=== PATIENT | female | born 1940 | race Caucasian/White ===

== ENCOUNTER → 2017-01-12 | Outpatient (CLI) | payer OTHER, MEDICARE ==
[~2017-01-12] MED LIST: ACET-1256 PO; ASPI81TA28 PO; ATOR-24 PO; CALC500C70 PO; CARV12.5 PO; CYAN100020 PO; DABI150C PO; GABA-113 PO; GARL1TAB13 PO; HYDR25TA5 PO; OMG3 PO
--- NOTE | 2017-01-12 14:20 | DIAGNOSTIC IMAGING REPORT ---
ULTRASOUND-GUIDED FINE-NEEDLE ASPIRATION BIOPSY OF A LEFT LOBE THYROID NODULE CLINICAL HISTORY: Left lobe thyroid nodule COMPARISON STUDY: Outside ultrasound dated 12/14/2016 FINDINGS: The risks of the procedure were explained the patient and informed consent was obtained. Patient prepped in sterile fashion. The skin over the left neck was anesthetized 1% lidocaine. Under ultrasound guidance, 4 passes into the lower pole left lobe nodule were performed utilizing a 25-gauge needle. Initial pathologic review indicates satisfactory material for diagnosis. There were no immediate complications. IMPRESSION: Successful ultrasound-guided fine-needle aspiration biopsy of a lower pole left lobe thyroid nodule. Electronically signed by: Rajendra Solorio M.D. 01/12/2017 2:19 PM Dictated Date/Time: 01/12/2017 2:18 PM
== END | disposition home or self-care (01) ==
LOC: C.ULTR 12:12
DX: E04.1 Nontoxic single thyroid nodule (principal)

== ENCOUNTER 2018-11-08 11:39 | Inpatient (IN) ==
[2018-11-08] MEDS ORDERED: ACETAMINOPHEN 325 MG TAB PO PRN (14:30)
--- NOTE | 2018-11-08 14:56 | XRay Report ---
XR chest 1V portable CLINICAL HISTORY: SOB COMPARISON STUDY: 12/18/2014 FINDINGS: The heart is enlarged. There is diffuse elevation of the interstitium, likely secondary to pulmonary vascular congestion/fluid overload. There is no lobar consolidation. There are no significa nt pleural effusions.[ IMPRESSION: Cardiomegaly and elevation of the interstitium, likely secondary to congestive failure/fl uid overload. No evidence of lobar consolidation Electronically signed by: Rajendra Solorio M.D. 11/08/2018 2:55 PM
--- NOTE | 2018-11-08 15:21 | History & Physical Report ---
Date of Service November 08, 2018 Assessment & Plan (1) Atrial fibrillation: Pt presents as transfer from [facility] for onset of a-fib RVR this morning. She was admitted there one day ago for SOB, wheezing and diagnosed with RSV on PCR test. Pt with hx PAF. This morning reported heart rate as high as 160. There was given metoprolol 5 mg IV without control of heart rate and was then given Cardizem 20 mg IVP and then placed on Cardizem drip currently at 10 mg/h with HR still elevated in 120-150's. Unsure if pt was receiving her home doses of metoprolol and pradaxa while in hospital Upon arrival to [facility] pt with HR 120's-150's, BP: 98/72, R: 23, 96% on 5L oxygen NC and afebrile -cardiology consult - Dr Prince, appreciate recommendations * heparin IV * IV amiodarone * echo recommended when heart rate decreases per cardiology (2) CHF (congestive heart failure): (3) SOB (shortness of breath): (4) Asthma: (5) HTN (hypertension): (6) Obesity: History of Present Illness Chief Complaint: A-fib RVR Primary Care Provider: Brad Ramirez DO Pt is 77 y/o F with PMH HTN, dyslipidemia, atrial fibrillation on Pradaxa, asthma, diastolic dysfunction, LVH, dynamic LVOT obstruction, obesity, osteoarthritis, GERD presented to [facility] from [facility] for atrial fibrillation with RVR. Patient states was seen at urgent care center 2 days ago for congestion and nonproductive cough that she has been having for several days. She reports was prescribed prednisone and Augmentin. Patient states that increased shortness of breath so went to ER at [facility] yesterday and was admitted to hospital. It is reported that patient was noted to be tachypneic, wheezing in ER with respiratory rate of 32 patient was placed on 2 L oxygen nasal cannula and had unremarkable ABG. It is reported no leukocytosis. Patient was found to have positive RSV and negative influenza on respiratory PCR. She was treated with DuoNeb and later Pulmicort nebs, methylprednisolone IV, and oxygen was increased to 5 L NC. CXR: "Bilateral opacities representing multifocal pneumonia or pulmonary edema". Patient was given dose of cefepime. This morning patient was found to be in atrial fibrillation RVR with heart rate as high as 160. Reported BP 170/62, R: 24. Patient was given metoprolol 5 mg IV without control of heart rate and was then given Cardizem 20 mg IVP and then placed on Cardizem drip currently at 10 mg/h with reported heart rate still in the 1 teens. Upon arrival to [facility] patient heart rate 120s-160s in atrial fibrillation. Patient denies chest pain, palpitations. States she feels tired. Does report still feels short of breath however feels it is improved from when she initially presented to [facility] yesterday. Patient reports she is unsure if she was receiving her metoprolol or pradaxa while in the hospital [place]. She reports chronic BLE edema and doesn't feel has increased LE edema. Follows with Dr Archer for cardiology. Pt reports chronic orthopnea. Denies fever/chills, diaphoresis, N/V/D/C, [place], dizziness, syncope, vision changes, neck pain, sore throat, choking, otalgia, abdominal pain, paresthesias, rashes, urinary symptoms. Allergies Allergy/AdvReac Type Severity Reaction Status Date / Time rivaroxaban Allergy Unknown RASH Unverified 05/27/16 07:10 adhesive AdvReac Mild TAPE - Verified 05/27/16 07:10 TEARS SKIN Home Medications Home Medications Medication Instructions Recorded Confirmed Type albuterol sulfate 2 puff INHALATION QID PRN 11/08/18 11/08/18 History aspirin 81 mg PO DAILY 11/08/18 11/08/18 History cyanocobalamin (vitamin B-12) 1,000 mcg PO DAILY 11/08/18 11/08/18 History [Vitamin B-12] dabigatran etexilate [Pradaxa] 150 mg PO BID 11/08/18 11/08/18 History fluticasone [Flovent HFA] 2 inh INHALATION BID 11/08/18 11/08/18 History furosemide 40 mg PO DAILY 11/08/18 11/08/18 History garlic 1,000 mg PO DAILY 11/08/18 11/08/18 History lorazepam 0.5 mg PO TID PRN 11/08/18 11/08/18 History melatonin 10 mg PO HS PRN 11/08/18 11/08/18 History metoprolol tartrate 100 mg PO TID 11/08/18 11/08/18 History nystatin 100,000 11/08/18 History omega 7-kvy-erw-fish oil [Fish Oil] 1 cap PO DAILY 11/08/18 11/08/18 History potassium chloride [Klor-Con 10] 10 meq PO DAILY 11/08/18 11/08/18 History triamcinolone acetonide 0.1 % TOPICAL BID 11/08/18 11/08/18 History Past Med/Surg History Medical History CHF (congestive heart failure) (Chronic) LVH (left ventricular hypertrophy) (Chronic) Diastolic dysfunction (Chronic) GERD (gastroesophageal reflux disease) (Chronic) Osteoarthritis (Chronic) Obesity (Chronic) Asthma (Chronic) Atrial fibrillation (Chronic) Dyslipidemia (Chronic) HTN (hypertension) (Chronic) Spinal stenosis at L4-L5 level (Chronic) Surgical History History of spinal fusion (Chronic) L4-L5 Hx of tonsillectomy (Chronic) History of appendectomy (Chronic) History of arthroplasty of knee (Chronic) History of carpal tunnel surgery (Chronic) Social History Preferred Language: Yakut Communication Ability: Effective Beliefs That Will Affect Care: None Current Living Situation: Spouse Other Information That Helps Us Care for You: No Feels Safe at Home: Yes Safety Concerns: Feels Safe At This Time Smoking Status: Never smoker Hx Alcohol Use: No Hx Substance Use: No Review of Systems All systems reviewed & are unremarkable except as noted in HPI & below Physical Exam Vital Signs (Past 24 Hours): Last Vital Signs Temp 37.4 C 11/08/18 14:00 Pulse 127 H 11/08/18 14:00 Resp 23 11/08/18 14:00 BP 98/72 L 11/08/18 14:00 Pulse Ox 96 11/08/18 14:00 Physical Exam: General: mild respiratory distress, obese Head: normocephalic, atraumatic Eyes: PERRL, EOM's intact, conjunctiva non-injected, anicteric ENT: normal inspection external ears, nose, mucous membranes moist Neck: supple, trachea midline Lungs:mild respiratory distress, R:24, on 5L NC oxygen with sats 96%, diminished, +wheezing and rhonchi CV: irregularly irregular, rate 140, 1 2+ pretibial edema Abd: normal BS, soft, distended secondary to adipose tissue, non-tender Ext: no calf tenderness, skin discoloration and dry skin lower extremities Neuro: A&O x 3, no focal deficits noted, normal affect Skin: warm, dry Results & Data Laboratory Results Short CBC 11/08/18 Range/Units 15:10 WBC 7.55 (4.8-10.8) K/uL Hgb 13.0 (12.0-16.0) g/dL Hct 40.5 (37-47) % Plt Count 164 (130-400) K/uL BMP 11/08/18 15:10 Sodium 139 Potassium 4.0 Chloride 104 Carbon Dioxide 28 BUN 24 H Creatinine 1.01 Glucose 149 H Calcium 9.0 Cardiac Enzymes 11/08/18 11/08/18 Range/Units 15:10 15:10 Troponin I < 0.015 Cancelled (0-0.045) ng/ml Liver Function 11/08/18 Range/Units 15:10 Total Bilirubin 0.9 (0.2-1) mg/dl AST 12 L (15-37) U/L ALT 18 (12-78) U/L Alkaline Phosphatase 81 (45-117) U/L Albumin 3.1 L (3.4-5.0) gm/dl Diagnostic Findings CXR: IMPRESSION: Cardiomegaly and elevation of the interstitium, likely secondary to congestive failure/fluid overload. No evidence of lobar consolidation ECG Rate (beats per minute): 139 Rhythm: atrial fibrillation Additional Comments: inferior lateral ST abnormality Supervising Physician Co-Signing Physician Notes Attending addendum: The patient was seen and examined Was transferred from [facility] with AF with RVR Denies any sympstoms On Examination No apparent distress Hemodynamically stable with Tachycardia with Atrial Fibrillation Chest-decreased breath sound bilaterally with occasional wheezing and bibasilar crackles Heart-Irregularly irregulater Abdomen-benign Legs-Trace bilateral edema Labs ,imaging studies ant EKG reviewed Appreciate Cardiology input and recommendation Agree with the assessment and plan as outlined by Cesilia Kennedy
--- NOTE | 2018-11-08 15:34 | Cardiology Consultation ---
Date of Consultation November 08, 2018 Assessment & Plan (1) Atrial fibrillation: She is in atrial fibrillation with a rapid heart rate, the heart rate here is 140 bpm and has been since she arrived. She has not responded well to intravenous diltiazem but I believe her beta-blockers were held. She has evidence of congestive heart failure which is most likely diastolic in part due to the rapid heart rate although she also has signs of volume overload. The atrial fibrillation is certainly not helping, I do not know how long she has been in it but it may have something to do with her presentation since she was unaware of being in it. I think we need to get the heart rate under control, and it would probably help to get her back in sinus rhythm. Her last dose of Pradaxa that she took was the evening of November 06, 2018 and I do not believe she has been on an anticoagulant. We need to anticoagulate her, I would use heparin at the moment since we are not sure she will not need some procedure although I doubt it. I am going to start intravenous amiodarone, that will hopefully help with rate control and possibly conversion of her arrhythmia. (2) CHF (congestive heart failure): He has evidence of congestive heart failure on chest x-ray and that may contribute to her bronchospasm and wheezing. She does need to be diuresed despite her low blood pressure. She also has evidence of fluid overload with peripheral edema. It is possible that she has been in atrial fibrillation for longer than she realizes since she is not aware of it. (3) LVH (left ventricular hypertrophy): She has a history of left ventricular hypertrophy and a mid cavitary outflow tract gradient, this was stable as of her most recent echocardiogram which was in May 2018. Although we should probably repeat the ec hocardiogram this admission I would not do it now with a rapid heart rate, the results would most likely be quite misleading. (4) Anticoagulant long-term use: She is on Pradaxa as an outpatient, her last dose was the evening of November 06, 2018. We could continue that here, however I would prefer to use a short acting anticoagulant since she has been off of it now for about 36 hours. I am therefore going to start heparin, that way if we need to we can stop it. Probably when she goes home we can restart the Pradaxa however as she seemed to be tolerating it well. History of Present Illness Reason for Consultation: Atrial fibrillation of the rapid heart rate Attending Physician: Shana Aponte DO History of Present Illness This is a very pleasant 77-year-old woman who follows in our office with Dr. Archer for hypercholesterolemia, hypertension, left ventricular hypertrophy with a dynamic left ventricular outflow tract obstruction, diastolic dysfunction as well as paroxysmal atrial fibrillation. She presented to [facility] with severe shortness of breath, tachypnea and rapid atrial fibrillation. She was not aware of the atrial fibrillation when she presented to [facility], she is aware of it at times but evidently not always. She is normally maintained on Pradaxa but that is on hold I believe. Her rapid atrial fibrillation was treated with intravenous diltiazem. She is on beta-blockade at home, I believe that was held as well. At the time of my evaluation just after she arrived in transfer she was feeling short of breath and audibly wheezing, she was not in severe distress however and denies chest discomfort, palpitations, or recent exertional shortness of breath until this recent episode. She does note swelling over the last several months of both legs, the left greater than the right, but that has not worsened recently. Allergies Allergy/AdvReac Type Severity Reaction Status Date / Time rivaroxaban Allergy Unknown RASH Unverified 05/27/16 07:10 adhesive AdvReac Mild TAPE - Verified 05/27/16 07:10 TEARS SKIN Home Medications Home Medications Medication Instructions Recorded Confirmed Type albuterol sulfate 2 puff INHALATION QID PRN 11/08/18 11/08/18 History aspirin 81 mg PO DAILY 11/08/18 11/08/18 History cyanocobalamin (vitamin B-12) 1,000 mcg PO DAILY 11/08/18 11/08/18 History [Vitamin B-12] dabigatran etexilate [Pradaxa] 150 mg PO BID 11/08/18 11/08/18 History fluticasone [Flovent HFA] 2 inh INHALATION BID 11/08/18 11/08/18 History furosemide 40 mg PO DAILY 11/08/18 11/08/18 History garlic 1,000 mg PO DAILY 11/08/18 11/08/18 History lorazepam 0.5 mg PO TID PRN 11/08/18 11/08/18 History melatonin 10 mg PO HS PRN 11/08/18 11/08/18 History metoprolol tartrate 100 mg PO TID 11/08/18 11/08/18 History metoprolol tartrate 100 mg PO TID 11/08/18 11/08/18 History nystatin 100,000 11/08/18 History omega 3-gjm-kve-fish oil [Fish Oil] 1 cap PO DAILY 11/08/18 11/08/18 History potassium chloride [Klor-Con 10] 10 meq PO DAILY 11/08/18 11/08/18 History triamcinolone acetonide 0.1 % TOPICAL BID 11/08/18 11/08/18 History Patient History Medical History LVH (left ventricular hypertrophy) (Chronic) Diastolic dysfunction (Chronic) GERD (gastroesophageal reflux disease) (Chronic) Osteoarthritis (Chronic) Obesity (Chronic) Asthma (Chronic) Atrial fibrillation (Chronic) Dyslipidemia (Chronic) HTN (hypertension) (Chronic) Spinal stenosis at L4-L5 level (Chronic) Social History Preferred Language: Czech Communication Ability: Effective Beliefs That Will Affect Care: None Current Living Situation: Spouse Other Information That Helps Us Care for You: No Feels Safe at Home: Yes Safety Concerns: Feels Safe At This Time Smoking Status: Never smoker Hx Alcohol Use: No Hx Substance Use: No Review of Systems Negative for lightheadedness, dizziness, palpitations, presyncope or syncope. Recent worsening of dyspnea on exertion, no exertional chest pain. No orthopnea or PND, recent peripheral edema. No GI complaints, no bleeding. No neurologic complaints such as TIA or stroke symptoms. Other systems negative. Physical Exam Vital Signs (Past 24 Hours): Last Vital Signs Temp 37.4 C 11/08/18 14:00 Pulse 127 H 11/08/18 14:00 Resp 23 11/08/18 14:00 BP 98/72 L 11/08/18 14:00 Pulse Ox 96 11/08/18 14:00 Physical Exam: Constitutional: Alert, cooperative and in no distress. HEENT: Unremarkable Neck: No jugular venous distention, carotid pulses are irregular but otherwise normal and equal bilaterally without bruits. Pulmonary: Bilateral rhonchi as well as expiratory wheezing throughout the chest. Cardiac: Irregular rapid rhythm with no murmur, gallop or rub. Abdomen: Soft, nontender with normal bowel sounds. Extremities: +1 bilateral pretibial edema. Distal pulses intact. Neurologic: No focal findings. Gait is steady. Skin: No rash, ecchymoses or petechiae. Results & Data Diagnostic Findings Electrocardiogram: Echocardiogram shows atrial fibrillation with a heart rate of 140 bpm, inferolateral ST-T abnormalities Chest x-ray: Consistent with CHF and pulmonary edema, cardiomegaly although that may be projection on a portable film Telemetry: Sustained high rate during atrial fibrillation since arrival
[2018-11-08] MEDS: dilTIAZem HCl 125 MG in DEXTROSE 5% 100 ML IV SCH ×2 (15:39→22:46)
[2018-11-08] MEDS ORDERED: AMIODARONE IV BOLUS / DRIP IV STA (15:48)
[2018-11-08 15:58] LABS: Basophils # (auto) 0.01 K/uL (0-0.2); Basophils % (auto) 0.1 %; Hematocrit (blood only) 40.5 % (37-47); Immature Granulocytes # (auto) 0.01 K/uL (0.00-0.02); Immature Granulocytes % (auto) 0.1 %; Lymphocytes # (auto) 0.81 K/uL (1.2-3.4); Lymphocytes % (auto) 10.7 %; Mean Corpuscular Volume 88.4 fL (80-100); Monocytes # (auto) 0.28 K/uL (0.11-0.59); Monocytes % (auto) 3.7 %; Neutrophils # (auto) 6.44 K/uL (1.4-6.5); Neutrophils % (auto) 85.4 %; Platelet Count 164 K/uL (130-400); RDW Coefficient of Variation 16.3 % (11.5-14.5); RDW Standard Deviation 52.9 fL (36.4-46.3); Red Blood Count 4.58 M/uL (4.2-5.4); White Blood Count 7.55 K/uL (4.8-10.8)
[2018-11-08 16:12] LABS: INR 1.1 (0.9-1.1); Partial Thromboplastin Time 27.2 Seconds (21.0-31.0)
[2018-11-08 16:16] LABS: Alanine Aminotransferase 18 U/L (12-78); Albumin Level 3.1 gm/dl (3.4-5.0); Aspartate Aminotransferase 12 U/L (15-37); BUN Creatinine Ratio 24.2 (10-20); Blood Urea Nitrogen 24 mg/dl (7-18); Carbon Dioxide 28 mmol/L (21-32); Chloride 104 mmol/L (98-107); Creatinine Clr Calc Pharmacy 56.8 ml/min; Est GFR (African American) 61.7; Est GFR (Non-African American) 53.3; Glucose 149 mg/dl (70-99); Magnesium 2.2 mg/dl (1.8-2.4); Sodium 139 mmol/L (136-145)
[2018-11-08 16:20] LABS: Mean Corpuscular Hgb Conc 32.1 g/dL (32-36)
[2018-11-08] MEDS ORDERED: AMIODARONE / D5W 150 MG/100 ML BAG IV STA (16:20)
[2018-11-08 16:25] LABS: Albumin Globulin Ratio 0.7 (0.9-2); Alkaline Phosphatase 81 U/L (45-117); Bilirubin,Total 0.9 mg/dl (0.2-1); Globulin 4.5 gm/dl (2.5-4.0); NT Pro B Type Natriuretic Pept 8003 pg/ml (0-1800); Total Protein 7.6 gm/dl (6.4-8.2); Troponin I < 0.015 ng/ml (0-0.045)
[2018-11-08] MEDS ORDERED: METOPROLOL TARTRATE 1 MG/ML VIAL IV STA (16:25)
[2018-11-08] MEDS ORDERED: HEPARIN IV BOLUS 6,000 UNITS in SYRINGE 0 ML IV ONE (16:30)
[2018-11-08] MEDS ORDERED: AMIODARONE / D5W 360 MG/200 ML BAG IV SCH (16:30)
[2018-11-08] MEDS: HEPARIN STANDARD DEXTROSE 25,000 UNITS/500 ML IV SCH (16:57)
[2018-11-08] MEDS: FUROSEMIDE 20 MG in SYRINGE 0 ML IV SCH ×2 (17:03→21:23)
[2018-11-08] MEDS ORDERED: LEVALBUTEROL HCL 0.63 MG/3 ML NEB NEB SCH (20:00)
[2018-11-08] MEDS ORDERED: IPRATROPIUM BROMIDE NEB SOLN 0.02% 2.5 ML VIAL INH SCH (20:00)
[2018-11-08] MEDS ORDERED: XOPENEX/ATROVENT 0.63mg/0.5MG NEB COMBO NEB SCH (20:00)
[2018-11-08] MEDS ORDERED: IPRATROPIUM BROMIDE NEB SOLN 0.02% 2.5 ML VIAL INH PRN (20:08)
[2018-11-08] MEDS ORDERED: LEVALBUTEROL HCL 0.63 MG/3 ML NEB NEB PRN (20:08)
[2018-11-08] MEDS: FLUTICASONE PROP HFA INH 44 MCG INHALER INH SCH (21:23)
[2018-11-08] MEDS: DOXYCYCLINE HYCLATE 100 MG in DEXTROSE 5% 100 ML IV SCH (21:23)
[2018-11-08] MEDS: LORazepam 0.5 MG TAB PO PRN (21:24)
[2018-11-08] MEDS: AMIODARONE / D5W 360 MG/200 ML BAG IV SCH (22:39)
[2018-11-08 23:53] LABS: Partial Thromboplastin Ratio 2.4
[2018-11-09 00:07] LABS: Partial Thromboplastin Time 65.4 Seconds (21.0-31.0)
[2018-11-09 04:06] LABS: Basophils # (auto) 0.01 K/uL (0-0.2); Basophils % (auto) 0.1 %; Hematocrit (blood only) 39.6 % (37-47); Hemoglobin 12.6 g/dL (12.0-16.0); Immature Granulocytes # (auto) 0.02 K/uL (0.00-0.02); Immature Granulocytes % (auto) 0.2 %; Lymphocytes # (auto) 1.76 K/uL (1.2-3.4); Mean Corpuscular Hgb Conc 31.8 g/dL (32-36); Mean Corpuscular Volume 88.4 fL (80-100); Mean Platelet Volume 9.4 fL (7.4-10.4); Monocytes # (auto) 1.19 K/uL (0.11-0.59); Monocytes % (auto) 12.9 %; Neutrophils # (auto) 6.26 K/uL (1.4-6.5); Neutrophils % (auto) 67.8 %; Platelet Count 146 K/uL (130-400); RDW Coefficient of Variation 16.4 % (11.5-14.5); RDW Standard Deviation 53.2 fL (36.4-46.3); Red Blood Count 4.48 M/uL (4.2-5.4); White Blood Count 9.24 K/uL (4.8-10.8)
[2018-11-09 04:22] LABS: BUN Creatinine Ratio 26.2 (10-20); Blood Urea Nitrogen 26 mg/dl (7-18); Calcium 8.2 mg/dl (8.5-10.1); Carbon Dioxide 30 mmol/L (21-32); Chloride 102 mmol/L (98-107); Est GFR (African American) 63.3; Est GFR (Non-African American) 54.6; Glucose 143 mg/dl (70-99); Potassium 3.8 mmol/L (3.5-5.1); Sodium 137 mmol/L (136-145)
[2018-11-09 04:27] LABS: Partial Thromboplastin Ratio 2.2; Troponin I < 0.015 ng/ml (0-0.045)
[2018-11-09 04:28] LABS: Partial Thromboplastin Time 58.4 Seconds (21.0-31.0)
[2018-11-09] MEDS: dilTIAZem HCl 125 MG in DEXTROSE 5% 100 ML IV SCH ×2 (06:24→13:28)
[2018-11-09] MEDS: LORazepam 0.5 MG TAB PO PRN (08:15)
[2018-11-09] MEDS: FLUTICASONE PROP HFA INH 44 MCG INHALER INH SCH ×2 (08:16→19:56)
[2018-11-09] MEDS: FUROSEMIDE 20 MG in SYRINGE 0 ML IV SCH ×2 (08:17→19:48)
[2018-11-09] MEDS: DOXYCYCLINE HYCLATE 100 MG in DEXTROSE 5% 100 ML IV SCH ×2 (08:37→19:48)
[2018-11-09] MEDS ORDERED: ALBUTEROL 0.083% NEBU SOLN 3 ML VIAL NEB STA (09:35)
[2018-11-09] MEDS ORDERED: DIGOXIN 500 MCG/2 ML AMP IV ONE ×3 (09:37→11:39)
[2018-11-09] MEDS ORDERED: DIGOXIN 250 MCG in SYRINGE 9 ML IV STA (09:44)
--- NOTE | 2018-11-09 09:58 | Cardiology Progress Note ---
Date of Service November 09, 2018 Assessment & Plan (1) Atrial fibrillation: She remains in atrial fibrillation on amiodarone and high-dose diltiazem. Very little change in heart rate. I suspect it is catecholamine driven, however beta-blockers are relatively contraindicated due to her bronchospasm. There is a difficult situation, I will add digoxin although I do not think it will help much. We may need to cardiovert. She ate breakfast so this will have to be done later today. I will consult anesthesia, I discussed it with her. This will probably be later in the day however due to her eating breakfast. (2) CHF (congestive heart failure): He has evidence of congestive heart failure on chest x-ray and that may contribute to her bronchospasm and wheezing. She does need to be diuresed despite her low blood pressure. She also has evidence of fluid overload with peripheral edema. It is possible that she has been in atrial fibrillation for longer than she realizes since she is not aware of it. She did not diuresis much overnight, I am going to increase her diuretic. (3) LVH (left ventricular hypertrophy): She has a history of left ventricular hypertrophy and a mid cavitary outflow tract gradient, this was stable as of her most recent echocardiogram which was in May 2018. Although we should probably repeat the echocardiogram this admission I would not do it now with a rapid heart rate, the results would most likely be quite misleading. (4) Anticoagulant long-term use: She is on Pradaxa as an outpatient, her last dose was the evening of November 06, 2018. We could continue that here, however I would prefer to use a short acting anticoagulant since she has been off of it now for about 36 hours. She is on heparin, that way if we need to we can stop it. Probably when she goes home we can restart the Pradaxa however as she seemed to be tolerating it well. Subjective She continues with a rapid heart rate, she continues to be quite short of breath. She appears uncomfortable. She denies chest discomfort. Physical Exam Vital Signs (Past 24 Hours): Last Vital Signs Temp 37.6 C H 11/09/18 07:35 Pulse 119 H 11/09/18 08:46 Resp 33 H 11/09/18 07:35 BP 99/79 L 11/09/18 07:35 Pulse Ox 93 11/09/18 07:35 Physical Exam: Constitutional: Alert, cooperative and in no distress. Pulmonary: Bilateral expiratory wheezing and rhonchi. Cardiac: Irregular rapid rhythm with no murmur, gallop or rub. Abdomen: Soft, nontender with normal bowel sounds. Extremities: +2 bilateral edema. Skin: No rash, ecchymoses or petechiae. Results & Data Diagnostic Findings Telemetry: Very little change in heart rate, it remains very elevated.
[2018-11-09] MEDS: methylPREDNISolone 40 MG in SYRINGE 0 ML IV SCH ×2 (10:11→17:36)
[2018-11-09] MEDS: HEPARIN STANDARD DEXTROSE 25,000 UNITS/500 ML IV SCH (11:08)
[2018-11-09] MEDS: AMIODARONE / D5W 360 MG/200 ML BAG IV SCH ×2 (11:09→22:11)
[2018-11-09] MEDS ORDERED: DIGOXIN 250 MCG in SYRINGE 9 ML IV ONE (11:45)
[2018-11-09 12:01] LABS: Allen Test POS (Pos); HCO3 ABG 28 mmol/L (19-24); Oxygen Saturation ABG 92.3 % (90-95); PCO2 ABG 40 mmHg (35-46); PO2 ABG 61 mm/Hg (80-95); pH ABG 7.47 (7.35-7.45)
--- NOTE | 2018-11-09 12:27 | Critical Care Consultation ---
Date of Consultation November 09, 2018 Assessment & Plan (1) Atrial fibrillation with RVR: Reason Critically Ill: 77-year-old female admitted with A. fib RVR and respiratory failure, unable to control rate with amnio drip, diltiazem drip, and digoxin. Will likely need cardioversion this afternoon. Neuro [facility] ICU: Negative Cardiac A. fib RVR/CHFA. fib rate of 170s on monitor, history of paradoxical A. fib, likely has been in A. fib for a while considering pulmonary edema and left ventricular dysfunction -Chest x-ray consistent with pulmonary edema suggestive of CHF -Started on Lasix twice daily by cardiology, given 40 mg IV Lasix on arrival to ICU -We will likely need cardioversion this afternoon -Will give IV metoprolol despite risk for asthma exacerbation -We will obtain TTE once heart rate controlled -Continuing diltiazem and amiodarone drips, digoxin given per cardiology, appreciate recommendations -Continuing heparin drip, patient on Pradaxa as home med but has not taken for past 36 hours Respiratory Hypoxic respiratory failure/asthma exacerbation/pulmonary edemachest x-ray consistent with pulmonary edema, wheezes auscultated over bronchials, likely mixed -Holding albuterol given heart rate -Continue Xopenex -Continue aggressive diuresis -Started on CPAP -ABG: PH 7.47/40/61/28 -Strict I's and O GI GERDcontinue PPI RENAL/LYTES Maximize electrolytes, monitor with routine BMPs and replete as appropriate Voiding no issues ENDO ICU hyperglycemic protocol HEME H&H stable, routine CBCs ID No indication for infectious process at this time LINES/IV ACCESS Peripheral IVs DVT PROPHYLAXIS SCDs, heparin drip (2) CHF (congestive heart failure): (3) Asthma: (4) SOB (shortness of breath): Supervising Physician Co-Signing Physician Notes I have personally evaluated and examined this patient. I agree with assessment and plan of Dot QUARLES. Patient in atrial fibrillation with RVR and hypoxic upon presentation discontinue diltiazem and transition to beta-blockade given 5 mg IV x3 and had significant rate control. She was also started on CPAP with a pressure of 8 cm of water which significantly improved her acute hypoxic respiratory failure. Patient was later cardioverted by cardiology and anesthesia, she had to wait an 8-hour period after having a full meal. This time we will continue with beta-blockade and amiodarone and optimize the patient's electrolytes. Anticipate that the patient has obstructive sleep apnea at baseline, she is morbidly obese with a BMI of 48.5. History of Present Illness Attending Physician: Shana Aponte DO History of Present Illness Ms. Frank is a 77-year-old female past medical history of PAF who was a transfer from [facility] for A. fib RVR, shortness of breath, wheezing. She was found to be positive RSV per PCR at [place]. On arrival to [facility] heart rate was in 150s. She was given 2.5 mg metoprolol IV, amiodarone bolus and drip, diltiazem bolus and drip, and started on digoxin this morning. Chest x-ray yesterday showed signs of pulmonary edema and she was started on Lasix. Heart rate continues to persist in 160s-170s in A. fib RVR. Patient has become increasingly short of breath this morning. Cardiology consulted and recommended increasing Lasix and possible cardioversion this afternoon. On arrival to the ICU the patient is short of breath, breathing shallow and rapidly with respiratory rate in the 30s. She claims she is tired and uncomfortable, ABGs showed mild hypoxia on 3 L nasal cannula and patient switched to CPAP. Also giving IV Lasix. Patient denies chest pain, dizziness, lightheadedness, drowsiness. We will plan to cardiovert this afternoon once outside of 8 hours from patient's last meal which was approximately 0800 this morning. Patient will remain in ICU for now for management of A. fib RVR and respiratory failure. Allergies Allergy/AdvReac Type Severity Reaction Status Date / Time rivaroxaban Allergy Unknown RASH Unverified 05/27/16 07:10 adhesive AdvReac Mild TAPE - Verified 05/27/16 07:10 TEARS SKIN Home Medications Home Medications Medication Instructions Recorded Confirmed Type albuterol sulfate 2 puff INHALATION QID PRN 11/08/18 11/08/18 History aspirin 81 mg PO DAILY 11/08/18 11/08/18 History cyanocobalamin (vitamin B-12) 1,000 mcg PO DAILY 11/08/18 11/08/18 History [Vitamin B-12] dabigatran etexilate [Pradaxa] 150 mg PO BID 11/08/18 11/08/18 History fluticasone [Flovent HFA] 2 inh INHALATION BID 11/08/18 11/08/18 History furosemide 40 mg PO DAILY 11/08/18 11/08/18 History garlic 1,000 mg PO DAILY 11/08/18 11/08/18 History lorazepam 0.5 mg PO TID PRN 11/08/18 11/08/18 History melatonin 10 mg PO HS PRN 11/08/18 11/08/18 History metoprolol tartrate 100 mg PO TID 11/08/18 11/08/18 History nystatin 100,000 11/08/18 History omega 6-cug-gcy-fish oil [Fish Oil] 1 cap PO DAILY 11/08/18 11/08/18 History potassium chloride [Klor-Con 10] 10 meq PO DAILY 11/08/18 11/08/18 History triamcinolone acetonide 0.1 % TOPICAL BID 11/08/18 11/08/18 History Patient History Medical History CHF (congestive heart failure) (Chronic) LVH (left ventricular hypertrophy) (Chronic) Diastolic dysfunction (Chronic) GERD (gastroesophageal reflux disease) (Chronic) Osteoarthritis (Chronic) Obesity (Chronic) Asthma (Chronic) Atrial fibrillation (Chronic) Dyslipidemia (Chronic) HTN (hypertension) (Chronic) Spinal stenosis at L4-L5 level (Chronic) Surgical History History of spinal fusion (Chronic) L4-L5 Hx of tonsillectomy (Chronic) History of appendectomy (Chronic) History of arthroplasty of knee (Chronic) History of carpal tunnel surgery (Chronic) Family History Other AAA (abdominal aortic aneurysm) Coronary heart disease Hypertension Thyroid disease Social History Communication Ability: Effective Beliefs That Will Affect Care: None Current Living Situation: Spouse Other Information That Helps Us Care for You: No Feels Safe at Home: Yes Safety Concerns: Feels Safe At This Time Smoking Status: Never smoker Hx Alcohol Use: No Hx Substance Use: No Review of Systems 12 system ROS negative except for as noted in HPI. See above Constitutional: as per Subjective / HPI Physical Exam Vital Signs (Past 24 Hours): Last Vital Signs Temp 37 C 11/09/18 11:43 Pulse 143 H 11/09/18 11:43 Resp 33 H 11/09/18 11:43 BP 104/85 11/09/18 11:43 Pulse Ox 92 11/09/18 11:43 Constitutional: Obese, acute distress Eyes: PERRL, conjunctivae normal, anicteric sclerae ENMT: external ear and nose normal, oropharynx normal Neck: trachea midline, no thyromegaly Respiratory: Bronchial wheezes auscultated, coarse crackles auscultated bilaterally in all lobes, labored shallow breathing, tachypnea, symmetrical chest wall movement Cardiovascular: No JVD, no edema, good peripheral perfusion, irregular tachycardia consistent with atrial fibrillation on monitor Gastrointestinal (Abdomen): normal bowel sounds, soft, nontender, no hepatosplenomegaly Neurologic: Alert and oriented x3, PERRLA Results & Data Laboratory Results Laboratory Results - last 24 hr 11/08/18 11/08/18 11/08/18 15:10 15:10 15:10 WBC 7.55 RBC 4.58 Hgb 13.0 Hct 40.5 MCV 88.4 MCH 28.4 MCHC 32.1 RDW Std Deviation 52.9 H RDW Coeff of [place] 16.3 H Plt Count 164 MPV 10.0 Immature Gran % (Auto) 0.1 Neut % (Auto) 85.4 Lymph % (Auto) 10.7 [place] % (Auto) 3.7 Eos % (Auto) 0.0 Baso % (Auto) 0.1 Immature Gran # (Auto) 0.01 Neut # (Auto) 6.44 Lymph # (Auto) 0.81 L [place] # (Auto) 0.28 Eos # (Auto) 0.00 Baso # (Auto) 0.01 PT INR APTT PTT Ratio ABG pH ABG pCO2 ABG pO2 ABG HCO3 ABG O2 Saturation ABG Base Excess Abbe Test Barometric Pressure Oxygen Given Sodium 139 Potassium 4.0 Chloride 104 Carbon Dioxide 28 Anion Gap 7.0 BUN 24 H Creatinine 1.01 Est Cr Clr Drug Dosing 56.8 Est GFR ( Amer) 61.7 Est GFR (Non-Af Amer) 53.3 BUN/Creatinine Ratio 24.2 H Glucose 149 H Lactate Calcium 9.0 Magnesium 2.2 Total Bilirubin 0.9 AST 12 L ALT 18 Alkaline Phosphatase 81 Troponin I < 0.015 NT-Pro-B Natriuret Pep 8003 H Total Protein 7.6 Albumin 3.1 L Globulin 4.5 H Albumin/Globulin Ratio 0.7 L Procalcitonin < 0.05 TSH 1.060 11/08/18 11/08/18 11/08/18 15:10 15:10 15:23 WBC RBC Hgb Hct MCV MCH MCHC RDW Std Deviation RDW Coeff of [place] Plt Count MPV Immature Gran % (Auto) Neut % (Auto) Lymph % (Auto) [place] % (Auto) Eos % (Auto) Baso % (Auto) Immature Gran # (Auto) Neut # (Auto) Lymph # (Auto) [place] # (Auto) Eos # (Auto) Baso # (Auto) PT 11.0 INR 1.1 APTT 27.2 PTT Ratio 1.0 ABG pH ABG pCO2 ABG pO2 ABG HCO3 ABG O2 Saturation ABG Base Excess Abbe Test Barometric Pressure Oxygen Given Sodium Potassium Chloride Carbon Dioxide Anion Gap BUN Creatinine Est Cr Clr Drug Dosing Est GFR ( Amer) Est GFR (Non-Af Amer) BUN/Creatinine Ratio Glucose Lactate Calcium Magnesium Total Bilirubin AST ALT Alkaline Phosphatase Troponin I Cancelled NT-Pro-B Natriuret Pep Cancelled Total Protein Albumin Globulin Albumin/Globulin Ratio Procalcitonin TSH 11/08/18 11/08/18 11/08/18 15:23 21:24 22:58 WBC RBC Hgb Hct MCV MCH MCHC RDW Std Deviation RDW Coeff of [place] Plt Count MPV Immature Gran % (Auto) Neut % (Auto) Lymph % (Auto) [place] % (Auto) Eos % (Auto) Baso % (Auto) Immature Gran # (Auto) Neut # (Auto) Lymph # (Auto) [place] # (Auto) Eos # (Auto) Baso # (Auto) PT INR APTT 65.4 H* PTT Ratio 2.4 ABG pH ABG pCO2 ABG pO2 ABG HCO3 ABG O2 Saturation ABG Base Excess Abbe Test Barometric Pressure Oxygen Given Sodium Potassium Chloride Carbon Dioxide Anion Gap BUN Creatinine Est Cr Clr Drug Dosing Est GFR ( Amer) Est GFR (Non-Af Amer) BUN/Creatinine Ratio Glucose Lactate 1.2 Calcium Magnesium Total Bilirubin AST ALT Alkaline Phosphatase Troponin I < 0.015 NT-Pro-B Natriuret Pep Total Protein Albumin Globulin Albumin/Globulin Ratio Procalcitonin [facility] 11/09/18 11/09/18 11/09/18 03:41 03:41 03:41 WBC 9.24 RBC 4.48 Hgb 12.6 Hct 39.6 MCV 88.4 MCH 28.1 MCHC 31.8 L RDW Std Deviation 53.2 H RDW Coeff of [place] 16.4 H Plt Count 146 MPV 9.4 Immature Gran % (Auto) 0.2 Neut % (Auto) 67.8 Lymph % (Auto) 19.0 [place] % (Auto) 12.9 Eos % (Auto) 0.0 Baso % (Auto) 0.1 Immature Gran # (Auto) 0.02 Neut # (Auto) 6.26 Lymph # (Auto) 1.76 [place] # (Auto) 1.19 H Eos # (Auto) 0.00 Baso # (Auto) 0.01 PT INR APTT 58.4 H* PTT Ratio 2.2 ABG pH ABG pCO2 ABG pO2 ABG HCO3 ABG O2 Saturation ABG Base Excess Abbe Test Barometric Pressure Oxygen Given Sodium 137 Potassium 3.8 Chloride 102 Carbon Dioxide 30 Anion Gap 5.0 BUN 26 H Creatinine 0.99 Est Cr Clr Drug Dosing 58.0 Est GFR ( Amer) 63.3 Est GFR (Non-Af Amer) 54.6 BUN/Creatinine Ratio 26.2 H Glucose 143 H Lactate Calcium 8.2 L Magnesium Total Bilirubin AST ALT Alkaline Phosphatase Troponin I < 0.015 NT-Pro-B Natriuret Pep Total Protein Albumin Globulin Albumin/Globulin Ratio Procalcitonin [facility] 11/09/18 11:33 WBC RBC Hgb Hct MCV MCH MCHC RDW Std Deviation RDW Coeff of [place] Plt Count MPV Immature Gran % (Auto) Neut % (Auto) Lymph % (Auto) [place] % (Auto) Eos % (Auto) Baso % (Auto) Immature Gran # (Auto) Neut # (Auto) Lymph # (Auto) [place] # (Auto) Eos # (Auto) Baso # (Auto) PT INR APTT PTT Ratio ABG pH 7.47 H ABG pCO2 40 ABG pO2 61 L ABG HCO3 28 H ABG O2 Saturation 92.3 ABG Base Excess 4.2 H Abbe Test POS Barometric Pressure 732.6 Oxygen Given 3L Sodium Potassium Chloride Carbon Dioxide Anion Gap BUN Creatinine Est Cr Clr Drug Dosing Est GFR ( Amer) Est GFR (Non-Af Amer) BUN/Creatinine Ratio Glucose Lactate Calcium Magnesium Total Bilirubin AST ALT Alkaline Phosphatase Troponin I NT-Pro-B Natriuret Pep Total Protein Albumin Globulin Albumin/Globulin Ratio Procalcitonin TSH Medications Administered Home Medications albuterol sulfate 2 puff INHALATION QID PRN 11/08/18 [History Confirmed 11/08/18] aspirin 81 mg PO DAILY 11/08/18 [History Confirmed 11/08/18] cyanocobalamin (vitamin B-12) [Vitamin B-12] 1,000 mcg PO DAILY 11/08/18 [History Confirmed 11/08/18] dabigatran etexilate [Pradaxa] 150 mg PO BID 11/08/18 [History Confirmed 11/08/18] fluticasone [Flovent HFA] 2 inh INHALATION BID 11/08/18 [History Confirmed 11/08/18] furosemide 40 mg PO DAILY 11/08/18 [History Confirmed 11/08/18] garlic 1,000 mg PO DAILY 11/08/18 [History Confirmed 11/08/18] lorazepam 0.5 mg PO TID PRN 11/08/18 [History Confirmed 11/08/18] melatonin 10 mg PO HS PRN 11/08/18 [History Confirmed 11/08/18] metoprolol tartrate 100 mg PO TID 11/08/18 [History Confirmed 11/08/18] nystatin 100,000 11/08/18 [History] omega 7-zsb-rgd-fish oil [Fish Oil] 1 cap PO DAILY 11/08/18 [History Confirmed 11/08/18] potassium chloride [Klor-Con 10] 10 meq PO DAILY 11/08/18 [History Confirmed 11/08/18] triamcinolone acetonide 0.1 % TOPICAL BID 11/08/18 [History Confirmed 11/08/18] Active Medications Acetaminophen (Tylenol) 650 mg PO Q4H PRN PRN Reason: Pain or Fever Stop: 12/08/18 14:29 Fluticasone Propionate (Flovent Hfa 44mcg) 2 puffs INH BID EWA Stop: 12/08/18 20:59 Last Admin: 11/09/18 08:16 Dose: 2 puffs Documented by: Diltiazem HCl 125 mg/ Dextrose 125 mls @ 15 mls/hr IV .Q8H20M [facility]; Protocol Stop: 12/08/18 14:44 Last Titration: 11/09/18 13:50 Dose: 0 mg/hr, 0 mls/hr Documented by: Amiodarone HCl/Dextrose (Nexterone / D5w) 360 mg in 200 mls @ 16.667 mls/hr IV .Q12H [facility] Stop: 12/08/18 22:29 Last Admin: 11/09/18 11:09 Dose: 0.5 mg/min, 16.7 mls/hr Documented by: Furosemide 20 mg/ Syringe 2 mls @ 4 mls/min IV BID [facility] Stop: 12/08/18 16:29 Last Admin: 11/09/18 08:17 Dose: 4 mls/min Documented by: Doxycycline Hyclate 100 mg/ (Dextrose) 110 mls @ 50 mls/hr IV BID [facility] Stop: 11/15/18 20:59 Last Infusion: 11/09/18 10:50 Dose: Infused Documented by: Heparin Sodium/Dextrose (Heparin Sodium/Dextrose) 25,000 units in 500 mls @ 28 mls/hr IV .[id number] [facility]; Protocol Stop: 12/08/18 16:14 Last Admin: 11/09/18 11:08 Dose: 1,400 units/hr, 28 mls/hr Documented by: Methylprednisolone 40 mg/ (Syringe) 0.64 mls @ 1.5 mls/min IV Q8H [facility] Stop: 12/09/18 09:59 Last Admin: 11/09/18 10:11 Dose: 1.5 mls/min Documented by: Ipratropium [place] (Atrovent 0.02% 0.5mg/2.5ml) 0.5 mg INH Q6R PRN PRN Reason: Shortness Of Breath Or Wheezing Stop: 12/09/18 13:14 Levalbuterol HCl (Xopenex 0.63 Mg/3 Ml Neb) 0.63 mg NEB Q6R PRN PRN Reason: Shortness Of Breath Or Wheezin Stop: 12/09/18 13:14 Lorazepam (Ativan) 0.5 mg PO TID PRN PRN Reason: Anxiety Stop: 12/08/18 15:58 Last Admin: 11/09/18 08:15 Dose: 0.5 mg Documented by:
--- NOTE | 2018-11-09 12:56 | Hospitalist Progress Note ---
Date of Service November 09, 2018 Assessment & Plan (1) Hypoxia: Multifactorial 2/2 asthma exacerbation 2/2 RSV infection in addition to fluid overload on CHF poss 2/2 diastolic heart failure exacerbation. Also her heart rate is very uncontrolled despite max therapy, which may be contributing, however, she is not reporting symptoms with her atrial fib outside of a short period of time this morning. Cont current treatment for asthma exacerbation including scheduled neb treatments, solumedrol 40mg IV q8h. Doxycycline was started yesterday, however, unsure if this is needed. Will cont for now. One hr neb trt did not improve respiratory status so she was started on BIPAP and transferred to the ICU for further monitoring. Cont Lasix for fluid overload-2L out overnight in response to 40mg IV. Planned elective cardioversion after enough time NPO per Dr. Prince from Cardiology who is giving addiitonal dig IV in the meantime. (2) Acute asthma exacerbation: Plan as above. (3) Atrial fibrillation with RVR: Plan as above. (4) RSV (acute bronchiolitis due to respiratory syncytial virus): Cont supportive care. (5) DVT prophylaxis: Heparin drip Full Dispo-to ICU Shana Aponte DO [facility] Hospitalist Subjective 77-year-old female presented as a transfer from [facility] for acute onset of atrial fibrillation with RVR. She has a history of paroxysmal A. fib. She was also diagnosed with RSV via a PCR test as outpatient 2 days ago. She w as admitted to the hospitalist service and cardiology was consulted. She was placed on IV heparin drip and IV amiodarone. Cardizem drip was initiated for rate control. Chest x-ray revealed fluid overload state. Lasix was initiated at 20 mg IV twice daily. Overnight she room received 40 mg with subsequent 2 L output. She has a history of asthma but denies any exacerbations in the past. She does use inhalers as outpatient. This morning her heart rate is uncontrolled at 150-180. She is wheezing profusely and is tachypneic with a respiratory rate of 30-33. I discussed the case with Dr. Betsey Arce who agrees with digoxin in addition to continuing diltiazem and amiodarone. We discussed that beta-blockers would be contraindicated with her active wheezing. He is planning to perform elective cardioversion if digoxin is unsuccessful later this afternoon. She did eat this morning. On reevaluation after an hour-long nebulizer heart rate was still in the 150s and tachypnea was not improved. Therefore, she was transferred to the ICU for further monitoring and placed on BiPAP for therapy. Continue with duo nebs that were ordered scheduled this morning, IV Solu-Medrol 40 mg every 8 hours (first dose this am), and doxycycline as ordered yesterday. I did leave a message on her 's voicemail as I was unable to reach her or her daughter listed as points of contact. ICU number was left for them to call. Physical Exam Vital Signs (Past 24 Hours): Last Vital Signs Temp 37 C 11/09/18 11:43 Pulse 143 H 11/09/18 11:43 Resp 33 H 11/09/18 11:43 BP 104/85 11/09/18 11:43 Pulse Ox 92 11/09/18 11:43 CONSTITUTIONAL: WNWD, vitals as above, in acute respiratory distress EYES: normal conjuctivae, no scleral icterus ENT: MMM RESPIRATORY: diffuse wheezing throughout all lung richter. Crackles at bases bi laterally. Coarse rhonchi also heard. Repsiratory distress and conversational dyspnea is present. CARDIOVASCULAR: tachy rate and irregular rhythm, S1 and 2 heard without murmurs, but this was difficult to auscultate with the adventitial breath sounds in the background GASTROINTESTINAL: normal bowel sounds, soft, nontender, nondistended. MUSCULOSKELETAL: strength 5/5 throughout, head is normocephalic and atraumatic SKIN: warm and dry NEUROLOGIC: CN 2-12 grossly intact, normal cognition, no gross focal deficits. PSYCHIATRIC: alert cooperative and oriented to person, place and time. Results & Data Laboratory Results Short CBC 11/08/18 11/09/18 Range/Units 15:10 03:41 WBC 7.55 9.24 (4.8-10.8) K/uL Hgb 13.0 12.6 (12.0-16.0) g/dL Hct 40.5 39.6 (37-47) % Plt Count 164 146 (130-400) K/uL BMP 11/08/18 11/09/18 15:10 03:41 Sodium 139 137 Potassium 4.0 3.8 Chloride 104 102 Carbon Dioxide 28 30 BUN 24 H 26 H Creatinine 1.01 0.99 Glucose 149 H 143 H Calcium 9.0 8.2 L Cardiac Enzymes 11/08/18 11/08/18 11/08/18 Range/Units 15:10 15:10 21:24 Troponin I < 0.015 Cancelled < 0.015 (0-0.045) ng/ml 11/09/18 Range/Units 03:41 Troponin I < 0.015 (0-0.045) ng/ml Liver Function 11/08/18 Range/Units 15:10 Total Bilirubin 0.9 (0.2-1) mg/dl AST 12 L (15-37) U/L ALT 18 (12-78) U/L Alkaline Phosphatase 81 (45-117) U/L Albumin 3.1 L (3.4-5.0) gm/dl Medications Administered Current Inpatient Medications Acetaminophen (Tylenol) 650 mg PO Q4H PRN PRN Reason: Pain or Fever Stop: 12/08/18 14:29 Fluticasone Propionate (Flovent Hfa 44mcg) 2 puffs INH BID [facility] Stop: 12/08/18 20:59 Last Admin: 11/09/18 08:16 Dose: 2 puffs Documented by: Diltiazem HCl 125 mg/ Dextrose 125 mls @ 15 mls/hr IV .Q8H20M [facility]; Protocol Stop: 12/08/18 14:44 Last Titration: 11/09/18 07:06 Dose: 15 mg/hr, 15 mls/hr Documented by: Amiodarone HCl/Dextrose (Nexterone / D5w) 360 mg in 200 mls @ 16.667 mls/hr IV .Q12H [facility] Stop: 12/08/18 22:29 Last Admin: 11/09/18 11:09 Dose: 0.5 mg/min, 16.7 mls/hr Documented by: Furosemide 20 mg/ Syringe 2 mls @ 4 mls/min IV BID [facility] Stop: 12/08/18 16:29 Last Admin: 11/09/18 08:17 Dose: 4 mls/min Documented by: Doxycycline Hyclate 100 mg/ (Dextrose) 110 mls @ 50 mls/hr IV BID [facility] Stop: 11/15/18 20:59 Last Infusion: 11/09/18 10:50 Dose: Infused Documented by: Heparin Sodium/Dextrose (Heparin Sodium/Dextrose) 25,000 units in 500 mls @ 28 mls/hr IV .[id number] [facility]; Protocol Stop: 12/08/18 16:14 Last Admin: 11/09/18 11:08 Dose: 1,400 units/hr, 28 mls/hr Documented by: Methylprednisolone 40 mg/ (Syringe) 0.64 mls @ 1.5 mls/min IV Q8H [facility] Stop: 12/09/18 09:59 Last Admin: 11/09/18 10:11 Dose: 1.5 mls/min Documented by: Ipratropium [place] (Atrovent 0.02% 0.5mg/2.5ml) 0.5 mg INH Q6R [facility] Stop: 12/09/18 13:59 Levalbuterol HCl (Xopenex 0.63 Mg/3 Ml Neb) 0.63 mg NEB Q6R [facility] Stop: 12/09/18 13:59 Lorazepam (Ativan) 0.5 mg PO TID PRN PRN Reason: Anxiety Stop: 12/08/18 15:58 Last Admin: 11/09/18 08:15 Dose: 0.5 mg Documented by:
[2018-11-09] MEDS ORDERED: XOPENEX/ATROVENT 0.63mg/0.5MG NEB COMBO NEB PRN (13:12)
[2018-11-09] MEDS ORDERED: METOPROLOL TARTRATE 1 MG/ML VIAL IV STA ×3 (13:40→14:13)
[2018-11-09] MEDS ORDERED: FUROSEMIDE 40 MG in SYRINGE 0 ML IV ONE (13:40)
[2018-11-09] MEDS ORDERED: METOPROLOL TARTRATE 1 MG/ML VIAL IV ONE (13:41)
[2018-11-09] MEDS ORDERED: LEVALBUTEROL HCL 0.63 MG/3 ML NEB NEB SCH (14:00)
[2018-11-09] MEDS ORDERED: IPRATROPIUM BROMIDE NEB SOLN 0.02% 2.5 ML VIAL INH SCH (14:00)
[2018-11-09] MEDS ORDERED: POTASSIUM CHLORIDE 10 MEQ TABCR PO STA (14:14)
--- NOTE | 2018-11-09 15:23 | Anesthesiology Consultation ---
Date of Service November 09, 2018 Assessment & Plan (1) Encounter for pre-operative examination: Chart Review Chart Review: Acceptable Risk for Surgery Consults Requested medical & cardiac Pulmonary ASA ASA4 Proposed Anesthesia Anesthesia Type: MAC Risk / Benefits Reviewed With: PT / POA / Parent / Guardian, Accepts Plan and Informed Consent Obtained NPO Date Last Intake of Fluids: 11/09/18 Time Last Intake of Fluids: 07:30 Date Last Intake of Solids: 11/09/18 Time Last Intake of Solids: 07:30 History Height/Weight Height: 5 ft 2 in Weight: 120.4 kg Allergies Allergy/AdvReac Type Severity Reaction Status Date / Time rivaroxaban Allergy Unknown RASH Unverified 05/27/16 07:10 adhesive AdvReac Mild TAPE - Verified 05/27/16 07:10 TEARS SKIN Medications Home Medications Medication Instructions Recorded Confirmed Last Taken albuterol sulfate 2 puff INHALATION QID PRN 11/08/18 11/08/18 Unknown aspirin 81 mg PO DAILY 11/08/18 11/08/18 Unknown cyanocobalamin (vitamin B-12) 1,000 mcg PO DAILY 11/08/18 11/08/18 Unknown [Vitamin B-12] dabigatran etexilate [Pradaxa] 150 mg PO BID 11/08/18 11/08/18 11/06/18 fluticasone [Flovent HFA] 2 inh INHALATION BID 11/08/18 11/08/18 11/06/18 furosemide 40 mg PO DAILY 11/08/18 11/08/18 11/06/18 garlic 1,000 mg PO DAILY 11/08/18 11/08/18 Unknown lorazepam 0.5 mg PO TID PRN 11/08/18 11/08/18 Unknown melatonin 10 mg PO HS PRN 11/08/18 11/08/18 Unknown metoprolol tartrate 100 mg PO TID 11/08/18 11/08/18 11/06/18 nystatin 100,000 11/08/18 11/06/18 omega [id number] oil [Fish Oil] 1 cap PO DAILY 11/08/18 11/08/18 Unknown potassium chloride [Klor-Con 10] 10 meq PO DAILY 11/08/18 11/08/18 11/06/18 triamcinolone acetonide 0.1 % TOPICAL BID 11/08/18 11/08/18 11/06/18 Active Medications Generic Name Dose Route Start Last Admin Trade Name Freq PRN Reason Stop Dose Admin Fluticasone Propionate 2 puffs 11/08/18 21:00 11/09/18 08:16 Flovent Hfa 44mcg INH 12/08/18 20:59 2 puffs BID EWA Administration Diltiazem HCl 125 mg/ Dextrose 125 mls @ 0 mls/hr 11/08/18 14:45 11/09/18 13:50 IV 12/08/18 14:44 0 mg/hr .Q0M EWA 0 mls/hr Titration Protocol 0 MG/HR Amiodarone HCl/Dextrose 360 mg in 200 mls @ 16.667 mls/hr 11/08/18 22:30 11/09/18 11:09 Nexterone / D5w IV 12/08/18 22:29 0.5 mg/min .Q12H EWA 16.7 mls/hr Administration 0.5 MG/MIN Furosemide 20 mg/ Syringe 2 mls @ 4 mls/min 11/08/18 16:30 11/09/18 08:17 IV 12/08/18 16:29 4 mls/min BID EWA Administration Doxycycline Hyclate 100 mg/ 110 mls @ 50 mls/hr 11/08/18 21:00 11/09/18 10:50 Dextrose IV 11/15/18 20:59 Infused BID EWA Infusion Heparin Sodium/Dextrose 25,000 units in 500 mls @ 28 mls/hr 11/08/18 16:15 11/09/18 11:08 Heparin Sodium/Dextrose IV 12/08/18 16:14 1,400 units/hr .[id number] EWA 28 mls/hr Administration Protocol 1,400 UNITS/HR Methylprednisolone 40 mg/ 0.64 mls @ 1.5 mls/min 11/09/18 10:00 11/09/18 10:11 Syringe IV 12/09/18 09:59 1.5 mls/min Q8H EWA Administration Lorazepam 0.5 mg 11/08/18 15:59 11/09/18 08:15 Ativan PO 12/08/18 15:58 0.5 mg TID PRN Administration Anxiety Past Medical History Medical History CHF (congestive heart failure) (Chronic) LVH (left ventricular hypertrophy) (Chronic) Diastolic dysfunction (Chronic) GERD (gastroesophageal reflux disease) (Chronic) Osteoarthritis (Chronic) Obesity (Chronic) Asthma (Chronic) Atrial fibrillation (Chronic) Dyslipidemia (Chronic) HTN (hypertension) (Chronic) Spinal stenosis at L4-L5 level (Chronic) Past Family History Family History Other AAA (abdominal aortic aneurysm) Coronary heart disease Hypertension Thyroid disease Past Surgical History Surgical History History of spinal fusion (Chronic) L4-L5 Hx of tonsillectomy (Chronic) History of appendectomy (Chronic) History of arthroplasty of knee (Chronic) History of carpal tunnel surgery (Chronic) Past Anesthesia History No Hx of Anesthesia Complications and No Family Hx of Anesthesia Complications History of PONV No Motion Sickness Screening History of Motion Sickness: No Social History Smoking Status: Never smoker Hx Alcohol Use: No Hx Substance Use: No substance use type: does not use Exercise / Class Metabolic Activity III < 4 Walking/Shop/Light housework Physical Exam Vital Signs Last Vital Signs Temp 98.2 F 11/09/18 12:30 Pulse 119 H 11/09/18 14:47 Resp 30 H 11/09/18 14:31 BP 145/90 H 11/09/18 14:47 Pulse Ox 95 11/09/18 14:31 ENMT Mouth: no dentition abnormality Thyromental Distance: > or= 3.5 Finger Breadths Mallampati Class: II Neck normal visual inspection Respiratory normal respiratory effort, + respiratory distress and + tachypneic Cardiovascular Rate/Rhythm: + tachycardic; + abnormal rate and + abnormal rhythm Testing Electrocardiogram Date: 11/09/18 Atrial fibrillation with rapid ventricular response ST & T wave abnormality, consider inferolateral ischemia Rate 125 bpm Chest X-Ray Date: 11/08/18 Cardiomegaly and elevation of the interstitium, likely secondary to congestive failure/fluid overload. No evidence of lobar consolidation Laboratory Results 11/09/18 03:41 11/09/18 03:41 PT 11.0 Seconds (9.0-12.0) 11/08/18 15:23 INR 1.1 (0.9-1.1) 11/08/18 15:23 APTT 58.4 Seconds (21.0-31.0) H* 11/09/18 03:41
--- NOTE | 2018-11-09 15:45 | Cardioversion ---
Date of Service November 09, 2018 Electrical Cardioversion Rpt Electrical Cardioversion Report The patient was evaluated in her room in ICU, connected to the recording apparatus including electrocardiographic monitoring, noninvasive blood pressure monitoring and pulse oximetry. Anteroposterior patch electrodes were placed. The patient was anesthetized by the anesthesia department. Once adequate anesthesia was obtained a synchronized biphasic shock was delivered using 200 J with conversion to a sinus rhythm.
[2018-11-09] MEDS ORDERED: LIDOCAINE HCL 2% 2 ML VIAL/AMP(20MG/ML) INFIL ONE (15:52)
[2018-11-09] MEDS ORDERED: PROPOFOL IV EMULSION 10 MG/ML 20 ML VIAL IV ONE (15:52)
--- NOTE | 2018-11-09 15:55 | Anesthesiology Progress Note ---
Date of Service November 09, 2018 Anesthesia Post Procedure Vital Signs Vital Signs: Temp Pulse Pulse Resp BP BP Pulse Ox 11/09/18 14:47 119 H 145/90 H 11/09/18 14:46 145 H 140/95 11/09/18 14:31 112 H 30 H 148/93 H 95 11/09/18 14:30 108 H 32 H 93 11/09/18 14:16 115 H 29 H 122/90 95 11/09/18 14:00 102 H 32 H 145/95 H 92 11/09/18 13:54 154 H 141/103 H 11/09/18 13:45 156 H 36 H 93 11/09/18 13:30 150 H 35 H 141/103 H 89 L 11/09/18 13:00 164 H 37 H 130/90 89 L 11/09/18 12:31 160 H 35 H 131/78 92 11/09/18 12:30 98.2 F 160 H 163 H 32 H 131/78 92 11/09/18 11:43 98.6 F 143 H 33 H 104/85 92 11/09/18 11:36 164 H 11/09/18 10:00 127 H 24 93 11/09/18 09:59 154 H 11/09/18 08:46 119 H 11/09/18 07:35 99.7 F H 127 H 33 H 99/79 L 93 11/09/18 03:08 98.2 F 117 H 24 91/60 L 93 11/09/18 00:11 99.3 F 105 H 22 98/72 L 94 11/08/18 21:55 120 H 26 H 98/69 L 93 11/08/18 20:00 87 11/08/18 19:13 119 H 20 96 11/08/18 18:54 115 H 28 H 108/82 93 Notes Mental Status: alert / awake / arousable and participated in evaluation Patient Amnestic to Procedure: Yes Nausea / Vomiting: adequately controlled Pain: adequately controlled Airway Patency, RR, SpO2: stable & adequate BP & HR: stable & adequate Hydration State: stable & adequate Anesthetic Complications: no major complications apparent and Pt Satisfied with anesthetic care
[2018-11-09] MEDS: POTASSIUM ACETATE 10 MEQ in 0.9 % SODIUM CHLORIDE 100 ML IV SCH ×2 (16:30→17:36)
[2018-11-09] MEDS: MAGNESIUM OXIDE 400 MG TAB PO SCH ×2 (16:30→19:48)
[2018-11-10] MEDS: methylPREDNISolone 40 MG in SYRINGE 0 ML IV SCH ×2 (01:17→19:51)
[2018-11-10 04:57] LABS: Hematocrit (blood only) 41.8 % (37-47); Hemoglobin 13.5 g/dL (12.0-16.0); Mean Corpuscular Hgb Conc 32.3 g/dL (32-36); Mean Corpuscular Volume 88.6 fL (80-100); Platelet Count 157 K/uL (130-400); RDW Coefficient of Variation 16.3 % (11.5-14.5); RDW Standard Deviation 53.6 fL (36.4-46.3); Red Blood Count 4.72 M/uL (4.2-5.4); White Blood Count 9.98 K/uL (4.8-10.8)
[2018-11-10 05:15] LABS: BUN Creatinine Ratio 28.6 (10-20); Calcium 8.5 mg/dl (8.5-10.1); Creatinine Clr Calc Pharmacy 62.9 ml/min; Est GFR (Non-African American) 60.4
[2018-11-10 05:27] LABS: Partial Thromboplastin Time 54.7 Seconds (21.0-31.0)
[2018-11-10] MEDS: HEPARIN STANDARD DEXTROSE 25,000 UNITS/500 ML IV SCH ×2 (06:31→23:09)
[2018-11-10] MEDS: LEVALBUTEROL HCL 0.63 MG/3 ML NEB NEB PRN (06:34)
[2018-11-10] MEDS: IPRATROPIUM BROMIDE NEB SOLN 0.02% 2.5 ML VIAL INH PRN (06:35)
--- NOTE | 2018-11-10 06:49 | Critical Care Progress Note ---
Date of Service November 10, 2018 Assessment & Plan (1) Atrial fibrillation with RVR: Reason Critically Ill: 77-year-old female admitted with A. fib RVR and respiratory failure, unable to control rate with amnio drip, diltiazem drip, and digoxin. Will likely need cardioversion this afternoon. Neuro CAM ICU: Negative Cardiac A. fib RVR/CHFA. fib rate of 170s on monitor, history of paradoxical A. fib, likely has been in A. 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 -Patient clears with cough -Continue Xopenex as needed -Continue aggressive diuresis -Increased expiratory positive pressure to 12 GI GERDcontinue PPI RENAL/LYTES Optimize electrolytes of potassium greater than 4.5 given 40 M EQ K-Dur twice daily today Voiding no issues ENDO ICU hyperglycemic protocol -40 mg prednisone daily HEME H&H stable, routine CBCs ID No indication for infectious process at this time LINES/IV ACCESS Peripheral IVs DVT PROPHYLAXIS SCDs, heparin drip PT OT:encourage ambulation/out of bed to chair Patient is improved and stable for downgrade out of ICU to telemetry status (2) CHF (congestive heart failure): (3) Asthma: (4) SOB (shortness of breath): Subjective Ms. Frank is a 77-year-old female past medical history of PAF who was a transfer from [facility] for A. fib RVR, shortness of breath, wheezing. She was found to be positive RSV per PCR at [place]. On arrival to [facility] heart rate was in 150s. She was given 2.5 mg metoprolol IV, amiodarone bolus and drip, diltiazem bolus and drip, and started on digoxin this yesterday morning. Initial chest x-ray yesterday showed signs of pulmonary edema and she was started on Lasix. Heart rate continued to persist in 160s-170s in A. fib RVR. Patient had become increasingly SOB yesterday morniing and she was transferred to ICU. Cardiology cardioverted yesterday afternoon. Patient SR-ST w/ PACs since. PAtient started on CPAP and diuresis increased. Arturo is still SOB but claims it has significantly improved from yesterday. She is also less tachypneic and appears more comfortable. She does report a nonproductive cough this morning and lungs sound coarse. Repeating chest x-ray. Patient denies silverio st pain, dizziness, lightheadedness, palpitations, drowsiness. Patient will remain in ICU for now for management of A. fib RVR and CHF/respiratory failure. Review of Systems All systems reviewed & are unremarkable except as noted in HPI & below Physical Exam Vital Signs (Past 24 Hours): Last Vital Signs Temp 37 C 11/10/18 06:00 Pulse 98 H 11/10/18 06:35 Resp 22 11/10/18 06:35 BP 139/87 11/10/18 06:00 Pulse Ox 95 11/10/18 06:35 Constitutional: WD/WN, vitals as above + obese Eyes: PERRL, conjunctivae normal, anicteric sclerae Neck: trachea midline, no thyromegaly Respiratory: Tachypnea, short shallow breathing, coarse crackles auscultated in all lobes bilaterally, nonproductive cough Cardiovascular: Irregular sinus tachycardia on monitor, S4 murmur auscultated, good peripheral perfusion, no tactile fremitus Gastrointestinal (Abdomen): Abdomen obese, nontender, bowel sounds auscultated in all 4 quadrants Neurologic: Alert and oriented x3, PERRLA, symmetrical movement and strength bilaterally Results & Data Laboratory Results Laboratory Results - last 24 hr 11/09/18 11/09/18 11/09/18 11:33 12:30 16:20 WBC RBC Hgb Hct MCV MCH MCHC RDW Std Deviation RDW Coeff of Allen Plt Count MPV APTT PTT Ratio ABG pH 7.47 H ABG pCO2 40 ABG pO2 61 L ABG HCO3 28 H ABG O2 Saturation 92.3 ABG Base Excess 4.2 H Abbe Test POS Barometric Pressure 732.6 Oxygen Given 3L Sodium Potassium Chloride Carbon Dioxide Anion Gap BUN Creatinine Est Cr Clr Drug Dosing Est GFR ( Amer) Est GFR (Non-Af Amer) BUN/Creatinine Ratio Glucose POC Glucose 175 H Calcium Nasal Screen MRSA (PCR) Negative Digoxin 11/10/18 11/10/1819 04:21 04:21 04:21 WBC 9.98 RBC 4.72 Hgb 13.5 Hct 41.8 MCV 88.6 MCH 28.6 MCHC 32.3 RDW Std Deviation 53.6 H RDW Coeff of Allen 16.3 H Plt Count 157 MPV 10.0 APTT 54.7 H* PTT Ratio 2.0 ABG pH ABG pCO2 ABG pO2 ABG HCO3 ABG O2 Saturation ABG Base Excess Abbe Test Barometric Pressure Oxygen Given Sodium 139 Potassium 4.0 Chloride 102 Carbon Dioxide 33 H Anion Gap 4.0 BUN 26 H Creatinine 0.91 Est Cr Clr Drug Dosing 62.9 Est GFR ( Amer) 70.0 Est GFR (Non-Af Amer) 60.4 BUN/Creatinine Ratio 28.6 H Glucose 154 H POC Glucose Calcium 8.5 Nasal Screen MRSA (PCR) Digoxin 11/10/18 04:21 WBC RBC Hgb Hct MCV MCH MCHC RDW Std Deviation RDW Coeff of Allen Plt Count MPV APTT PTT Ratio ABG pH ABG pCO2 ABG pO2 ABG HCO3 ABG O2 Saturation ABG Base Excess Abbe Test Barometric Pressure Oxygen Given Sodium Potassium Chloride Carbon Dioxide Anion Gap BUN Creatinine Est Cr Clr Drug Dosing Est GFR ( Amer) Est GFR (Non-Af Amer) BUN/Creatinine Ratio Glucose POC Glucose Calcium Nasal Screen MRSA (PCR) Digoxin 1.1 Medications Administered Home Medications albuterol sulfate 2 puff INHALATION QID PRN 11/08/18 [History Confirmed 11/08/18] aspirin 81 mg PO DAILY 11/08/18 [History Confirmed 11/08/18] cyanocobalamin (vitamin B-12) [Vitamin B-12] 1,000 mcg PO DAILY 11/08/18 [History Confirmed 11/08/18] dabigatran etexilate [Pradaxa] 150 mg PO BID 11/08/18 [History Confirmed 11/08/18] fluticasone [Flovent HFA] 2 inh INHALATION BID 11/08/18 [History Confirmed 11/08/18] furosemide 40 mg PO DAILY 11/08/18 [History Confirmed 11/08/18] garlic 1,000 mg PO DAILY 11/08/18 [History Confirmed 11/08/18] lorazepam 0.5 mg PO TID PRN 11/08/18 [History Confirmed 11/08/18] melatonin 10 mg PO HS PRN 11/08/18 [History Confirmed 11/08/18] metoprolol tartrate 100 mg PO TID 11/08/18 [History Confirmed 11/08/18] nystatin 100,000 11/08/18 [History] omega 2-lcb-noq-fish oil [Fish Oil] 1 cap PO DAILY 11/08/18 [History Confirmed 11/08/18] potassium chloride [Klor-Con 10] 10 meq PO DAILY 11/08/18 [History Confirmed 11/08/18] triamcinolone acetonide 0.1 % TOPICAL BID 11/08/18 [History Confirmed 11/08/18] Active Medications Acetaminophen (Tylenol) 650 mg PO Q4H PRN PRN Reason: Pain or Fever Stop: 12/08/18 14:29 Fluticasone Propionate (Flovent Hfa 44mcg) 2 puffs INH BID [facility] Stop: 12/08/18 20:59 Last Admin: 11/10/18 08:01 Dose: 2 puffs Documented by: Amiodarone HCl/Dextrose (Nexterone / D5w) 360 mg in 200 mls @ 16.667 mls/hr IV .Q12H [facility] Stop: 12/08/18 22:29 Last Admin: 11/10/18 09:40 Dose: 0.5 mg/min, 16.7 mls/hr Documented by: Furosemide 20 mg/ Syringe 2 mls @ 4 mls/min IV BID [facility] Stop: 12/08/18 16:29 Last Admin: 11/10/18 08:00 Dose: 4 mls/min Documented by: Doxycycline Hyclate 100 mg/ (Dextrose) 110 mls @ 50 mls/hr IV BID [facility] Stop: 11/15/18 20:59 Last Admin: 11/10/18 08:00 Dose: 50 mls/hr Documented by: Heparin Sodium/Dextrose (Heparin Sodium/Dextrose) 25,000 units in 500 mls @ 28 mls/hr IV .[id number] [facility]; Protocol Stop: 12/08/18 16:14 Last Titration: 11/10/18 07:02 Dose: 1,400 units/hr, 28 mls/hr Documented by: Ipratropium [place] (Atrovent 0.02% 0.5mg/2.5ml) 0.5 mg INH Q6R PRN PRN Reason: Shortness Of Breath Or Wheezing Stop: 12/09/18 13:14 Last Admin: 11/10/18 06:35 Dose: 0.5 mg Documented by: Levalbuterol HCl (Xopenex 0.63 Mg/3 Ml Neb) 0.63 mg NEB Q6R PRN PRN Reason: Shortness Of Breath Or Wheezin Stop: 12/09/18 13:14 Last Admin: 11/10/18 06:34 Dose: 0.63 mg Documented by: Lorazepam (Ativan) 0.5 mg PO TID PRN PRN Reason: Anxiety Stop: 12/08/18 15:58 Last Admin: 11/09/18 08:15 Dose: 0.5 mg Documented by: Magnesium Oxide (Mag-Ox) 400 mg PO QPM [facility] Stop: 12/09/18 14:44 Last Admin: 11/09/18 19:48 Dose: 400 mg Documented by: Pantoprazole Sodium (Protonix) 40 mg PO QAM [facility] Stop: 12/10/18 08:59 Last Admin: 11/10/18 08:00 Dose: 40 mg Documented by: Potassium Chloride (Klor-Con M20) 40 meq PO BID EWA Stop: 11/10/18 21:01 Last Admin: 11/10/18 09:40 Dose: 40 meq Documented by:
--- NOTE | 2018-11-10 07:29 | Hospitalist Progress Note ---
Date of Service November 10, 2018 Assessment & Plan (1) Acute and chronic respiratory failure with hypoxia: Improved after BIPAP and ICU treatment. (2) Acute diastolic heart failure: Cont diuresis with IV Lasix. Monitor daily standing weights. Low sodium diet. (3) Acute asthma exacerbation: Multifactorial 2/2 asthma exacerbation 2/2 RSV infection in addition to fluid overload on CHF poss 2/2 diastolic heart failure exacerbation. She is s/p DCCV yesterday and maintains in sinus rhythm. Cont Doxy, Nebs and convert prednisone back to IV steroids with worsening SOB and wheezing on exam. (4) Atrial fibrillation with RVR: h/o PAF. DCCV to sinus rhythm. Change heparin drip to Pradaxa in setting of stunned myocardium when OK with Cardiology. She was on Pradaxa at baseline prior to this for elevated CHADs score. Continues on amiodarone and Metoprolol 100mg TID (5) RSV (acute bronchiolitis due to respiratory syncytial virus): Cont supportive care. (6) DVT prophylaxis: Heparin drip Full Dispo-to telemetry Shana Aponte DO [facility] Hospitalist Subjective Increasing shortness of breath just this afternoon. Patient was notably switched from Solu-Medrol IV to prednisone 40 p.o. daily this morning. She feels better today after cardioversion yesterday. She maintains in sinus rhythm. She is on a heparin drip and we discussed possibly switching her to Pradaxa but will defer to cardiology. She is tolerating p.o. and doing well overall. She does report some coughing that is nonproductive. Physical Exam Vital Signs (Past 24 Hours): Last Vital Signs Temp 37 C 11/10/18 06:00 Pulse 98 H 11/10/18 06:35 Resp 22 11/10/18 06:35 BP 139/87 11/10/18 06:00 Pulse Ox 95 11/10/18 06:35 CONSTITUTIONAL: WNWD, vitals as above, in acute respiratory distress EYES: normal conjuctivae, no scleral icterus ENT: MMM RESPIRATORY: diffuse wheezing throughout all lung richter. Rhonchi have resolved and tachypnea has resolved. No conversational dyspnea. Still requiring oxygen supplementation via nasal canula. CARDIOVASCULAR: reg rate and rhythm, S1 and 2 heard. GASTROINTESTINAL: normal bowel sounds, soft, nontender, nondistended MUSCULOSKELETAL: strength 5/5 throughout, head is normocephalic and atraumatic SKIN: warm and dry NEUROLOGIC: CN 2-12 grossly intact, normal cognition, no gross focal deficits. PSYCHIATRIC: alert cooperative and oriented to person, place and time. Results & Data Laboratory Results Short CBC 11/10/18 Range/Units 04:21 WBC 9.98 (4.8-10.8) K/uL Hgb 13.5 (12.0-16.0) g/dL Hct 41.8 (37-47) % Plt Count 157 (130-400) K/uL BMP 11/10/18 04:21 Sodium 139 Potassium 4.0 Chloride 102 Carbon Dioxide 33 H BUN 26 H Creatinine 0.91 Glucose 154 H Calcium 8.5 Medications Administered Current Inpatient Medications Acetaminophen (Tylenol) 650 mg PO Q4H PRN PRN Reason: Pain or Fever Stop: 12/08/18 14:29 Fluticasone Propionate (Flovent Hfa 44mcg) 2 puffs INH BID [facility] Stop: 12/08/18 20:59 Last Admin: 11/10/18 08:01 Dose: 2 puffs Documented by: Amiodarone HCl/Dextrose (Nexterone / D5w) 360 mg in 200 mls @ 16.667 mls/hr IV .Q12H EWA Stop: 12/08/18 22:29 Last Admin: 11/10/18 09:40 Dose: 0.5 mg/min, 16.7 mls/hr Documented by: Furosemide 20 mg/ Syringe 2 mls @ 4 mls/min IV BID EWA Stop: 12/08/18 16:29 Last Admin: 11/10/18 08:00 Dose: 4 mls/min Documented by: Heparin Sodium/Dextrose (Heparin Sodium/Dextrose) 25,000 units in 500 mls @ 28 mls/hr IV .[id number] [facility]; Protocol Stop: 12/08/18 16:14 Last Titration: 11/10/18 07:02 Dose: 1,400 units/hr, 28 mls/hr Documented by: Ipratropium [place] (Atrovent 0.02% 0.5mg/2.5ml) 0.5 mg INH Q6R PRN PRN Reason: Shortness Of Breath Or Wheezing Stop: 12/09/18 13:14 Last Admin: 11/10/18 06:35 Dose: 0.5 mg Documented by: Levalbuterol HCl (Xopenex 0.63 Mg/3 Ml Neb) 0.63 mg NEB Q6R PRN PRN Reason: Shortness Of Breath Or Wheezin Stop: 12/09/18 13:14 Last Admin: 11/10/18 06:34 Dose: 0.63 mg Documented by: Lorazepam (Ativan) 0.5 mg PO TID PRN PRN Reason: Anxiety Stop: 12/08/18 15:58 Last Admin: 11/09/18 08:15 Dose: 0.5 mg Documented by: Magnesium Oxide (Mag-Ox) 400 mg PO QPM [facility] Stop: 12/09/18 14:44 Last Admin: 11/09/18 19:48 Dose: 400 mg Documented by: Metoprolol Tartrate (Lopressor) 100 mg PO TID [facility] Stop: 12/10/18 13:59 Pantoprazole Sodium (Protonix) 40 mg PO QAM [facility] Stop: 12/10/18 08:59 Last Admin: 11/10/18 08:00 Dose: 40 mg Documented by: Potassium Chloride (Klor-Con M20) 40 meq PO BID [facility] Stop: 11/10/18 21:01 Last Admin: 11/10/18 09:40 Dose: 40 meq Documented by: Prednisone (Prednisone) 40 mg PO DAILY [facility] Stop: 12/10/18 10:14 Last Admin: 11/10/18 11:10 Dose: 40 mg Documented by:
[2018-11-10] MEDS: FUROSEMIDE 20 MG in SYRINGE 0 ML IV SCH ×2 (08:00→21:20)
[2018-11-10] MEDS: DOXYCYCLINE HYCLATE 100 MG in DEXTROSE 5% 100 ML IV SCH (08:00)
[2018-11-10] MEDS: PANTOprazole 40 MG TAB PO SCH (08:00)
[2018-11-10] MEDS: FLUTICASONE PROP HFA INH 44 MCG INHALER INH SCH ×2 (08:01→21:22)
--- NOTE | 2018-11-10 09:17 | Cardiology Progress Note ---
Date of Service November 10, 2018 Assessment & Plan (1) Atrial fibrillation: The patient remains in sinus rhythm following her cardioversion yesterday. She is tolerating intravenous amiodarone without difficulty. Her beta-blockers will be restarted today. (2) CHF (congestive heart failure): The patient is diuresing on intravenous furosemide. She still demonstrates significant hypervolemia. (3) LVH (left ventricular hypertrophy): Echocardiogram performed in May 2018 noted normal left ventricular systolic function and moderate LVH. There was a dynamic mid ventricular outflow obstruction varying between 10 and 50 mmHg. (4) Anticoagulant long-term use: Currently on intravenous heparin. She typically takes Pradaxa as her long-term anticoagulation in the outpatient setting. Subjective The patient is resting in bed without complaints of chest pain. Her dyspnea is still present, however, improved. She denies palpitations. Physical Exam Vital Signs (Past 24 Hours): Last Vital Signs Temp 36.7 C 11/10/18 08:00 Pulse 103 H 11/10/18 08:00 Resp 26 H 11/10/18 08:00 BP 148/93 H 11/10/18 08:00 Pulse Ox 90 11/10/18 08:00 Physical Exam: In general is a well-developed well-nourished white female in no acute distress. HEENT exam is negative. Neck is supple with full carotid upstrokes. No obvious bruits. Jugular is pressure is difficult to assess. Cardiovascular exam reveals a regular rhythm with a normal S1-S2. No obvious murmurs. Lungs note coarse breath sounds and expiratory wheezes throughout. Abdomen is obese without bruits. Extremities reveal intact radial artery pulses bilaterally. No peripheral edema. Results & Data Laboratory Results Laboratory Results - last 24 hr 11/09/18 11/09/18 11/09/18 11:33 12:30 16:20 WBC RBC Hgb Hct MCV MCH MCHC RDW Std Deviation RDW Coeff of Allen Plt Count MPV APTT PTT Ratio ABG pH 7.47 H ABG pCO2 40 ABG pO2 61 L ABG HCO3 28 H ABG O2 Saturation 92.3 ABG Base Excess 4.2 H Abbe Test POS Barometric Pressure 732.6 Oxygen Given 3L Sodium Potassium Chloride Carbon Dioxide Anion Gap BUN Creatinine Est Cr Clr Drug Dosing Est GFR ( Amer) Est GFR (Non-Af Amer) BUN/Creatinine Ratio Glucose POC Glucose 175 H Calcium Nasal Screen MRSA (PCR) Negative Digoxin 11/10/18 11/10/18 11/10/18 04:21 04:21 04:21 WBC 9.98 RBC 4.72 Hgb 13.5 Hct 41.8 MCV 88.6 MCH 28.6 MCHC 32.3 RDW Std Deviation 53.6 H RDW Coeff of Allen 16.3 H Plt Count 157 MPV 10.0 APTT 54.7 H* PTT Ratio 2.0 ABG pH ABG pCO2 ABG pO2 ABG HCO3 ABG O2 Saturation ABG Base Excess Abbe Test Barometric Pressure Oxygen Given Sodium 139 Potassium 4.0 Chloride 102 Carbon Dioxide 33 H Anion Gap 4.0 BUN 26 H Creatinine 0.91 Est Cr Clr Drug Dosing 62.9 Est GFR ( Amer) 70.0 Est GFR (Non-Af Amer) 60.4 BUN/Creatinine Ratio 28.6 H Glucose 154 H POC Glucose Calcium 8.5 Nasal Screen MRSA (PCR) Digoxin 11/10/18 04:21 WBC RBC Hgb Hct MCV MCH MCHC RDW Std Deviation RDW Coeff of Allen Plt Count MPV APTT PTT Ratio ABG pH ABG pCO2 ABG pO2 ABG HCO3 ABG O2 Saturation ABG Base Excess Abbe Test Barometric Pressure Oxygen Given Sodium Potassium Chloride Carbon Dioxide Anion Gap BUN Creatinine Est Cr Clr Drug Dosing Est GFR ( Amer) Est GFR (Non-Af Amer) BUN/Creatinine Ratio Glucose POC Glucose Calcium Nasal Screen MRSA (PCR) Digoxin 1.1 Diagnostic Findings athletic monitor notes sinus rhythm.
--- NOTE | 2018-11-10 09:35 | XRay Report ---
XR chest 1V portable HISTORY: Shortness of breath. pulmonary edema COMPARISON: Chest 11/08/2018. FINDINGS: Right midlung zone linear density has improved. This favors resolving atelectasis. Cardiome hillary and mild interstitial pulmonary edema persists. The central pulmonary arteries remain enlarged c onsistent with pulmonary arterial hypertension. No new focal lung consolidations to suggest pneumonia . No pleural effusions. No pneumothorax. IMPRESSION: No change in the cardiomegaly and mild interstitial pulmonary edema. Electronically signed by: Barry Lechuga M.D. 11/10/2018 9:34 AM
[2018-11-10] MEDS ORDERED: PERFLUTREN LIPID MICROSPHERE (DEFINITY) IV ONE (09:40)
[2018-11-10] MEDS: AMIODARONE / D5W 360 MG/200 ML BAG IV SCH ×2 (09:40→21:27)
[2018-11-10] MEDS: POTASSIUM CHLORIDE 20 MEQ TABCR PO SCH ×2 (09:40→21:21)
[2018-11-10] MEDS ORDERED: FUROSEMIDE 20 MG in SYRINGE 0 ML IV ONE (10:15)
[2018-11-10] MEDS ORDERED: predniSONE 20 MG TAB PO SCH (10:15)
[2018-11-10] MEDS ORDERED: FUROSEMIDE 40 MG in SYRINGE 0 ML IV ONE (13:30)
[2018-11-10] MEDS: METOPROLOL TARTRATE 100 MG TAB PO SCH ×2 (14:06→21:20)
[2018-11-10] MEDS: MAGNESIUM OXIDE 400 MG TAB PO SCH (21:21)
[2018-11-10] MEDS: DOXYCYCLINE HYCLATE 100 MG CAP PO SCH (21:22)
[2018-11-11] MEDS: methylPREDNISolone 40 MG in SYRINGE 0 ML IV SCH ×4 (04:47→23:48)
[2018-11-11] MEDS: IPRATROPIUM BROMIDE NEB SOLN 0.02% 2.5 ML VIAL INH PRN (04:51)
[2018-11-11] MEDS: LEVALBUTEROL HCL 0.63 MG/3 ML NEB NEB PRN (04:51)
[2018-11-11 06:30] LABS: Hematocrit (blood only) 42.9 % (37-47); Hemoglobin 13.7 g/dL (12.0-16.0); Mean Corpuscular Hgb Conc 31.9 g/dL (32-36); Mean Platelet Volume 9.8 fL (7.4-10.4); Platelet Count 161 K/uL (130-400); RDW Coefficient of Variation 16.3 % (11.5-14.5); Red Blood Count 4.82 M/uL (4.2-5.4); White Blood Count 12.06 K/uL (4.8-10.8)
[2018-11-11 07:02] LABS: Calcium 8.4 mg/dl (8.5-10.1); Creatinine Clr Calc Pharmacy 61.8 ml/min; Est GFR (Non-African American) 60.4; Magnesium 2.4 mg/dl (1.8-2.4); Potassium 4.2 mmol/L (3.5-5.1)
[2018-11-11 07:26] LABS: Partial Thromboplastin Ratio 1.8
[2018-11-11] MEDS: AMIODARONE / D5W 360 MG/200 ML BAG IV SCH ×2 (07:47→19:48)
[2018-11-11 07:48] LABS: Partial Thromboplastin Time 48.9 Seconds (21.0-31.0)
[2018-11-11] MEDS: METOPROLOL TARTRATE 100 MG TAB PO SCH ×3 (07:48→19:50)
[2018-11-11] MEDS: DOXYCYCLINE HYCLATE 100 MG CAP PO SCH ×2 (07:48→19:53)
[2018-11-11] MEDS: FLUTICASONE PROP HFA INH 44 MCG INHALER INH SCH ×2 (07:49→19:51)
[2018-11-11] MEDS: PANTOprazole 40 MG TAB PO SCH (07:49)
[2018-11-11] MEDS: FUROSEMIDE 20 MG in SYRINGE 0 ML IV SCH ×2 (09:17→19:53)
--- NOTE | 2018-11-11 16:43 | Hospitalist Progress Note ---
Date of Service November 11, 2018 Assessment & Plan (1) Acute respiratory failure: Resolved after ICU treatments including BIPAP and continued support for asthma exacerbation as below. (2) Acute diastolic heart failure: Cont diuresis with IV Lasix. Monitor daily standing weights which are not currently being tracked-new order was placed to perform this daily in the morning. Low sodium diet. May need more aggressive diuresis to help with persistent hypoxia. Appreciate Cardiology recs. (3) Acute asthma exacerbation: Multifactorial 2/2 asthma exacerbation 2/2 RSV infection in addition to fluid overload on CHF poss 2/2 diastolic heart failure exacerbation. She is s/p DCCV on 11/09 and remains in sinus rhythm. Nebs were made PRN but she hasn't been asking for them despite continued wheezing. Ordered them as scheduled. Cont doxy and increased Solumedrol 40mg to q6hrs. Robitussin AC given for treatment of cough. (4) Atrial fibrillation with RVR: h/o PAF. DCCV to sinus rhythm. Will switch back to Pradaxa this evening. Continues on amiodarone and Metoprolol 100mg TID, however, with the overlap of the added amio PO and amio drip I am concerned for bradycardia. Will hold the BB for now and reassess in am. (5) RSV (acute bronchiolitis due to respiratory syncytial virus): Cont supportive care. (6) DVT prophylaxis: Pradaxa Full Dispo-cont tele monitoring. Shana Aponte DO [facility] Hospitalist Subjective Breathing is stable but is about the same as yesterday. She still reports a cough that is ongoing and nonproductive. He has not been ambulating that much secondary to some weakness that is generalized. She is tolerating p.o. She otherwise denies chest pain, fever or other issue at this time. Physical Exam Vital Signs (Past 24 Hours): Last Vital Signs Temp 37.1 C 11/11/18 15:38 Pulse 59 L 11/11/18 15:38 Resp 18 11/11/18 15:38 BP 136/82 11/11/18 15:38 Pulse Ox 95 11/11/18 15:38 CONSTITUTIONAL: obese, vitals as above, NAD EYES: normal conjuctivae, no scleral icterus ENT: MMM RESPIRATORY: diffuse wheezing throughout all lung richter. Still requiring oxygen supplementation via nasal canula, no respiratory distress CARDIOVASCULAR: reg rate and rhythm, S1 and 2 heard. GASTROINTESTINAL: normal bowel sounds, soft, nontender, nondistended MUSCULOSKELETAL: strength 5/5 throughout, head is normocephalic and atraumatic SKIN: warm and dry NEUROLOGIC: CN 2-12 grossly intact, normal cognition, no gross focal deficits. PSYCHIATRIC: alert cooperative and oriented to person, place and time. Results & Data Laboratory Results Short CBC 11/11/18 Range/Units 06:03 WBC 12.06 H (4.8-10.8) K/uL Hgb 13.7 (12.0-16.0) g/dL Hct 42.9 (37-47) % Plt Count 161 (130-400) K/uL BMP 11/11/18 06:03 Sodium 137 Potassium 4.2 Chloride 100 Carbon Dioxide 33 H BUN 32 H Creatinine 0.91 Glucose 145 H Calcium 8.4 L Medications Administered Current Inpatient Medications Acetaminophen (Tylenol) 650 mg PO Q4H PRN PRN Reason: Pain or Fever Stop: 12/08/18 14:29 Amiodarone HCl (Cordarone) 200 mg PO BID [facility] Stop: 12/11/18 20:59 Doxycycline Hyclate (Vibramycin) 100 mg PO BID [facility] Stop: 11/15/18 20:59 Last Admin: 11/11/18 07:48 Dose: 100 mg Documented by: Fluticasone Propionate (Flovent Hfa 44mcg) 2 puffs INH BID [facility] Stop: 12/08/18 20:59 Last Admin: 11/11/18 07:49 Dose: 2 puffs Documented by: Amiodarone HCl/Dextrose (Nexterone / D5w) 360 mg in 200 mls @ 16.667 mls/hr IV .Q12H [facility] Stop: 12/08/18 22:29 Last Admin: 11/11/18 07:47 Dose: 0.5 mg/min, 16.7 mls/hr Documented by: Furosemide 20 mg/ Syringe 2 mls @ 4 mls/min IV BID [facility] Stop: 12/08/18 16:29 Last Admin: 11/11/18 09:17 Dose: 4 mls/min Documented by: Heparin Sodium/Dextrose (Heparin Sodium/Dextrose) 25,000 units in 500 mls @ 28 mls/hr IV .[id number] [facility]; Protocol Stop: 11/11/18 20:00 Last Titration: 11/11/18 10:52 Dose: 1,400 units/hr, 28 mls/hr Documented by: Methylprednisolone 40 mg/ (Syringe) 0.64 mls @ 1.5 mls/min IV Q8H [facility] Stop: 12/10/18 18:59 Last Admin: 11/11/18 09:17 Dose: 1.5 mls/min Documented by: Ipratropium [place] (Atrovent 0.02% 0.5mg/2.5ml) 0.5 mg INH Q6R PRN PRN Reason: Shortness Of Breath Or Wheezing Stop: 12/09/18 13:14 Last Admin: 11/11/18 04:51 Dose: 0.5 mg Documented by: Levalbuterol HCl (Xopenex 0.63 Mg/3 Ml Neb) 0.63 mg NEB Q6R PRN PRN Reason: Shortness Of Breath Or Wheezin Stop: 12/09/18 13:14 Last Admin: 11/11/18 04:51 Dose: 0.63 mg Documented by: Lorazepam (Ativan) 0.5 mg PO TID PRN PRN Reason: Anxiety Stop: 12/08/18 15:58 Last Admin: 11/09/18 08:15 Dose: 0.5 mg Documented by: Magnesium Oxide (Mag-Ox) 400 mg PO QPM [facility] Stop: 12/09/18 14:44 Last Admin: 11/10/18 21:21 Dose: 400 mg Documented by: Metoprolol Tartrate (Lopressor) 100 mg PO TID [facility] Stop: 12/10/18 13:59 Last Admin: 11/11/18 12:29 Dose: 100 mg Documented by: Pantoprazole Sodium (Protonix) 40 mg PO QAM [facility] Stop: 12/10/18 08:59 Last Admin: 11/11/18 07:49 Dose: 40 mg Documented by:
[2018-11-11] MEDS ORDERED: GUAIFENESIN/CODEINE 100MG/10MG 5ML UDC PO STA (17:28)
[2018-11-11] MEDS ORDERED: GUAIFENESIN/CODEINE 200MG/20MG 10ML UDC PO PRN (17:28)
[2018-11-11] MEDS: HEPARIN STANDARD DEXTROSE 25,000 UNITS/500 ML IV SCH (17:34)
[2018-11-11] MEDS: LEVALBUTEROL HCL 0.63 MG/3 ML NEB NEB SCH (19:25)
[2018-11-11] MEDS: IPRATROPIUM BROMIDE NEB SOLN 0.02% 2.5 ML VIAL INH SCH (19:25)
[2018-11-11] MEDS: DABIGATRAN ETEXILATE 75 MG CAP PO SCH (19:49)
[2018-11-11] MEDS: AMIODARONE 200 MG TAB PO SCH (19:50)
[2018-11-11] MEDS: MAGNESIUM OXIDE 400 MG TAB PO SCH (19:53)
[2018-11-12] MEDS: LEVALBUTEROL HCL 0.63 MG/3 ML NEB NEB SCH ×4 (01:56→21:54)
[2018-11-12] MEDS: IPRATROPIUM BROMIDE NEB SOLN 0.02% 2.5 ML VIAL INH SCH ×4 (01:56→19:35)
[2018-11-12 06:20] LABS: Hemoglobin 14.2 g/dL (12.0-16.0); Mean Corpuscular Hgb Conc 32.3 g/dL (32-36); Mean Corpuscular Volume 89.2 fL (80-100); Mean Platelet Volume 9.6 fL (7.4-10.4); Platelet Count 154 K/uL (130-400); RDW Coefficient of Variation 16.1 % (11.5-14.5); RDW Standard Deviation 52.7 fL (36.4-46.3); Red Blood Count 4.93 M/uL (4.2-5.4); White Blood Count 11.03 K/uL (4.8-10.8)
[2018-11-12] MEDS: methylPREDNISolone 40 MG in SYRINGE 0 ML IV SCH ×4 (06:27→23:48)
[2018-11-12 06:52] LABS: BUN Creatinine Ratio 40.3 (10-20); Calcium 8.4 mg/dl (8.5-10.1); Creatinine Clr Calc Pharmacy 60.6 ml/min; Est GFR (African American) 68.2; Est GFR (Non-African American) 58.9; Potassium 3.8 mmol/L (3.5-5.1)
[2018-11-12] MEDS: DOXYCYCLINE HYCLATE 100 MG CAP PO SCH ×2 (08:20→20:20)
[2018-11-12] MEDS: PANTOprazole 40 MG TAB PO SCH (08:21)
[2018-11-12] MEDS: AMIODARONE 200 MG TAB PO SCH ×2 (08:21→20:19)
[2018-11-12] MEDS: FLUTICASONE PROP HFA INH 44 MCG INHALER INH SCH ×2 (08:22→20:19)
[2018-11-12] MEDS: DABIGATRAN ETEXILATE 75 MG CAP PO SCH ×2 (08:22→20:19)
[2018-11-12] MEDS: FUROSEMIDE 20 MG in SYRINGE 0 ML IV SCH (08:31)
[2018-11-12] MEDS: AMIODARONE / D5W 360 MG/200 ML BAG IV SCH (08:31)
--- NOTE | 2018-11-12 12:26 | Cardiology Progress Note ---
Date of Service November 12, 2018 She still has a cough and appears short of breath speaking in sentences today. She is unaware of any palpitations or fluttering. She denies any chest pain chest pressure chest heaviness. She has any lightheadedness or dizziness. She has any fevers chills or sweats she still has a productive cough. She is also wheezing. She denies any bleeding she does have bruising. According to her family she does look better than she did previously in the ICU. She has to sleep in a recliner at home. she likely has obstructive sleep apnea but is never been tested she snores loudly and has significant daytime somnolence. She was having worsening lower extremity edema and heart failure symptoms at home. She does have a flight of stairs to get into her home this is limiting her ability to go as she short of breath climbing the stairs. Her is currently doing all the laundry. She has osteoarthritis. The rest of the systems otherwise negative Physical Exam Vital Signs (Past 24 Hours): Last Vital Signs Temp 36.7 C 11/12/18 11:38 Pulse 66 11/12/18 11:38 Resp 20 11/12/18 11:38 BP 152/89 H 11/12/18 11:38 Pulse Ox 94 11/12/18 11:38 She is awake alert and oriented x3 she looks ill HEENT: 2+ carotid upstrokes no evidence of carotid bruits her sclera is anicteric her hearing is normal Lungs: Globally decreased breath sounds with both inspiratory and expiratory wheezing along with inspiratory and expiratory rhonchi and her lungs sound very tight Heart: Regular rate and rhythm no appreciable murmurs rubs or gallops Abdomen: Soft nontender nondistended positive bowel sounds Extremities trace to mild bilateral lower extremity edema with use of compression stockings Psychiatric: Her affect appears appropriate 1) paroxysmal atrial fibrillation: (2) acute on chronic diastolic heart failure (congestive heart failure): (3) LVH (left ventricular hypertrophy): (4) Anticoagulant long-term use: 5. acute respiratory failure secondary to RSV and heart failure She is maintaining sinus rhythm with IV amiodarone. Oral amiodarone was started yesterday. I did change her dose to 400 mg twice daily of amiodarone for 5 days and then her dose can be reduced to 200 mg twice daily for a month. Her IV amiodarone can be discontinued with this evening's oral dose. She remains on Pradaxa for anticoagulation. Based on her BUN and creatinine today she appears prerenal I would reduce her furosemide to 20 mg of IV daily 6 daily. She remains hypertensive and I added amlodipine 5 mg daily to her medical regimen left a watch for any worsening lower extremity edema She needs a home sleep study upon discharge and when her lungs returned to baseline. She likely has significant obstructive sleep apnea leading to her daytime somnolence shortness of breath and worsening her underlying diastolic heart failure. I agree with holding off adding beta-blockers back to her regimen at this point given her heart rates in the 50s and 60s.
[2018-11-12] MEDS: AMLODIPINE BESYLATE 5 MG TAB PO SCH (12:55)
--- NOTE | 2018-11-12 13:46 | Hospitalist Progress Note ---
Date of Service November 12, 2018 Assessment & Plan (1) Acute respiratory failure: Resolved after ICU treatments including BIPAP and continued support for asthma exacerbation as below. (2) Acute diastolic heart failure: Cont diuresis with IV Lasix. Monitor daily standing weights which are not currently being tracked-new order was placed to perform this daily in the morning. Low sodium diet. Per Cardiology, we should back off on diuresis to once daily. (3) Acute asthma exacerbation: Multifactorial 2/2 asthma exacerbation 2/2 RSV infection in addition to fluid overload on CHF poss 2/2 diastolic heart failure exacerbation. She is s/p DCCV on 11/09 and remains in sinus rhythm. Nebs were scheduled yesterday and solumedrol frequency was increased to q6, however, she continues to wheeze. Will consult pulmonogy for assistance. Cont doxy and Santhoshitussin AC for symptom management. (4) Atrial fibrillation with RVR: h/o PAF. DCCV to sinus rhythm. Back on Pradaxa, undergoing amio load, therefore, stopping metoprolol. Cont to monitor rate. (5) RSV (acute bronchiolitis due to respiratory syncytial virus): Cont supportive care. (6) HTN (hypertension): Amlodipine started per Cards today. (7) Obesity: (8) DVT prophylaxis: Pradaxa Full Dispo-cont tele monitoring. Shana Aponte DO [facility] Hospitalist Subjective Feeling well but still coughing. Still with SOB, isn't ambulating much. States that no one has come to walk her. Denies any pain. Physical Exam Vital Signs (Past 24 Hours): Last Vital Signs Temp 36.7 C 11/12/18 11:38 Pulse 79 11/12/18 13:18 Resp 20 11/12/18 13:18 BP 152/89 H 11/12/18 11:38 Pulse Ox 93 11/12/18 13:18 CONSTITUTIONAL: obese, vitals as above, NAD EYES: normal conjuctivae, no scleral icterus ENT: MMM RESPIRATORY: diffuse wheezing throughout all lung richter. Still requiring oxygen supplementation via nasal canula, no respiratory distress CARDIOVASCULAR: reg rate and rhythm, S1 and 2 heard. GASTROINTESTINAL: normal bowel sounds, soft, nontender, nondistended MUSCULOSKELETAL: strength 5/5 throughout, head is normocephalic and atraumatic SKIN: warm and dry NEUROLOGIC: CN 2-12 grossly intact, normal cognition, no gross focal deficits. PSYCHIATRIC: alert cooperative and oriented to person, place and time. Results & Data Laboratory Results Short CBC 11/12/18 Range/Units 06:07 WBC 11.03 H (4.8-10.8) K/uL Hgb 14.2 (12.0-16.0) g/dL Hct 44.0 (37-47) % Plt Count 154 (130-400) K/uL BMP 11/12/18 06:07 Sodium 137 Potassium 3.8 Chloride 99 Carbon Dioxide 35 H BUN 37 H Creatinine 0.93 Glucose 142 H Calcium 8.4 L Medications Administered Current Inpatient Medications Acetaminophen (Tylenol) 650 mg PO Q4H PRN PRN Reason: Pain or Fever Stop: 12/08/18 14:29 Amiodarone HCl (Cordarone) 400 mg PO BID [facility] Stop: 12/12/18 20:59 Amlodipine Besylate (Norvasc) 5 mg PO DAILY [facility] Stop: 12/12/18 12:29 Dabigatran (Pradaxa) 150 mg PO BID [facility] Stop: 12/11/18 20:59 Last Admin: 11/12/18 08:22 Dose: 150 mg Documented by: Doxycycline Hyclate (Vibramycin) 100 mg PO BID [facility] Stop: 11/15/18 20:59 Last Admin: 11/12/18 08:20 Dose: 100 mg Documented by: Fluticasone Propionate (Flovent Hfa 44mcg) 2 puffs INH BID [facility] Stop: 12/08/18 20:59 Last Admin: 11/12/18 08:22 Dose: 2 puffs Documented by: Guaifenesin/Codeine Phosphate (Robitussin-Ac Sugar Free) 10 ml PO Q6H PRN PRN Reason: Cough Stop: 12/11/18 17:27 Amiodarone HCl/Dextrose (Nexterone / D5w) 360 mg in 200 mls @ 16.667 mls/hr IV .Q12H [facility] Stop: 11/12/18 20:59 Last Admin: 11/12/18 08:31 Dose: 0.5 mg/min, 16.7 mls/hr Documented by: Methylprednisolone 40 mg/ (Syringe) 0.64 mls @ 1.5 mls/min IV Q6H [facility] Stop: 12/11/18 17:59 Last Admin: 11/12/18 06:27 Dose: 1.5 mls/min Documented by: Furosemide 20 mg/ Syringe 2 mls @ 4 mls/min IV DAILY [facility] Stop: 12/13/18 08:59 Ipratropium [place] (Atrovent 0.02% 0.5mg/2.5ml) 0.5 mg INH Q6R [facility] Stop: 12/11/18 19:59 Last Admin: 11/12/18 13:18 Dose: 0.5 mg Documented by: Levalbuterol HCl (Xopenex 0.63 Mg/3 Ml Neb) 0.63 mg NEB Q6R [facility] Stop: 12/11/18 19:59 Last Admin: 11/12/18 13:17 Dose: 0.63 mg Documented by: Lorazepam (Ativan) 0.5 mg PO TID PRN PRN Reason: Anxiety Stop: 12/08/18 15:58 Last Admin: 11/09/18 08:15 Dose: 0.5 mg Documented by: Magnesium Oxide (Mag-Ox) 400 mg PO QPM [facility] Stop: 12/09/18 14:44 Last Admin: 11/11/18 19:53 Dose: 400 mg Documented by: Metoprolol Tartrate (Lopressor) 100 mg PO TID [facility] Stop: 12/10/18 13:59 Last Admin: 11/11/18 19:50 Dose: 100 mg Documented by: Miscellaneous (Stop Order) 1 ea N/A ONE ONE Stop: 11/12/18 21:00 Pantoprazole Sodium (Protonix) 40 mg PO QAM [facility] Stop: 12/10/18 08:59 Last Admin: 11/12/18 08:21 Dose: 40 mg Documented by:
[2018-11-12] MEDS: GUAIFENESIN/DEXTROM SYRUP 200MG/20MG 10ML UDC PO PRN (17:39)
[2018-11-12] MEDS: MAGNESIUM OXIDE 400 MG TAB PO SCH (20:19)
--- NOTE | 2018-11-12 20:57 | Ultrasound Report ---
US venous doppler LE BI CLINICAL HISTORY: Bilateral lower extremity pain COMPARISON STUDY: No previous studies for comparison. FINDINGS: Real-time and color flow Doppler imaging were performed. Flow was seen within the femoral, popliteal and calf veins with no intraluminal thrombus demonstrated. The saphenous vein is patent. IMPRESSION: No evidence of lower extremity DVT. Electronically signed by: Rajendra Solorio M.D. 11/12/2018 8:56 PM
[2018-11-12] MEDS ORDERED: [UNRECOGNIZED DRUG - REMARK] ONE (20:59)
[2018-11-13] MEDS: LEVALBUTEROL HCL 0.63 MG/3 ML NEB NEB SCH ×4 (02:15→19:49)
[2018-11-13] MEDS: IPRATROPIUM BROMIDE NEB SOLN 0.02% 2.5 ML VIAL INH SCH ×4 (02:15→19:48)
--- NOTE | 2018-11-13 02:57 | Consultation Report ---
DATE OF CONSULTATION: 11/12/2018 PULMONARY MEDICINE CONSULTATION REASON FOR CONSULTATION: Persistent dyspnea and chest congestion. HISTORY OF PRESENT ILLNESS: A 77-year-old white female, patient of Dr. Ramirez in the [place] area. She was admitted by Dr. Shana Aponte. She was admitted on 11/08/2018. The patient was a transfer from the [facility] where she presented with new-onset atrial fibrillation with a rapid ventricular response. She was admitted on 11/07/2018 with shortness breath and wheezing, and was diagnosed with RSV on PCR testing. She has a history of paroxysmal atrial fibrillation and the morning of transfer, her heart rate was in the 160s. She was given 5 mg IV metoprolol and then 20 mg IV Cardizem and then placed on a drip. Her heart rate or at least her ventricular response remained elevated in the 120-150 range. She was on Pradaxa while in the hospital. Upon transfer to [facility], she remained in atrial fibrillation. Her blood pressure was 98/72 and her O2 sat was 96% on [address] Prince was consulted who placed her on IV heparin and IV amiodarone. She appeared to be volume overloaded and had a BNP of over 8000. Chest x-ray was compatible with congestive failure and she was diuresed. She has persisted with her wheezing, although has shown some improvement. She has been on Flovent inhaler as an outpatient and has been supplemented with oxygen and has received around the clock nebulizer treatments. She states she has been an asthmatic in the past, has a negative smoking history. Two years ago, went through a similar episode but did not have to be hospitalized. She has not had an allergy or immunology evaluation and has not seen a recycling operator in the past. Today, she remained bronchospastic. They continued to diurese her with IV Lasix. The patient has converted to sinus rhythm. Her Solu-Medrol was decreased to every 6 hours. I have asked to see patient in consultation. For details of past medical history, medications, family and social history, I refer you to current and past record. PHYSICAL EXAMINATION: GENERAL: This is a well-developed, obese white female in no obvious distress with her breathing at rest. VITAL SIGNS: Blood pressure 152/89, pulse 79 and regular, respiratory rate 20, temperature 36.7, O2 sat 93% on 4 liters. SKIN: Warm and dry. HEENT: Atraumatic, normocephalic, PERRLA, EOMI. Conjunctivae pink. Sclerae nonicteric. Fundi poorly visualized. LUNGS: Scattered wheezes bilaterally. CARDIAC: Regular rate and rhythm. I do not appreciate a gallop. ABDOMEN: Soft, protuberant. EXTREMITIES: 2+ pitting edema with chronic stasis changes. NEUROLOGIC: Intact. No lateralizing signs. The patient does sleep in a recliner at home. Her has not witnessed apneic episodes, but she is a loud snorer and has significant daytime hypersomnolence along with increased pedal edema. LABORATORY DATA: Chest x-ray on 11/08/2018 shows cardiomegaly and there was pulmonary vascular congestion suggesting fluid overload. White count currently 11,000, but she is on IV steroids. H and H 14 and 44. On admission, no significant peripheral eosinophilia was noted. Calculated CO2 of 35. Echocardiogram on 11/10/2018 following the cardioversion on 11/09/2018, left ventricle shows an EF of 65% and hyperdynamic. Grade 1 diastolic dysfunction noted. Right ventricle is poorly visualized. OVERALL ASSESSMENT: A 77-year-old with moderately persistent asthma by history with new-onset paroxysmal atrial fibrillation with a fast ventricular response and subsequent congestive heart failure aggravated by diastolic dysfunction. I suspect patient has obstructive sleep apnea and whether an acute RSV infection has triggered this bronchospasm or otherwise an atypical infection, we will check serology. Clearly amiodarone has assisted with conversion to sinus rhythm and I would slowly taper her steroid, but hold on current dosing until there is significant improvement in her bronchospasm. Whether or not she has a superimposed bacterial process that is continuing her persistent symptoms is unclear. She is on doxycycline p.o. 100 mg b.i.d. and we will check mycoplasma legionella titers as well. I would like to see what her IgE level is and see if she is a candidate for targeted therapy for her asthma and would probably benefit from a full allergy and immunology evaluation along with a nocturnal polysomnograph as an outpatient. We will follow along with you. Thank you very much for this consultation.
[2018-11-13] MEDS: methylPREDNISolone 40 MG in SYRINGE 0 ML IV SCH ×4 (05:29→23:29)
[2018-11-13 07:18] LABS: BUN Creatinine Ratio 38.1 (10-20); Calcium 8.8 mg/dl (8.5-10.1); Creatinine Clr Calc Pharmacy 60.3 ml/min; Est GFR (African American) 68.2; Est GFR (Non-African American) 58.9; Magnesium 2.6 mg/dl (1.8-2.4); Potassium 3.8 mmol/L (3.5-5.1)
--- NOTE | 2018-11-13 07:36 | XRay Report ---
XR chest 1V portable CLINICAL HISTORY: Congestive heart failure. COMPARISON STUDY: Chest radiograph November 10, 2018. FINDINGS: Patient is mildly rotated. There is no pneumothorax or pleural effusion. Cardiomegaly is un changed. Interstitial thickening persists. No lobar consolidation is noted. IMPRESSION: No change in mild pulmonary edema. Electronically signed by: René Flaherty M.D. 11/13/2018 7:35 AM
[2018-11-13] MEDS: FLUTICASONE PROP HFA INH 44 MCG INHALER INH SCH ×2 (08:10→21:17)
[2018-11-13] MEDS: DOXYCYCLINE HYCLATE 100 MG CAP PO SCH ×2 (08:11→21:19)
[2018-11-13] MEDS: PANTOprazole 40 MG TAB PO SCH (08:11)
[2018-11-13] MEDS: DABIGATRAN ETEXILATE 75 MG CAP PO SCH ×2 (08:11→21:18)
[2018-11-13] MEDS: AMLODIPINE BESYLATE 5 MG TAB PO SCH (08:11)
[2018-11-13] MEDS: AMIODARONE 200 MG TAB PO SCH ×2 (08:12→22:00)
[2018-11-13] MEDS ORDERED: FUROSEMIDE 20 MG in SYRINGE 0 ML IV SCH (09:00)
[2018-11-13] MEDS: GUAIFENESIN/DEXTROM SYRUP 200MG/20MG 10ML UDC PO PRN (09:40)
--- NOTE | 2018-11-13 12:56 | Hospitalist Progress Note ---
Date of Service November 13, 2018 Assessment & Plan (1) Acute respiratory failure: Resolved after ICU treatments including BIPAP and continued support for asthma exacerbation as below. (2) Acute diastolic heart failure: Cont diuresis with IV Lasix. Has increased rhonchi and appears more volume overloaded on exam. Increased Lasix to 40mg IV BID. Monitor daily standing weights which are not currently being tracked-new order was placed to perform this daily in the morning. Low sodium diet. Discussed this plan with Cardiology (3) Acute asthma exacerbation: Multifactorial 2/2 asthma exacerbation 2/2 RSV infection in addition to fluid overload on CHF poss 2/2 diastolic heart failure exacerbation. She is s/p DCCV on 11/09 and remains in sinus rhythm. Wheezing has improved with increase of solumedrol. Cont doxy and Robitussin AC for symptom management. (4) Atrial fibrillation with RVR: h/o PAF. DCCV to sinus rhythm. Back on Pradaxa, Amio PO. Restarting low dose metoprolol now. Discussed this plan with Cardiology. (5) RSV (acute bronchiolitis due to respiratory syncytial virus): Cont supportive care. (6) HTN (hypertension): More controlled today. Amlodipine started per Cards today. (7) Obesity: (8) DVT prophylaxis: Pradaxa Full Dispo-cont tele monitoring. Shana Aponte DO [facility] Hospitalist Subjective Doesn't feel much improved today Reports some persistent leg pain bilaterally Cough still persistent Generalized weakness. No DVT on US bilaterally CXR this am reveals no change in pulmonary edema Still hypoxic Heart rate elevated into the low 100s on telemetry review. -still in sinus Physical Exam Vital Signs (Past 24 Hours): Last Vital Signs Temp 36.4 C L 11/13/18 11:39 Pulse 79 11/13/18 11:39 Resp 20 11/13/18 11:39 BP 148/82 H 11/13/18 11:39 Pulse Ox 94 11/13/18 11:39 CONSTITUTIONAL: obese, vitals as above, NAD EYES: normal conjuctivae, no scleral icterus ENT: MMM RESPIRATORY: coarse rhochi, diffuse wheezing throughout all lung richter. Still requiring oxygen supplementation via nasal canula, no respiratory distress CARDIOVASCULAR: reg rate and rhythm, S1 and 2 heard. GASTROINTESTINAL: normal bowel sounds, soft, nontender, nondistended MUSCULOSKELETAL: strength 5/5 throughout, head is normocephalic and atraumatic SKIN: warm and dry NEUROLOGIC: CN 2-12 grossly intact, normal cognition, no gross focal deficits. PSYCHIATRIC: alert cooperative and oriented to person, place and time. Results & Data Laboratory Results [facility] 11/13/18 06:37 Sodium 141 Potassium 3.8 Chloride 100 Carbon Dioxide 36 H BUN 36 H Creatinine 0.93 Glucose 148 H Calcium 8.8 Medications Administered Current Inpatient Medications Acetaminophen (Tylenol) 650 mg PO Q4H PRN PRN Reason: Pain or Fever Stop: 12/08/18 14:29 Amiodarone HCl (Cordarone) 400 mg PO BID [facility] Stop: 12/12/18 20:59 Last Admin: 11/13/18 08:12 Dose: 400 mg Documented by: Amlodipine Besylate (Norvasc) 5 mg PO DAILY [facility] Stop: 12/12/18 12:29 Last Admin: 11/13/18 08:11 Dose: 5 mg Documented by: Dabigatran (Pradaxa) 150 mg PO BID [facility] Stop: 12/11/18 20:59 Last Admin: 11/13/18 08:11 Dose: 150 mg Documented by: Docusate Sodium (Colace) 100 mg PO BID [facility] Stop: 12/13/18 20:59 Doxycycline Hyclate (Vibramycin) 100 mg PO BID [facility] Stop: 11/15/18 20:59 Last Admin: 11/13/18 08:11 Dose: 100 mg Documented by: Fluticasone Propionate (Flovent Hfa 44mcg) 2 puffs INH BID [facility] Stop: 12/08/18 20:59 Last Admin: 11/13/18 08:10 Dose: 2 puffs Documented by: Furosemide (Lasix) 40 mg IV NOW STA Stop: 11/13/18 12:59 Guaifenesin/Codeine Phosphate (Robitussin-Ac Sugar Free) 10 ml PO Q6H PRN PRN Reason: Cough Stop: 12/11/18 17:27 Guaifenesin/Dextromethorphan (Robitussin Cough-Chest Dm) 10 ml PO Q6H PRN PRN Reason: Cough Stop: 12/12/18 16:41 Last Admin: 11/13/18 09:40 Dose: 10 ml Documented by: Methylprednisolone 40 mg/ (Syringe) 0.64 mls @ 1.5 mls/min IV Q6H [facility] Stop: 12/11/18 17:59 Last Admin: 11/13/18 11:50 Dose: 1.5 mls/min Documented by: Furosemide 40 mg/ Syringe 4 mls @ 4 mls/min IV BID17 [facility] Stop: 12/14/18 08:59 Ipratropium [place] (Atrovent 0.02% 0.5mg/2.5ml) 0.5 mg INH Q6R [facility] Stop: 12/11/18 19:59 Last Admin: 11/13/18 07:19 Dose: 0.5 mg Documented by: Levalbuterol HCl (Xopenex 0.63 Mg/3 Ml Neb) 0.63 mg NEB Q6R [facility] Stop: 12/11/18 19:59 Last Admin: 11/13/18 07:19 Dose: 0.63 mg Documented by: Lorazepam (Ativan) 0.5 mg PO TID PRN PRN Reason: Anxiety Stop: 12/08/18 15:58 Last Admin: 11/09/18 08:15 Dose: 0.5 mg Documented by: Magnesium Oxide (Mag-Ox) 400 mg PO QPM [facility] Stop: 12/09/18 14:44 Last Admin: 11/12/18 20:19 Dose: 400 mg Documented by: Metoprolol Tartrate (Lopressor) 25 mg PO BID [facility] Stop: 12/13/18 12:59 Pantoprazole Sodium (Protonix) 40 mg PO QAM [facility] Stop: 12/10/18 08:59 Last Admin: 11/13/18 08:11 Dose: 40 mg Documented by: Polyethylene Glycol (Miralax Powder Packet) 17 gm PO DAILY PRN PRN Reason: Constipation Stop: 12/13/18 12:58
[2018-11-13] MEDS ORDERED: FUROSEMIDE 40 MG/4 ML VIAL IV STA (12:58)
[2018-11-13] MEDS ORDERED: POLYETHYLENE (MIRALAX) 17 GM PACK PO PRN (12:59)
[2018-11-13] MEDS ORDERED: FUROSEMIDE 40 MG in SYRINGE 0 ML IV STA (13:13)
[2018-11-13] MEDS: METOPROLOL TARTRATE 25 MG TAB PO SCH ×2 (14:09→21:17)
[2018-11-13] MEDS: DOCUSATE SODIUM 100 MG CAP PO SCH (21:17)
[2018-11-13] MEDS: MAGNESIUM OXIDE 400 MG TAB PO SCH (21:18)
[2018-11-14] MEDS: IPRATROPIUM BROMIDE NEB SOLN 0.02% 2.5 ML VIAL INH SCH ×4 (02:09→20:03)
[2018-11-14] MEDS: LEVALBUTEROL HCL 0.63 MG/3 ML NEB NEB SCH ×4 (02:10→20:03)
[2018-11-14] MEDS: methylPREDNISolone 40 MG in SYRINGE 0 ML IV SCH ×2 (05:45→11:42)
[2018-11-14 08:27] LABS: Hematocrit (blood only) 49.6 % (37-47); Hemoglobin 15.8 g/dL (12.0-16.0); Mean Corpuscular Hgb Conc 31.9 g/dL (32-36); Mean Corpuscular Volume 88.7 fL (80-100); Mean Platelet Volume 9.9 fL (7.4-10.4); Platelet Count 161 K/uL (130-400); RDW Standard Deviation 52.3 fL (36.4-46.3); Red Blood Count 5.59 M/uL (4.2-5.4); White Blood Count 15.82 K/uL (4.8-10.8)
[2018-11-14 08:39] LABS: BUN Creatinine Ratio 30.2 (10-20); Calcium 9.3 mg/dl (8.5-10.1); Creatinine Clr Calc Pharmacy 46.3 ml/min; Est GFR (African American) 49.6; Est GFR (Non-African American) 42.8; Potassium 3.9 mmol/L (3.5-5.1)
[2018-11-14] MEDS: DOCUSATE SODIUM 100 MG CAP PO SCH ×2 (08:53→21:18)
[2018-11-14] MEDS: DOXYCYCLINE HYCLATE 100 MG CAP PO SCH ×2 (08:53→21:18)
[2018-11-14] MEDS: METOPROLOL TARTRATE 25 MG TAB PO SCH ×2 (08:53→21:19)
[2018-11-14] MEDS: DABIGATRAN ETEXILATE 75 MG CAP PO SCH ×2 (08:54→21:18)
[2018-11-14] MEDS: FLUTICASONE PROP HFA INH 44 MCG INHALER INH SCH ×2 (08:54→21:20)
[2018-11-14] MEDS ORDERED: FUROSEMIDE 40 MG in SYRINGE 0 ML IV SCH (09:00)
[2018-11-14] MEDS: AMLODIPINE BESYLATE 5 MG TAB PO SCH (09:13)
[2018-11-14] MEDS: AMIODARONE 200 MG TAB PO SCH ×2 (09:13→21:20)
[2018-11-14] MEDS: PANTOprazole 40 MG TAB PO SCH (09:13)
--- NOTE | 2018-11-14 13:05 | Cardiology Progress Note ---
Date of Service November 14, 2018 Assessment & Plan (1) Atrial fibrillation: The patient remains in sinus rhythm on amiodarone. (2) CHF (congestive heart failure): The patient is diuresing on intravenous furosemide 40 mg twice daily. She still demonstrates hypervolemia. (3) LVH (left ventricular hypertrophy): Echocardiogram performed during this hospitalization and in May 2018 noted normal left ventricular systolic function and moderate LVH. There was a dynamic mid ventricular outflow obstruction varying between 10 and 50 mmHg. (4) Anticoagulant long-term use: Pradaxa has been restarted as her long-term anticoagulant. Subjective The patient is resting in bed without complaints of chest pain. Her dyspnea is improving with diuresis. Physical Exam Vital Signs (Past 24 Hours): Last Vital Signs Temp 36.6 C 11/14/18 11:46 Pulse 81 11/14/18 11:46 Resp 18 11/14/18 11:46 BP 121/82 11/14/18 11:46 Pulse Ox 94 11/14/18 11:46 Physical Exam: In general is a well-developed well-nourished white female in no acute distress. HEENT exam is negative. Neck is supple with full carotid u pstrokes. No obvious bruits. Jugular is pressure is difficult to assess. Cardiovascular exam reveals a regular rhythm with a normal S1-S2. No obvious murmurs. Lungs note coarse breath sounds and expiratory wheezes throughout. Abdomen is obese without bruits. Extremities reveal intact radial artery pulses bilaterally. No peripheral edema. Results & Data Laboratory Results Laboratory Results - last 24 hr 11/14/18 11/14/18 08:08 08:08 WBC 15.82 H RBC 5.59 H Hgb 15.8 Hct 49.6 H MCV 88.7 MCH 28.3 MCHC 31.9 L RDW Std Deviation 52.3 H RDW Coeff of Allen 16.0 H Plt Count 161 MPV 9.9 Sodium 138 Potassium 3.9 Chloride 98 Carbon Dioxide 34 H Anion Gap 6.0 BUN 37 H Creatinine 1.21 H Est Cr Clr Drug Dosing 46.3 Est GFR ( Amer) 49.6 Est GFR (Non-Af Amer) 42.8 BUN/Creatinine Ratio 30.2 H Glucose 195 H Calcium 9.3 Diagnostic Findings monitor tech notes sinus rhythm with occasional PACs and PVCs. One brief run of an atrial tachycardia noted. No atrial fibrillation.
--- NOTE | 2018-11-14 14:38 | Hospitalist Progress Note ---
Date of Service November 14, 2018 Assessment & Plan (1) Acute respiratory failure: Resolved after ICU treatments including BIPAP and continued support for asthma exacerbation as below. Hypoxia persists, likely multifactorial secondary to acute diastolic heart failure, acute asthma exacerbation, prolonged IV steroid use. Lasix twice daily was started yesterday with a small bump in her creatinine. I discussed the case peripherally with nephrology who recommended multi daily dose Lasix at a smaller amount. Lasix 20 mg IV 4 times daily was ordered. Briggs should remain intact for now with diuresis continued. Steroids were switched to prednisone p.o. and are likely contributing to fluid retention as we are on day 6 of steroids this hospitalization. Continue neb treatments, continue to encourage patient to move around which will help to mobilize fluid. Continue salt restricted diet and daily standing weights. Added a 1.5 L fluid restriction daily. Will monitor BMP in a.m. and if creatinine is significantly worse, would consider contacting Nephrology. (2) Acute diastolic heart failure: cont as above (3) Acute asthma exacerbation: as above and cont doxy for max 10 day course, less if she improves. cough syrup to help with symptoms. (4) Atrial fibrillation with RVR: h/o PAF. DCCV to sinus rhythm. Back on Pradaxa, Amio PO. Restarting low dose metoprolol yesetrday with good rate control. (5) RSV (acute bronchiolitis due to respiratory syncytial virus): Cont supportive care. (6) HTN (hypertension): More controlled today. Amlodipine started per Cards today. (7) Obesity: (8) DVT prophylaxis: Pradaxa Full Dispo-cont tele monitoring. She is overall more fluid overloaded and not improving from hypoxia/breathing standpoint. I am changing her diuresis to 20 mg IV 4 times daily instead of 40 mg IV twice daily and stopping Solu-Medrol which has been ongoing for the last 6 days, converting to prednisone which hopefully can be tapered off quickly. I am expecting these changes to help her volume overloaded state. She will likely go to SNF at discharge unless she starts to move and strengthen more. Shana Aponte DO [facility] Hospitalist Subjective Patient is roughly the same as yesterday. She is still coughing. She denies any fever. Next line she is not moving very much around the room. She is up in the chair today. She is still requiring oxy gen. Physical Exam Vital Signs (Past 24 Hours): Last Vital Signs Temp 36.6 C 11/14/18 11:46 Pulse 76 11/14/18 13:58 Resp 18 11/14/18 13:58 BP 121/82 11/14/18 11:46 Pulse Ox 96 11/14/18 13:58 CONSTITUTIONAL: obese, vitals as above, NAD EYES: normal conjuctivae, no scleral icterus ENT: MMM RESPIRATORY: coarse rhochi, diffuse wheezing throughout all lung richter +rales. Still requiring oxygen supplementation via nasal canula, no respiratory distress but not improved. CARDIOVASCULAR: reg rate and rhythm, S1 and 2 heard. GASTROINTESTINAL: normal bowel sounds, soft, nontender, nondistended MUSCULOSKELETAL: strength 5/5 throughout, head is normocephalic and atraumatic SKIN: warm and dry NEUROLOGIC: CN 2-12 grossly intact, normal cognition, no gross focal deficits. PSYCHIATRIC: alert cooperative and oriented to person, place and time. Results & Data Laboratory Results Short CBC 11/14/18 Range/Units 08:08 WBC 15.82 H (4.8-10.8) K/uL Hgb 15.8 (12.0-16.0) g/dL Hct 49.6 H (37-47) % Plt Count 161 (130-400) K/uL BMP 11/14/18 08:08 Sodium 138 Potassium 3.9 Chloride 98 Carbon Dioxide 34 H BUN 37 H Creatinine 1.21 H Glucose 195 H Calcium 9.3 Medications Administered Current Inpatient Medications Acetaminophen (Tylenol) 650 mg PO Q4H PRN PRN Reason: Pain or Fever Stop: 12/08/18 14:29 Amiodarone HCl (Cordarone) 400 mg PO BID [facility] Stop: 12/12/18 20:59 Last Admin: 11/14/18 09:13 Dose: 400 mg Documented by: Amlodipine Besylate (Norvasc) 5 mg PO DAILY [facility] Stop: 12/12/18 12:29 Last Admin: 11/14/18 09:13 Dose: 5 mg Documented by: Dabigatran (Pradaxa) 150 mg PO BID [facility] Stop: 12/11/18 20:59 Last Admin: 11/14/18 08:54 Dose: 150 mg Documented by: Docusate Sodium (Colace) 100 mg PO BID [facility] Stop: 12/13/18 20:59 Last Admin: 11/14/18 08:53 Dose: 100 mg Documented by: Doxycycline Hyclate (Vibramycin) 100 mg PO BID [facility] Stop: 11/15/18 20:59 Last Admin: 11/14/18 08:53 Dose: 100 mg Documented by: Fluticasone Propionate (Flovent Hfa 44mcg) 2 puffs INH BID [facility] Stop: 12/08/18 20:59 Last Admin: 11/14/18 08:54 Dose: 1 puffs Documented by: Guaifenesin/Codeine Phosphate (Robitussin-Ac Sugar Free) 10 ml PO Q6H PRN PRN Reason: Cough Stop: 12/11/18 17:27 Guaifenesin/Dextromethorphan (Robitussin Cough-Chest Dm) 10 ml PO Q6H PRN PRN Reason: Cough Stop: 12/12/18 16:41 Last Admin: 11/13/18 09:40 Dose: 10 ml Documented by: Methylprednisolone 40 mg/ (Syringe) 0.64 mls @ 1.5 mls/min IV Q6H [facility] Stop: 12/11/18 17:59 Last Admin: 11/14/18 11:42 Dose: 1.5 mls/min Documented by: Furosemide 40 mg/ Syringe 4 mls @ 4 mls/min IV BID17 [facility] Stop: 12/14/18 08:59 Last Admin: 11/14/18 08:53 Dose: 4 mls/min Documented by: Ipratropium [place] (Atrovent 0.02% 0.5mg/2.5ml) 0.5 mg INH Q6R [facility] Stop: 12/11/18 19:59 Last Admin: 11/14/18 13:56 Dose: 0.5 mg Documented by: Levalbuterol HCl (Xopenex 0.63 Mg/3 Ml Neb) 0.63 mg NEB Q6R [facility] Stop: 12/11/18 19:59 Last Admin: 11/14/18 13:56 Dose: 0.63 mg Documented by: Lorazepam (Ativan) 0.5 mg PO TID PRN PRN Reason: Anxiety Stop: 12/08/18 15:58 Last Admin: 11/09/18 08:15 Dose: 0.5 mg Documented by: Magnesium Oxide (Mag-Ox) 400 mg PO QPM [facility] Stop: 12/09/18 14:44 Last Admin: 11/13/18 21:18 Dose: 400 mg Documented by: Metoprolol Tartrate (Lopressor) 25 mg PO BID [facility] Stop: 12/13/18 12:59 Last Admin: 11/14/18 08:53 Dose: 25 mg Documented by: Pantoprazole Sodium (Protonix) 40 mg PO QAM [facility] Stop: 12/10/18 08:59 Last Admin: 11/14/18 09:13 Dose: 40 mg Documented by: Polyethylene Glycol (Miralax Powder Packet) 17 gm PO DAILY PRN PRN Reason: Constipation Stop: 12/13/18 12:58
[2018-11-14] MEDS: FUROSEMIDE 20 MG in SYRINGE 0 ML IV SCH ×2 (19:13→23:28)
[2018-11-14] MEDS: MAGNESIUM OXIDE 400 MG TAB PO SCH (21:19)
[2018-11-15] MEDS: IPRATROPIUM BROMIDE NEB SOLN 0.02% 2.5 ML VIAL INH SCH ×4 (01:50→19:30)
[2018-11-15] MEDS: LEVALBUTEROL HCL 0.63 MG/3 ML NEB NEB SCH ×4 (01:51→19:30)
[2018-11-15] MEDS: FUROSEMIDE 20 MG in SYRINGE 0 ML IV SCH ×4 (05:10→18:18)
[2018-11-15 06:50] LABS: Hemoglobin 15.4 g/dL (12.0-16.0); Mean Corpuscular Hgb Conc 32.8 g/dL (32-36); Mean Platelet Volume 10.2 fL (7.4-10.4); Platelet Count 157 K/uL (130-400); RDW Coefficient of Variation 15.9 % (11.5-14.5); RDW Standard Deviation 51.3 fL (36.4-46.3); Red Blood Count 5.34 M/uL (4.2-5.4); White Blood Count 17.87 K/uL (4.8-10.8)
[2018-11-15 07:25] LABS: BUN Creatinine Ratio 38.9 (10-20); Calcium 8.4 mg/dl (8.5-10.1); Creatinine Clr Calc Pharmacy 55.6 ml/min; Est GFR (African American) 63.3; Est GFR (Non-African American) 54.6; Potassium 3.3 mmol/L (3.5-5.1)
[2018-11-15] MEDS: predniSONE 20 MG TAB PO SCH (08:41)
[2018-11-15] MEDS: AMIODARONE 200 MG TAB PO SCH ×2 (08:41→20:28)
[2018-11-15] MEDS: DOCUSATE SODIUM 100 MG CAP PO SCH ×2 (08:41→20:26)
[2018-11-15] MEDS: DABIGATRAN ETEXILATE 75 MG CAP PO SCH ×2 (08:41→20:27)
[2018-11-15] MEDS: PANTOprazole 40 MG TAB PO SCH (08:41)
[2018-11-15] MEDS: DOXYCYCLINE HYCLATE 100 MG CAP PO SCH (08:41)
[2018-11-15] MEDS: AMLODIPINE BESYLATE 5 MG TAB PO SCH (08:41)
[2018-11-15] MEDS: METOPROLOL TARTRATE 25 MG TAB PO SCH ×2 (08:41→20:26)
[2018-11-15] MEDS: FLUTICASONE PROP HFA INH 44 MCG INHALER INH SCH ×2 (08:42→20:25)
--- NOTE | 2018-11-15 09:48 | Cardiology Progress Note ---
Date of Service November 15, 2018 Assessment & Plan (1) Atrial fibrillation: The patient remains in sinus rhythm on amiodarone and metoprolol tartrate. (2) CHF (congestive heart failure): The patient is diuresing on intravenous furosemide 20 mg QID. She is still hypervolemia, but improving. (3) LVH (left ventricular hypertrophy): Echocardiogram performed during this hospitalization and in May 2018 noted normal left ventricular systolic function and moderate LVH. There was a dynamic mid ventricular outflow obstruction varying between 10 and 50 mmHg. (4) Anticoagulant long-term use: Pradaxa has been restarted as her long-term anticoagulant. Subjective The patient is resting comfortably at the bedside. She has noticed some improvement in her respiratory status. Physical Exam Vital Signs (Past 24 Hours): Last Vital Signs Temp 36.8 C 11/15/18 06:49 Pulse 107 H 11/15/18 07:12 Resp 18 11/15/18 07:12 BP 118/75 11/15/18 06:49 Pulse Ox 95 11/15/18 07:12 Physical Exam: In general is a well-developed well-nourished white female in no acute distress. HEENT exam is negative. Neck is supple with full carotid upstrokes. No obvious bruits. Jugular is pressure is difficult to assess. Cardiovascular exam reveals a regular rhythm with a normal S1-S2. No obvious murmurs. Lungs note coarse breath sounds throughout. Abdomen is obese without bruits. Extremities reveal intact radial artery pulses bilaterally. No peripheral edema. Results & Data Laboratory Results Laboratory Results - last 24 hr 11/15/18 11/15/18 06:23 06:23 WBC 17.87 H RBC 5.34 Hgb 15.4 Hct 47.0 MCV 88.0 MCH 28.8 MCHC 32.8 RDW Std Deviation 51.3 H RDW Coeff of Allen 15.9 H Plt Count 157 MPV 10.2 Sodium 140 Potassium 3.3 L D Chloride 98 Carbon Dioxide 37 H Anion Gap 5.0 BUN 39 H Creatinine 0.99 Est Cr Clr Drug Dosing 55.6 Est GFR ( Amer) 63.3 Est GFR (Non-Af Amer) 54.6 BUN/Creatinine Ratio 38.9 H Glucose 117 H Calcium 8.4 L Diagnostic Findings toys and games hand finisher notes sinus rhythm with occasional PACs and PVCs. No atrial fibrillation.
--- NOTE | 2018-11-15 18:36 | Hospitalist Progress Note ---
Date of Service November 15, 2018 Assessment & Plan (1) Acute respiratory failure: due to acute decompensated CHF with diastolic heart failure clinically improved after diuresis with IV Lasix 20 mg Q 6hrs (2) Acute diastolic heart failure: appreciate input from cardiology presented with Hypoxia /KITCHEN/Vol overload ECHO shows normal LV function with dynamic mild ventricular out flow obstruction varying between 10-50 mmhg pt is continued with IV Lasix 20 mg Q 6hrs ordered for K supplement /check BMP and Mg monitor daily wt /I's and O's (3) Acute asthma exacerbation: possible due to decompensated CHF on po doxycycline Cough symptom improved with diuresis (4) Atrial fibrillation with RVR: h/o PAF. remains in sinus cont on Amiodarone and Metoprolol on Pradaxa Cardiology following (5) RSV (acute bronchiolitis due to respiratory syncytial virus): Cont supportive care. (6) HTN (hypertension): on Norvasc/beta jr (7) Obesity: BMO 45.4 diet and exercise /life style modification nutrition consult Present on Admission?: Yes (8) DVT prophylaxis: on Pradaxa Full CODe status DISPOSITION ; cont Tele monitoring PT/OT Eval Subjective Feels much better today, denies of any shortness of breath, no chest heaviness or discomfort, converted to normal sinus rhythm off Cardizem drip Physical Exam Vital Signs (Past 24 Hours): Last Vital Signs Temp 36.4 C L 11/15/18 15:58 Pulse 87 11/15/18 15:58 Resp 16 11/15/18 15:58 BP 118/76 11/15/18 15:58 Pulse Ox 91 11/15/18 15:58 Physical Exam: GENERAL: No sign of distress, HEENT: Sclera nonicteric, pink-purple bilateral equal reactive to light extraocular muscle intact Normal oral mucosa, neck: No JVD, no thyromegaly, trachea midline Lungs: Clear to auscultate, no wheeze or rales Cardiovascular: Regular S1 and S2, no murmur or gallop, no JVD, no lower extremity edema Abdomen: Soft, nontender, bowel sounds active, no hepatosplenomegaly Extremities: No rash or deformity, normal joint, Neuro: No focal neurological deficit, no dysarthria, no facial droop Psych: Alert awake oriented x3: Euthymic Skin: No rash LYMPH NODES: No cervical lymphadenopathy
[2018-11-15] MEDS: MAGNESIUM OXIDE 400 MG TAB PO SCH (20:27)
[2018-11-15] MEDS ORDERED: POTASSIUM CHLORIDE 20 MEQ TABCR PO STA (20:55)
[2018-11-16] MEDS: FUROSEMIDE 20 MG in SYRINGE 0 ML IV SCH ×5 (00:28→23:41)
[2018-11-16] MEDS: LEVALBUTEROL HCL 0.63 MG/3 ML NEB NEB SCH ×4 (01:45→19:10)
[2018-11-16] MEDS: IPRATROPIUM BROMIDE NEB SOLN 0.02% 2.5 ML VIAL INH SCH ×4 (01:45→19:10)
[2018-11-16 07:20] LABS: BUN Creatinine Ratio 38.3 (10-20); Calcium 8.8 mg/dl (8.5-10.1); Creatinine Clr Calc Pharmacy 57.1 ml/min; Est GFR (African American) 65.7; Est GFR (Non-African American) 56.6; Magnesium 2.6 mg/dl (1.8-2.4); Potassium 3.7 mmol/L (3.5-5.1)
[2018-11-16] MEDS: DOCUSATE SODIUM 100 MG CAP PO SCH ×2 (08:33→21:36)
[2018-11-16] MEDS: AMIODARONE 200 MG TAB PO SCH ×2 (08:33→21:37)
[2018-11-16] MEDS: DABIGATRAN ETEXILATE 75 MG CAP PO SCH ×2 (08:33→21:35)
[2018-11-16] MEDS: AMLODIPINE BESYLATE 5 MG TAB PO SCH (08:33)
[2018-11-16] MEDS: FLUTICASONE PROP HFA INH 44 MCG INHALER INH SCH ×2 (08:34→21:35)
[2018-11-16] MEDS: PANTOprazole 40 MG TAB PO SCH (08:34)
[2018-11-16] MEDS: predniSONE 20 MG TAB PO SCH (08:34)
[2018-11-16] MEDS: POTASSIUM CHLORIDE 20 MEQ TABCR PO SCH (08:36)
[2018-11-16] MEDS: METOPROLOL TARTRATE 25 MG TAB PO SCH ×2 (09:25→21:36)
--- NOTE | 2018-11-16 09:58 | Cardiology Progress Note ---
Date of Service November 16, 2018 Assessment & Plan (1) Atrial fibrillation: The patient remains in sinus rhythm on amiodarone and Lopressor. (2) CHF (congestive heart failure): The patient is diuresing on intravenous furosemide 20 mg QID. (3) LVH (left ventricular hypertrophy): Echocardiogram notes normal left ventricular systolic function and moderate LVH. There is a dynamic mid ventricular outflow obstruction varying between 10 and 50 mmHg. (4) Anticoagulant long-term use: Pradaxa has been restarted as her long-term anticoagulant. Subjective The patient is resting comfortably in the bedside chair. She continues to note improvement in her respiratory status. Physical Exam Vital Signs (Past 24 Hours): Last Vital Signs Temp 36.6 C 11/16/18 07:05 Pulse 94 H 11/16/18 07:05 Resp 16 11/16/18 07:05 BP 110/74 11/16/18 07:05 Pulse Ox 96 11/16/18 07:05 Physical Exam: In general is a well-developed well-nourished white female in no acute distress. HEENT exam is negative. Neck is supple with full carotid upstrokes. No obvious bruits. Jugular is pressure is difficult to assess. C ardiovascular exam reveals a regular rhythm with a normal S1-S2. No obvious murmurs. Lungs note coarse breath sounds and expiratory wheezes throughout. Abdomen is obese without bruits. Extremities reveal intact radial artery pulses bilaterally. Trace pretibial edema. Results & Data Laboratory Results Laboratory Results - last 24 hr 11/16/18 06:18 Sodium 140 Potassium 3.7 Chloride 98 Carbon Dioxide 38 H Anion Gap 5.0 BUN 37 H Creatinine 0.96 Est Cr Clr Drug Dosing 57.1 Est GFR ( Amer) 65.7 Est GFR (Non-Af Amer) 56.6 BUN/Creatinine Ratio 38.3 H Glucose 107 H Calcium 8.8 Magnesium 2.6 H Diagnostic Findings quality assurance monitor body notes sinus rhythm with occasional PACs.
--- NOTE | 2018-11-16 18:29 | Hospitalist Progress Note ---
Date of Service November 16, 2018 Assessment & Plan (1) Acute respiratory failure: Respiratory status improved to approximate baseline, clinically denies of any orthopnea Has minimal dyspnea on exertion Presented with hypoxia, dyspnea on exertion, volume overload due to acute decompensated CHF with diastolic heart failure clinically improved after diuresis with IV Lasix 20 mg Q 6hrs Cardiology following closely, Be transitioned to oral Lasix prior to discharge (2) Acute diastolic heart failure: appreciate input from cardiology presented with Hypoxia /KITCHEN/Vol overload ECHO shows normal LV function with dynamic mild ventricular out flow obstruction varying between 10-50 mmhg pt is continued with IV Lasix 20 mg Q 6hrs Be transitioned to oral Lasix 40 mg every 12 hours prior to discharge appreciate input from cardiology monitor daily wt /I's and O's (3) Acute asthma exacerbation: possible due to decompensated CHF on po doxycycline complete total 7 days course Cough symptom improved with diuresis (4) Atrial fibrillation with RVR: h/o PAF. remains in sinus cont on Amiodarone and Metoprolol on Pradaxa Cardiology following (5) RSV (acute bronchiolitis due to respiratory syncytial virus): Cont supportive care. (6) HTN (hypertension): on Norvasc/beta jr (7) Obesity: BMI 45.4 diet and exercise /life style modification nutrition consult (8) DVT prophylaxis: on Pradaxa Full CODe status DISPOSITION ; cont Tele monitoring PT/OT Eval requested, recommended rehab referral made to [facility], Subjective no complain of SOB or KITCHEN feels tired and weak cough has improved no fever or chills Physical Exam Vital Signs (Past 24 Hours): Last Vital Signs Temp 36.6 C 11/16/18 16:06 Pulse 90 11/16/18 16:06 Resp 16 11/16/18 16:06 BP 116/79 11/16/18 16:06 Pulse Ox 92 11/16/18 16:06 Constitutional: WD/WN, vitals as above + obese Eyes: PERRL, conjunctivae normal, anicteric sclerae ENMT: external ear and nose normal, oropharynx normal Mouth: no dentition abnormality Mallampati Class: II Neck: trachea midline, no thyromegaly normal visual inspection Respiratory: normal respiratory effort Gastrointestinal (Abdomen): normal bowel sounds, soft, nontender, no hepatosplenomegaly
[2018-11-16] MEDS: MAGNESIUM OXIDE 400 MG TAB PO SCH (21:36)
[2018-11-17] MEDS: LEVALBUTEROL HCL 0.63 MG/3 ML NEB NEB SCH ×4 (01:57→19:32)
[2018-11-17] MEDS: IPRATROPIUM BROMIDE NEB SOLN 0.02% 2.5 ML VIAL INH SCH ×4 (01:57→19:32)
[2018-11-17] MEDS: FUROSEMIDE 20 MG in SYRINGE 0 ML IV SCH ×2 (05:54→12:10)
[2018-11-17 07:29] LABS: BUN Creatinine Ratio 36.4 (10-20); Calcium 9.3 mg/dl (8.5-10.1); Est GFR (African American) 64.8; Est GFR (Non-African American) 55.9
[2018-11-17 08:07] LABS: Potassium 3.7 mmol/L (3.5-5.1)
[2018-11-17 08:08] LABS: Magnesium 2.7 mg/dl (1.8-2.4)
[2018-11-17] MEDS: DOCUSATE SODIUM 100 MG CAP PO SCH ×2 (08:10→19:56)
[2018-11-17] MEDS: predniSONE 20 MG TAB PO SCH (08:10)
[2018-11-17] MEDS: PANTOprazole 40 MG TAB PO SCH (08:10)
[2018-11-17] MEDS: AMIODARONE 200 MG TAB PO SCH ×2 (08:10→19:56)
[2018-11-17] MEDS: METOPROLOL TARTRATE 25 MG TAB PO SCH ×2 (08:10→19:55)
[2018-11-17] MEDS: FLUTICASONE PROP HFA INH 44 MCG INHALER INH SCH ×2 (08:10→19:56)
[2018-11-17] MEDS: DABIGATRAN ETEXILATE 75 MG CAP PO SCH ×2 (08:11→19:55)
[2018-11-17] MEDS: POTASSIUM CHLORIDE 20 MEQ TABCR PO SCH (08:11)
[2018-11-17] MEDS: AMLODIPINE BESYLATE 5 MG TAB PO SCH (08:13)
[2018-11-17] MEDS: FUROSEMIDE 40 MG TAB PO SCH (16:25)
[2018-11-17 18:12] LABS: Aspergillus Antigen, Serum Not Detected (Not Detected); Aspergillus Flavus Negative (Negative); Aspergillus Niger Negative (Negative); Immunoglobulin IgE 33 KU/L (<115); Mycoplasma pneumoniae Ab, IgG >5.00 (<=0.90); Mycoplasma pneumoniae Ab, IgM 413 U/mL (<770)
--- NOTE | 2018-11-17 18:13 | Hospitalist Progress Note ---
Date of Service November 17, 2018 Assessment & Plan (1) Acute respiratory failure: Respiratory status improved to approximate baseline, clinically denies of any orthopnea Has minimal dyspnea on exertion Presented with hypoxia, dyspnea on exertion, volume overload due to acute decompensated CHF with diastolic heart failure clinically improved after diuresis with IV Lasix 20 mg Q 6hrs Cardiology following closely, changed to PO Lasix 40 mg BID Per PT/OT pt will benefit with in patient rehab referral made to [facility] (2) Acute diastolic heart failure: appreciate input from cardiology presented with Hypoxia /KITCHEN/Vol overload ECHO shows normal LV function with dynamic mild ventricular out flow obstruction varying between 10-50 mmhg pt is continued with IV Lasix 20 mg Q 6hrs Be transitioned to oral Lasix 40 mg every 12 hours cardiology follow up with Dr Archer as out patient (3) Acute asthma exacerbation: possible due to decompensated CHF on po doxycycline complete total 7 days course Cough symptom improved with diuresis (4) Atrial fibrillation with RVR: h/o PAF. remains in sinus cont on Amiodarone and Metoprolol on Pradaxa Cardiology following (5) RSV (acute bronchiolitis due to respiratory syncytial virus): Cont supportive care. completed Po Doxyxycline (6) HTN (hypertension): on Norvasc/beta jr (7) Obesity: BMI 45.4 diet and exercise /life style modification nutrition consult (8) DVT prophylaxis: on Pradaxa Full CODe status DISPOSITION ; PT/OT Eval requested, recommended rehab referral made to [facility], transfer to [facility] tomorrow as bed available will need wheel chair transport Subjective breathing much improved minimum cough no fever or chills evaluated by Cardiology today stable to be discharged Physical Exam Vital Signs (Past 24 Hours): Last Vital Signs Temp 36.4 C L 11/17/18 15:16 Pulse 95 H 11/17/18 15:16 Resp 20 11/17/18 15:16 BP 110/76 11/17/18 15:16 Pulse Ox 90 11/17/18 15:16 Constitutional: WD/WN, vitals as above + obese Eyes: PERRL, conjunctivae normal, anicteric sclerae ENMT: external ear and nose normal, oropharynx normal Mouth: no dentition abnormality Mallampati Class: II Neck: trachea midline, no thyromegaly normal visual inspection Respiratory: normal respiratory effort Cardiovascular: Rate/Rhythm: + tachycardic; + abnormal rate and + abnormal rhythm Gastrointestinal (Abdomen): normal bowel sounds, soft, nontender, no hepatosplenomegaly
[2018-11-17] MEDS: MAGNESIUM OXIDE 400 MG TAB PO SCH (19:55)
[2018-11-18] MEDS: IPRATROPIUM BROMIDE NEB SOLN 0.02% 2.5 ML VIAL INH SCH ×2 (01:22→07:29)
[2018-11-18] MEDS: LEVALBUTEROL HCL 0.63 MG/3 ML NEB NEB SCH ×2 (01:22→07:29)
[2018-11-18 06:31] VITALS: TEMP 97.7
[2018-11-18 07:31] VITALS: PULSE 92; O2SAT 93
[2018-11-18 07:36] LABS: BUN Creatinine Ratio 42.2 (10-20); Est GFR (African American) 61.7; Est GFR (Non-African American) 53.3; Magnesium 2.6 mg/dl (1.8-2.4); Potassium 3.6 mmol/L (3.5-5.1)
[2018-11-18] MEDS: METOPROLOL TARTRATE 25 MG TAB PO SCH (07:52)
[2018-11-18] MEDS: DABIGATRAN ETEXILATE 75 MG CAP PO SCH (07:53)
[2018-11-18] MEDS: FUROSEMIDE 40 MG TAB PO SCH (07:53)
[2018-11-18] MEDS: POTASSIUM CHLORIDE 20 MEQ TABCR PO SCH (07:53)
[2018-11-18] MEDS: PANTOprazole 40 MG TAB PO SCH (07:53)
[2018-11-18] MEDS: predniSONE 20 MG TAB PO SCH (07:53)
[2018-11-18] MEDS: DOCUSATE SODIUM 100 MG CAP PO SCH (07:53)
[2018-11-18] MEDS: AMLODIPINE BESYLATE 5 MG TAB PO SCH (07:54)
[2018-11-18] MEDS: AMIODARONE 200 MG TAB PO SCH (07:54)
[2018-11-18] MEDS: FLUTICASONE PROP HFA INH 44 MCG INHALER INH SCH (07:54)
--- NOTE | 2018-11-18 10:23 | Discharge Summary ---
Date of Service November 18, 2018 Admission HPI Per Admitting Provider Pt is 77 y/o F with PMH HTN, dyslipidemia, atrial fibrillation on Pradaxa, asthma, diastolic dysfunction, LVH, dynamic LVOT obstruction, obesity, osteoarthritis, GERD presented to [facility] from [facility] for atrial fibrillation with RVR. Patient states was seen at urgent care center 2 days ago for congestion and nonproductive cough that she has been having for several days. She reports was prescribed prednisone and Augmentin. Patient states that increased shortness of breath so went to ER at [facility] yesterday and was admitted to hospital. It is reported that patient was noted to be tach ypneic, wheezing in ER with respiratory rate of 32 patient was placed on 2 L oxygen nasal cannula and had unremarkable ABG. It is reported no leukocytosis. Patient was found to have positive RSV and negative influenza on respiratory PCR. She was treated with DuoNeb and later Pulmicort nebs, methylprednisolone IV, and oxygen was increased to 5 L NC. CXR: "Bilateral opacities representing multifocal pneumonia or pulmonary edema". Patient was given dose of cefepime. This morning patient was found to be in atrial fibrillation RVR with heart rate as high as 160. Reported BP 170/62, R: 24. Patient was given metoprolol 5 mg IV without control of heart rate and was then given Cardizem 20 mg IVP and then placed on Cardizem drip currently at 10 mg/h with reported heart rate still in the 1 teens. Upon arrival to [facility] patient heart rate 120s-160s in atrial fibrillation. Patient denies chest pain, palpitations. States she feels tired. Does report still feels short of breath however feels it is improved from when she initially presented to [facility] yesterday. Patient reports she is unsure if she was receiving her metoprolol or pradaxa while in the hospital [place]. She reports chronic BLE edema and doesn't feel has increased LE edema. Follows with Dr Archer for cardiology. Pt reports chronic orthopnea. Denies fever/chills, diaphoresis, N/V/D/C, [place], dizziness, syncope, vision changes, neck pain, sore throat, choking, otalgia, abdominal pain, paresthesias, rashes, urinary symptoms. Principal Diagnosis DECOMPENSATED CHF WITH DIASTOLIC DYSFUNCTION, ATRIAL FIBRILLATION WITH RAPID VENTRICULAR RESPONSE Discharge Exam Constitutional WD/WN, vitals as above + obese Eyes PERRL, conjunctivae normal, anicteric sclerae ENMT external ear and nose normal, oropharynx normal Mouth: no dentition abnormality Mallampati Class: II Neck trachea midline, no thyromegaly normal visual inspection Respiratory normal respiratory effort Cardiovascular Rate/Rhythm: + tachycardic; + abnormal rate and + abnormal rhythm Gastrointestinal (Abdomen) normal bowel sounds, soft, nontender, no hepatosplenomegaly Discharge Data Allergies Allergy/AdvReac Type Severity Reaction Status Date / Time rivaroxaban Allergy Unknown RASH Unverified 05/27/16 07:10 adhesive AdvReac Mild TAPE - Verified 05/27/16 07:10 TEARS SKIN Consultations 11/08/18 14:30 Consult Cardiology Routine 11/08/18 14:31 Consult Case Management - Discharge Planning Routine 11/09/18 09:45 Consult Anesthesiology Routine 11/09/18 18:05 Consult Land Survey Technician Routine 11/12/18 13:49 Consult Pulmonology Routine Procedures Performed Operation Date: 11/09/18 15:30 Actual Procedures p Cardioversion - Brad Prince MD Ordered Studies 11/12/18 13:49 US venous doppler [facility] Urgent Hospital Course (1) Acute respiratory failure: Respiratory status improved to approximate baseline, clinically denies of any orthopnea Has minimal dyspnea on exertion Presented with hypoxia, dyspnea on exertion, volume overload due to acute decompensated CHF with diastolic heart failure clinically improved after diuresis with IV Lasix 20 mg Q 6hrs Cardiology following closely, changed to PO Lasix 40 mg BID Per PT/OT pt will benefit with in patient rehab referral made to [facility] stable to be transferred to rehab (2) Acute diastolic heart failure: appreciate input from cardiology presented with Hypoxia /KITCHEN/Vol overload ECHO shows normal LV function with dynamic mild ventricular out flow obstruction varying between 10-50 mmhg pt was treated with IV Lasix 20 mg Q 6hrs transitioned to oral Lasix 40 mg every 12 hours cardiology follow up with Dr Archer as out patient transfer to rehab today (3) Acute asthma exacerbation: possible due to decompensated CHF on po doxycycline complete total 7 days course Cough symptom improved with diuresis (4) Atrial fibrillation with RVR: h/o PAF. remains in sinus cont on Amiodarone and Metoprolol on Pradaxa Cardiology following (5) RSV (acute bronchiolitis due to respiratory syncytial virus): Cont supportive care. completed Po Doxyxycline (6) HTN (hypertension): on Norvasc/beta jr (7) Obesity: BMI 45.4 diet and exercise /life style modification nutrition consult (8) DVT prophylaxis: on Pradaxa Full CODe status DISPOSITION ; PT/OT Eval requested, recommended rehab referral made to [facility], transfer to [facility] today Total Time Total Time Spent Total Time Spent (In Minutes): 40 mins Total Time Includes: Examination of the Patient, Discharge Planning and Medication Reconciliation Discharge Plan Discharge Items Patient Disposition: Transfer Inpatient Rehab Fac Reason For Visit: AFIB, RVR Discharge Diagnosis: DECOMPENSATED CHF WITH DIASTOLIC DYSFUNCTION, ATRIAL FIBRILLATION WITH RAPID VENTRICULAR RESPONSE Discharge Goals: Decrease discomfort, Diagnostic testing, Improve disease control and Improve function Activity: Per 'Additional Instructions' section Activity Comment: Continue physical therapy/Occupational Therapy Non-emergency contact: Primary Care Provider Call non-emergency contact if: you have any medication questions Follow-up/Referrals: Jas Archer MD [Shank Faker] - Brad Ramirez DO [Primary Care Provider] - Diet: Heart Healthy and Low Sodium (2gm) Fluids: 1800ml (7 cups) Addtl Provider Instructions: Call your Primary Care doctor if any of the following symptoms or problems start or get worse: * Shortness of breath or difficulty breathing * Wake up at night short of breath * Chest pain * Cough * Swelling of your hands, feet, or legs * More fatigued or tired with your normal activity * Palpitations - sudden fast heart beats WEIGHT * Weigh yourself every morning after using the bathroom. * Use the same scale. * Wear the same amount of clothing. * Write your weight down on a chart. * Call your Primary Care doctor if you gain more than 2-3 pounds in 1-2 days. MEDICATIONS * Use this discharge instruction sheet for medication instructions. * Take your medications at the time your doctor ordered. * Do not skip a dose of your medicines. * If you miss a dose of medicine, take it as soon as possible, but DO NOT DOUBLE A DOSE. * Read your medicine information when you get home. * Know all of the side effects of your medicine. If in doubt, ask your pharmacist * Call your Primary Care doctor's office if you have any side effects. * Be sure all of your doctors know what medicine and herbs you take (including cold, flu, and herbal medicine). Take the following with you to your follow-up doctor appointments: * Weight Chart * Medication List * List of questions Do not drink excessive alcohol, beer or wine. Prescriptions: New amiodarone 200 mg Tablet 400 mg PO BID 30 Days Qty: 120 RF: 0 amlodipine [Norvasc] 5 mg Tablet 5 mg PO DAILY 30 Days Qty: 30 RF: 0 furosemide 40 mg Tablet 40 mg PO BID 30 Days Qty: 60 RF: 0 potassium chloride [Klor-Con M20] 20 mEq Tablet,Er Particles/Crystals 40 meq PO QAM 30 Days Qty: 60 RF: 0 magnesium oxide 400 mg (241.3 mg magnesium) Tablet 400 mg PO QPM 30 Days Qty: 30 RF: 0 metoprolol tartrate 25 mg Tablet 25 mg PO BID 30 Days Qty: 60 RF: 0 Continued triamcinolone acetonide 0.1 % cream 0.1 % topical BID RF: 0 lorazepam 0.5 mg Tablet 0.5 mg PO TID PRN (Reason: Anxiety) RF: 0 nystatin 100,000 unit/gram cream 100,000 RF: 0 Flovent HFA 44 mcg/actuation Hfa Aerosol Inhaler 2 inh INHALATION BID RF: 0 Pradaxa 150 mg Capsule 150 mg PO BID RF: 0 melatonin 10 mg Tablet 10 mg PO HS PRN (Reason: Insomnia) RF: 0 cyanocobalamin (vitamin B-12) [Vitamin B-12] 1,000 mcg Tablet 1,000 mcg PO DAILY RF: 0 aspirin 81 mg Tablet,Delayed Release (Dr/Ec) 81 mg PO DAILY RF: 0 garlic 1,000 mg Capsule 1,000 mg PO DAILY RF: 0 albuterol sulfate 90 mcg/actuation Hfa Aerosol Inhaler 2 puff INHALATION QID PRN (Reason: Shortness Of Breath Or Wheezing) RF: 0 omega 8-[id number]-sxa-fish oil [Fish Oil] 1,000 mg (120 mg-180 mg) Capsule 1 cap PO DAILY RF: 0 Discontinued furosemide 40 mg Tablet 40 mg PO DAILY RF: 0 metoprolol tartrate 100 mg Tablet 100 mg PO TID RF: 0 potassium chloride [Klor-Con 10] 10 mEq Tablet Extended Release 10 meq PO DAILY RF: 0 Stand-Alone Forms: [facility] Discharge Orders: Discharge Order (Routine); Ordered 11/18/18 Ordered By: Elena Burgos Skilled Items Patient informed of condition?: Yes DNR: No Discharge Level of Care: Acute rehab Communicable Disease: No Discharge Prognosis: Stable Admission Data Admit Date/Time: 11/08/18 14:19 Attending Provider: Elena Burgos Admit Provider: Mary Kennedy Primary Care Provider: Brad Ramirez V Other Providers: Brad Prince ; Karrie Matta ; Lisa Harrison ; Dana Becerra ; Sarai Peterson ; Theodora Weaver ; Angelica Martinez ; Norm Mahan ; Demetri Abarca ; Barry Gamble ; Marcela Gamble ; Papi Silva ; Merissa Be ; Nehemiah Tong ; Gareth Teague ; Camacho Gallegos ; Andre Longoria ; Diego Leonard ; Heather Jolly ; Kenn Norton ; Nahed Salazar ; Katherine Norton ; Anshu Miller ; Manasa Escoto ; Rogers Iniguez ; Jovana Lee ; Jenifer Jackson ; Alec Holt ; Jaki Moreno ; Justa Stapleton ; Ayala Bolden ; Bharati Mendez ; Neto Mendez V ; Daryl Rodriguez ; Dana Cotter ; Xiang Mcguire ; Gabriela Stearns V ; Wayne Chen ; Indy Younger ; Monica Peralta ; Marie Cotter ; Neto Vazquez ; Valdo Gates ; Nilton Jolly ; Divya Sinha ; Ayala Salvador ; Demetri Mujica ; Lawanda Mtz ; Frank Leonard ; Zahida Cosme ; Stephen Kahn ; Papi Miller ; Jas Koehler ; Asim Bruno ; Sarai Banda ; Nitish Leos ; Lizabeth Wang ; Neto Campos ; Tess Silverman ; Joi Perla ; Leia Allison ; Jean Jaime ; Alec Ellington ; Rupesh Martinez ; Shana Aponte Service: Telemetry Other Interventions: Discharge Summary Assessment (RN) Last Done: 11/18/18 10:39
[2018-11-18 10:44] VITALS: BP 121/87
== END 2018-11-18 12:45 | DRG 291 ==
LOC: 2E 14:19 → SUATTDRO 14:19 → 1E 11-09 12:42 → 2S 11-10 17:41

== ENCOUNTER 2021-12-01 22:51 | Inpatient (IN) ==
--- NOTE | 2021-12-01 23:06 | Emergency Department Note ---
Impression & Plan Left-sided chest pain, Acute exacerbation of chronic obstructive pulmonary disease Admit to the [facility] ED Provider Note NAME: TIFFANY DASILVA AGE: 81 SEX: F ARRIVES VIA: Ambulance INFORMANT: Patient ED PROVIDER(S): Zaina Akhtar DO CHIEF COMPLAINT: Chest pain and shortness of breath PLAN: Disposition: Admit to the [facility] Condition: Stable MEDICAL DECISION MAKING: This is an 81-year-old female patient who presents to the emergency department with sudden onset of chest pain around 5 PM this evening and worsening shortness of breath. The patient was just discharged from [facility] earlier this evening after an 8-day stay for pneumonia and COPD exacerbation. EKG and troponin are unremarkable. Patient got mild relief of the chest discomfort with some IV fentanyl. She received an hour-long neb treatment with only minimal relief to her bronchospasm. [facility]. Triage Nursing notes reviewed and agree with them. Prior medical records reviewed discharge summary from [facility] Vital Signs: reviewed and remarkable Differential diagnosis: Worsening pneumonia; COPD exacerbation; PE; exacerbation of congestive heart failure ER treatment provided: Hour-long DuoNeb treatment Diagnostics interpreted by me: ECG: normal sinus rhythm at [address] segment elevation or signs of ischemia . There is no ectopy. Cardiac Monitoring: Sinus rhythm at 90 Laboratory studies: See below Imaging studies: As per my interpretation Portable chest x-ray: Persistent multifocal pneumonia HPI: 81/F arrives for evaluation of pain and shortness of breath. Patient explains that she was discharged earlier today from [facility] after she had been admitted there for pneumonia. After eating supper this evening, the patient developed some chest pain around 5 PM this evening and then became increasingly short of breath. The patient is typically on 2 L of oxygen but then when she is active bumps up to 3 L. When she developed the chest discomfort with any type of movement of her upper body or any type of activity, she felt worsening rest of breath. The patient began to wheeze and had to use her inhalers. EMS was called [facility] and they administered DuoNeb, Solu-Medrol, and aspirin. ROS: See above HPI for pertinent positives & negatives. A total of 10 systems reviewed and were otherwise negative. PAST MEDICAL HISTORY:See Below PAST SURGICAL HISTORY:See Below FAMILY HISTORY:See Below SOCIAL HISTORY:See Below HOME MEDICATIONS:See list ALLERGIES:See list VITALS:See Below PHYSICAL EXAMINATION: HEENT: Head - normocephalic and atraumatic. Pupils are equal, round, and reactive to light. Extraocular eye muscles are intact, and sclera are anicteric. Nose - moist nasal mucosa without discharge. Mouth - moist buccal mucosa. Oropharynx is nonerythematous and there is no tonsillar exudate or edema noted. Neck: Supple; no JVD appreciated Heart: Regular rate and rhythm. There is a normal S1 and S2 with no murmurs, clicks, or gallops appreciated. Lungs: Diffuse inspiratory and expiratory wheezes in all lung richter with rales at both bases Abdomen: Soft, completely nontender, nondistended, with good bowel sounds. There are no palpable pulsatile masses or hepatosplenomegaly. There is no guarding, rigidity, or rebound noted. Extremities: Patient has pitting edema up to her knees Skin: warm and dry with good turgor and no rashes. ED COURSE: Times/Reassessments: 2305: The patient was evaluated in room B4. Laboratory studies were drawn as above. The patient was placed on an hour-long nebulizer treatment. An order was placed for continuous cardiac monitoring. The patient was in a normal sinus rhythm at a rate of 90. A twelve-lead EKG was obtained. Laboratory studies were drawn as above. Chest x-ray was obtained. Revealed persistent multifocal pneumonia. Patient was given 50 mcg of IV fentanyl for the chest discomfort. On repeat evaluation, the patient did have some mild relief of the chest pain with the fentanyl. She was given a subsequent dose. I discussed the case with the [facility] hospitalist. Zaina Akhtar DO Past Med/Surg History Medical History (Updated 12/02/21 @ 05:46 by Zaina Akhtar DO) Asthma Atrial fibrillation CHF (congestive heart failure) Diastolic dysfunction Dyslipidemia GERD (gastroesophageal reflux disease) HTN (hypertension) LVH (left ventricular hypertrophy) Obesity Osteoarthritis Spinal stenosis at L4-L5 level Surgical History (Updated 07/12/19 @ 11:31 by Drea Mckoy) History of appendectomy History of arthroplasty of knee History of carpal tunnel surgery History of cataract extraction History of section x2 History of knee replacement, total bilateral History of spinal fusion L4-L5 Hx of tonsillectomy Family History (Updated 07/12/19 @ 11:38 by Drea Mckoy) Grandfather (Paternal) Cancer Lung cancer Father AAA (abdominal aortic aneurysm) Mother Myocardial infarction Hypertension Other Coronary heart disease No family history of bleeding disorder Thyroid disease Social History (Updated 07/12/19 @ 11:39 by Drea Mckoy) Smoking Status: Never smoker Second Hand Exposure: Yes; Do You Dip or Chew Tobacco: No; Tobacco Cessation Education Requested by Patient: No Hx Alcohol Use: No Hx Substance Use: No Preferred Language: [place] Sudanese Communication Ability: Effective [employer] Required: No Beliefs That Will Affect Care: None marital status: Current Living Situation: Spouse and Family current occupational status: retired Other Information That Helps Us Care for You: No Feels Safe at Home: Yes Safety Concerns: Feels Safe At This Time Assistive Devices: Glasses, Oxygen - Continuous and Walker Allergies Allergies Allergy/AdvReac Type Severity Reaction Status Date / Time rivaroxaban Allergy Unknown RASH Verified 08/10/21 14:23 adhesive AdvReac Mild TAPE - Verified 08/10/21 14:23 TEARS SKIN Home Meds Home Medications Medication Instructions Recorded Confirmed Senna-S 1 tab PO DAILY PRN 12/02/21 12/02/21 albuterol sulfate 2.5 mg INHALATION Q6 PRN 12/02/21 12/02/21 apixaban 5 mg tablet (Eliquis) 5 mg PO BID 12/02/21 12/02/21 aspirin 81 mg PO DAILY 12/02/21 12/02/21 calcium carbonate 600 mg-vitamin 1 tab PO BID 12/02/21 12/02/21 D3 5 mcg (200 unit) tablet fluticasone furoate 200 1 inh INHALATION DAILY 12/02/21 12/02/21 mcg-vilanterol 25 mcg/dose inhalation powder (Breo Ellipta) furosemide 40 mg tablet 40 mg PO BID 12/02/21 12/02/21 guaifenesin 600 mg tablet, 600 mg PO Q12H PRN 12/02/21 12/02/21 extended release 12 hr (Mucinex) lorazepam 0.5 mg tablet (Ativan) 0.5 mg PO TID PRN 12/02/21 12/02/21 magnesium oxide 400 mg PO DAILY 12/02/21 12/02/21 metoprolol tartrate 25 mg tablet 12.5 mg PO BID 12/02/21 12/02/21 potassium chloride 20 mEq 20 meq PO AMHS 12/02/21 12/02/21 tablet,extended release prednisone 10 mg tablet 10 mg PO DIRECTED 12/02/21 12/02/21 sulfamethoxazole 800 1 tab PO QAM 12/02/21 12/02/21 mg-trimethoprim 160 mg tablet tiotropium bromide 18 mcg capsule 18 mcg INHALATION DAILY 12/02/21 12/02/21 with inhalation device (Spiriva with HandiHaler) Results & Data (ED) Vital Signs Vital Signs - 24 hr 12/01/21 22:59 12/01/21 23:10 12/01/21 23:17 Temperature 36.9 C Temperature Source Oral Pulse Rate 93 H 91 H Pulse Rate [Apical] Pulse Rate from SpO2 Sensor 91 H Pulse Rhythm Regular Pulse Rhythm [Apical] Pulse Strength Normal Pulse Strength [Apical] Respiratory Rate 28 H 24 Respiratory Effort / Characteristics Spontaneous Short of Breath SOB on Exertion Respiratory Depth Normal Respiratory Pattern Tachypnea Blood Pressure 141/89 H Blood Pressure [Left Arm] Blood Pressure Mean 106 Blood Pressure Mean [Left Arm] Blood Pressure Position Semi-fowlers Blood Pressure Position [Left Arm] Pulse Oximetry 94 92 94 Oxygen Delivery Method Nasal Cannula Nasal Cannula Oxygen Flow Rate 4 4 Sepsis Recent Fever Within 48 Hours No Sepsis New/Unexplained Change in Mental Status No Sepsis Action Taken by Nursing No Action Required 12/01/21 23:20 12/01/21 23:21 12/01/21 23:22 Temperature Temperature Source Pulse Rate 97 H 92 H 88 Pulse Rate [Apical] Pulse Rate from SpO2 Sensor 97 H 87 Pulse Rhythm Irregular Pulse Rhythm [Apical] Pulse Strength Pulse Strength [Apical] Respiratory Rate 26 H 24 23 Respiratory Effort / Characteristics Respiratory Depth Respiratory Pattern Blood Pressure 123/83 Blood Pressure [Left Arm] Blood Pressure Mean 96 Blood Pressure Mean [Left Arm] Blood Pressure Position Blood Pressure Position [Left Arm] Pulse Oximetry 94 94 94 Oxygen Delivery Method Nasal Cannula Oxygen Flow Rate 4 Sepsis Recent Fever Within 48 Hours Sepsis New/Unexplained Change in Mental Status Sepsis Action Taken by Nursing 12/01/21 23:23 12/01/21 23:30 12/01/21 23:39 Temperature 36.8 C Temperature Source Oral Pulse Rate 91 H Pulse Rate [Apical] 90 88 Pulse Rate from SpO2 Sensor 89 Pulse Rhythm Pulse Rhythm [Apical] Regular Pulse Strength Pulse Strength [Apical] Normal Respiratory Rate 24 28 H 24 Respiratory Effort / Characteristics Spontaneous Short of Breath SOB on Exertion Spontaneous Short of Breath Respiratory Depth Normal Respiratory Pattern Tachypnea Blood Pressure Blood Pressure [Left Arm] 123/83 Blood Pressure Mean Blood Pressure Mean [Left Arm] 96 Blood Pressure Position Blood Pressure Position [Left Arm] Semi-fowlers Pulse Oximetry 94 95 92 Oxygen Delivery Method Nasal Cannula Nasal Cannula Oxygen Flow Rate 4 4 Sepsis Recent Fever Within 48 Hours Sepsis New/Unexplained Change in Mental Status Sepsis Action Taken by Nursing 12/01/21 23:40 12/01/21 23:50 12/02/21 00:00 Temperature Temperature Source Pulse Rate 91 H 96 H 89 Pulse Rate [Apical] Pulse Rate from SpO2 Sensor 89 87 87 Pulse Rhythm Pulse Rhythm [Apical] Pulse Strength Pulse Strength [Apical] Respiratory Rate 19 23 16 Respiratory Effort / Characteristics Respiratory Depth Respiratory Pattern Blood Pressure Blood Pressure [Left Arm] Blood Pressure Mean Blood Pressure Mean [Left Arm] Blood Pressure Position Blood Pressure Position [Left Arm] Pulse Oximetry 93 94 95 Oxygen Delivery Method Oxygen Flow Rate Sepsis Recent Fever Within 48 Hours Sepsis New/Unexplained Change in Mental Status Sepsis Action Taken by Nursing 12/02/21 00:10 12/02/21 00:30 12/02/21 01:00 Temperature Temperature Source Pulse Rate 91 H Pulse Rate [Apical] 94 H Pulse Rate from SpO2 Sensor 87 Pulse Rhythm Pulse Rhythm [Apical] Pulse Strength Pulse Strength [Apical] Respiratory Rate 19 24 Respiratory Effort / Characteristics Labored Labored Respiratory Depth Respiratory Pattern Blood Pressure Blood Pressure [Left Arm] 116/91 Blood Pressure Mean Blood Pressure Mean [Left Arm] 99 Blood Pressure Position Blood Pressure Position [Left Arm] Pulse Oximetry 95 95 85 L Oxygen Delivery Method Nebulizer Room Air Oxygen Flow Rate Sepsis Recent Fever Within 48 Hours Sepsis New/Unexplained Change in Mental Status Sepsis Action Taken by Nursing 12/02/21 01:14 Temperature Temperature Source Pulse Rate Pulse Rate [Apical] 106 H Pulse Rate from SpO2 Sensor Pulse Rhythm Pulse Rhythm [Apical] Pulse Strength Pulse Strength [Apical] Respiratory Rate 22 Respiratory Effort / Characteristics Accessory Muscle Use Labored Respiratory Depth Respiratory Pattern Blood Pressure Blood Pressure [Left Arm] 126/76 Blood Pressure Mean Blood Pressure Mean [Left Arm] 92 Blood Pressure Position Blood Pressure Position [Left Arm] Pulse Oximetry 90 Oxygen Delivery Method Oxymask Oxygen Flow Rate 6 Sepsis Recent Fever Within 48 Hours Sepsis New/Unexplained Change in Mental Status Sepsis Action Taken by Nursing Laboratory Data Result diagrams: 12/01/21 23:03 12/01/21 23:03 Lab Results 12/01/21 12/01/21 12/01/21 Range/Units 23:03 23:03 23:03 WBC 11.41 H (4.8-10.8) K/uL RBC 4.75 (4.2-5.4) M/uL Hgb 15.4 (12.0-16.0) g/dL Hct 46.8 (37-47) % MCV 98.5 (80-100) fL MCH 32.4 (25-34) pg MCHC 32.9 (32-36) g/dL RDW Std Deviation 56.1 H (36.4-46.3) fL RDW Coeff of Allen 15.5 H (11.5-14.5) % Plt Count 224 (130-400) K/uL MPV 10.5 H (7.4-10.4) fL Immature Gran % (Auto) 0.5 % Neut % (Auto) 68.0 % Lymph % (Auto) 18.3 % [place] % (Auto) 13.0 % Eos % (Auto) 0.1 % Baso % (Auto) 0.1 % Neut # (Auto) 7.76 H (1.4-6.5) K/uL Lymph # (Auto) 2.09 (1.2-3.4) K/uL [place] # (Auto) 1.48 H (0.11-0.59) K/uL Eos # (Auto) 0.01 (0-0.5) K/uL Baso # (Auto) 0.01 (0-0.2) K/uL Immature Gran # (Auto) 0.06 H (0.00-0.02) K/uL Sodium 136 (136-145) mmol/L Potassium 4.5 (3.5-5.1) mmol/L Chloride 98 (98-107) mmol/L Carbon Dioxide 30 (21-32) mmol/L Anion Gap 8 (3-11) BUN 35 H (6-23) mg/dl Creatinine 1.06 (0.6-1.2) mg/dl Est Cr Clr Drug Dosing 42.3 ml/min Est GFR ( Amer) 56.6 ml/min Est GFR (Non-Af Amer) 48.9 ml/min BUN/Creatinine Ratio 33.0 H (10-20) Glucose 109 H (70-99(Fasting)) mg/dl Calcium 9.4 (8.5-10.1) mg/dl Total Bilirubin 0.8 (0.2-1.0) mg/dl AST 24 (13-39) U/L ALT 47 (7-52) U/L Alkaline Phosphatase 201 H (34-104) U/L Troponin I < 0.03 (0-0.04) ng/ml B-Natriuretic Peptide 85 (0-100) pg/ml Total Protein 7.3 (6.0-8.3) gm/dl Albumin 3.7 (3.4-5.0) gm/dl Globulin 3.6 (2.5-4.0) gm/dl Albumin/Globulin Ratio 1.0 (0.9-2) SARS-CoV-2 (PCR) (Negative) Influenza Type A (PCR) (Neg) Influenza Type B (PCR) (Neg) RSV (RT-PCR) (Neg) 12/02/21 Range/Units 00:15 WBC (4.8-10.8) K/uL RBC (4.2-5.4) M/uL Hgb (12.0-16.0) g/dL Hct (37-47) % MCV (80-100) fL MCH (25-34) pg MCHC (32-36) g/dL RDW Std Deviation (36.4-46.3) fL RDW Coeff of Allen (11.5-14.5) % Plt Count (130-400) K/uL MPV (7.4-10.4) fL Immature Gran % (Auto) % Neut % (Auto) % Lymph % (Auto) % [place] % (Auto) % Eos % (Auto) % Baso % (Auto) % Neut # (Auto) (1.4-6.5) K/uL Lymph # (Auto) (1.2-3.4) K/uL [place] # (Auto) (0.11-0.59) K/uL Eos # (Auto) (0-0.5) K/uL Baso # (Auto) (0-0.2) K/uL Immature Gran # (Auto) (0.00-0.02) K/uL Sodium (136-145) mmol/L Potassium (3.5-5.1) mmol/L Chloride (98-107) mmol/L Carbon Dioxide (21-32) mmol/L Anion Gap (3-11) BUN (6-23) mg/dl Creatinine (0.6-1.2) mg/dl Est Cr Clr Drug Dosing ml/min Est GFR ( Amer) ml/min Est GFR (Non-Af Amer) ml/min BUN/Creatinine Ratio (10-20) Glucose (70-99(Fasting)) mg/dl Calcium (8.5-10.1) mg/dl Total Bilirubin (0.2-1.0) mg/dl AST (13-39) U/L ALT (7-52) U/L Alkaline Phosphatase (34-104) U/L Troponin I (0-0.04) ng/ml B-Natriuretic Peptide (0-100) pg/ml Total Protein (6.0-8.3) gm/dl Albumin (3.4-5.0) gm/dl Globulin (2.5-4.0) gm/dl Albumin/Globulin Ratio (0.9-2) SARS-CoV-2 (PCR) NEGATIVE (Negative) Influenza Type A (PCR) Negative (Neg) Influenza Type B (PCR) Negative (Neg) RSV (RT-PCR) Negative (Neg) Administered Medications Ceftriaxone Sodium 2,000 mg/ (Dextrose) 70 mls @ 100 mls/hr IV Q24H [facility]; Protocol Stop: 12/09/21 04:59 Last Admin: 12/02/21 04:51 Dose: 100 mls/hr Documented by: [id number] Morphine Sulfate (Morphine Sulfate 4 Mg/Ml 1 Ml Carp\Vial) 3 mg IV Q3H PRN PRN Reason: Pain Stop: 12/16/21 04:18 Last Admin: 12/02/21 04:49 Dose: 3 mg Documented by: [id number] Discontinued Medications Albuterol (Albut/Ipratrop 3mg/0.5mg Neb 3 Ml Vial) 12 ml INH ONE STA Stop: 12/01/21 23:18 Last Admin: 12/01/21 23:34 Dose: 12 ml Documented by: [id number] Fentanyl Citrate (Fentanyl Citrate 100 Mcg/2 Ml Vial) 50 mcg IV NOW STA Stop: 12/01/21 23:18 Last Admin: 12/01/21 23:30 Dose: 50 mcg Documented by: [id number] Fentanyl Citrate (Fentanyl Citrate 100 Mcg/2 Ml Vial) 50 mcg IV NOW STA Stop: 12/02/21 01:07 Last Admin: 12/02/21 01:23 Dose: 50 mcg Documented by: [id number] Furosemide (Furosemide Inj 20 Mg/2 Ml Vial) 20 mg IV ONE ONE Stop: 12/02/21 04:16 Last Admin: 12/02/21 04:51 Dose: 20 mg Documented by: [id number] Discharge Plan Visit Data Chief Complaint: Shortness of Breath/Dyspnea ED Provider: Zaina Akhtar Discharge Problem: Left-sided chest pain, Acute exacerbation of chronic obstructive pulmonary disease Patient Disposition: Admitted As Inpatient Discharge Instructions Interventions: ED Discharge Assessment Last Done: 12/02/21 02:55
[2021-12-01] MEDS ORDERED: fentaNYL citrate 100 MCG/2 ML VIAL IV STA (23:17)
[2021-12-01] MEDS ORDERED: ALBUT/IPRATROP 3MG/0.5MG NEB 3 ML VIAL INH STA (23:17)
[2021-12-01 23:36] LABS: Basophils # (auto) 0.01 K/uL (0-0.2); Basophils % (auto) 0.1 %; Eosinophils # (auto) 0.01 K/uL (0-0.5); Eosinophils % (auto) 0.1 %; Hematocrit (blood only) 46.8 % (37-47); Hemoglobin 15.4 g/dL (12.0-16.0); Immature Granulocytes # (auto) 0.06 K/uL (0.00-0.02); Immature Granulocytes % (auto) 0.5 %; Lymphocytes # (auto) 2.09 K/uL (1.2-3.4); Lymphocytes % (auto) 18.3 %; Mean Corpuscular Hemoglobin 32.4 pg (25-34); Mean Corpuscular Hgb Conc 32.9 g/dL (32-36); Mean Corpuscular Volume 98.5 fL (80-100); Mean Platelet Volume 10.5 fL (7.4-10.4); Monocytes # (auto) 1.48 K/uL (0.11-0.59); Neutrophils # (auto) 7.76 K/uL (1.4-6.5); Platelet Count 224 K/uL (130-400); RDW Coefficient of Variation 15.5 % (11.5-14.5); RDW Standard Deviation 56.1 fL (36.4-46.3); Red Blood Count 4.75 M/uL (4.2-5.4); White Blood Count 11.41 K/uL (4.8-10.8)
[2021-12-02 00:01] LABS: Troponin I < 0.03 ng/ml (0-0.04)
[2021-12-02 00:08] LABS: Alanine Aminotransferase 47 U/L (7-52); Albumin Level 3.7 gm/dl (3.4-5.0); Alkaline Phosphatase 201 U/L (34-104); Anion Gap 8 (3-11); Aspartate Aminotransferase 24 U/L (13-39); Bilirubin,Total 0.8 mg/dl (0.2-1.0); Blood Urea Nitrogen 35 mg/dl (6-23); Calcium 9.4 mg/dl (8.5-10.1); Carbon Dioxide 30 mmol/L (21-32); Chloride 98 mmol/L (98-107); Creatinine Clr Calc Pharmacy 42.3 ml/min; Est GFR (African American) 56.6 ml/min; Est GFR (Non-African American) 48.9 ml/min; Globulin 3.6 gm/dl (2.5-4.0); Glucose 109 mg/dl (70-99(Fasting)); Potassium 4.5 mmol/L (3.5-5.1); Sodium 136 mmol/L (136-145); Total Protein 7.3 gm/dl (6.0-8.3)
[2021-12-02] MEDS ORDERED: fentaNYL citrate 100 MCG/2 ML VIAL IV STA (01:06)
[2021-12-02 01:45] LABS: Influenza A virus by PCR Negative (Neg); Influenza B virus by PCR Negative (Neg); RSV by PCR Negative (Neg); SARS CoV2 RNA(COVID-19) InHosp NEGATIVE (Negative)
[2021-12-02] MEDS ORDERED: NITROGLYCERIN SL 0.4 MG/TAB TAB SL PRN (04:05)
[2021-12-02] MEDS ORDERED: POLYETHYLENE (MIRALAX) 17 GM PACK PO PRN (04:05)
[2021-12-02] MEDS ORDERED: LORazepam 0.5 MG TAB PO PRN (04:05)
[2021-12-02] MEDS ORDERED: ONDANSETRON INJ 2 MG/ML 2 ML VIAL IV PRN (04:05)
[2021-12-02] MEDS ORDERED: FUROSEMIDE INJ 20 MG/2 ML VIAL IV ONE (04:15)
[2021-12-02] MEDS: MoRPHine SULFATE 4 MG/ML 1 ML CARP\\VIAL IV PRN (04:49)
[2021-12-02] MEDS: cefTRIAXone SODIUM 2,000 MG in DEXTROSE 5% 50 ML IV SCH (04:51)
[2021-12-02 05:53] LABS: Base Excess ABG 5.6 mEq/L (-9-1.8); HCO3 ABG 32 mmol/L (19-24); Oxygen Saturation ABG 94.7 % (90-95); PCO2 ABG 50 mmHg (35-46); PO2 ABG 71 mmHg (80-95); pH ABG 7.42 (7.35-7.45)
[2021-12-02 05:56] LABS: Allen Test Pos (Pos)
[2021-12-02] MEDS: DOXYCYCLINE HYCLATE 100 MG in DEXTROSE 5% 100 ML IV SCH ×2 (06:12→17:06)
[2021-12-02 06:13] LABS: Troponin I < 0.03 ng/ml (0-0.04)
[2021-12-02 06:23] LABS: Hematocrit (blood only) 44.9 % (37-47); Hemoglobin 14.9 g/dL (12.0-16.0); Immature Granulocytes # (auto) 0.05 K/uL (0.00-0.02); Immature Granulocytes % (auto) 0.4 %; Lymphocytes # (auto) 0.31 K/uL (1.2-3.4); Lymphocytes % (auto) 2.5 %; Mean Corpuscular Hemoglobin 32.4 pg (25-34); Mean Corpuscular Hgb Conc 33.2 g/dL (32-36); Mean Corpuscular Volume 97.6 fL (80-100); Monocytes # (auto) 0.32 K/uL (0.11-0.59); Monocytes % (auto) 2.6 %; Neutrophils # (auto) 11.48 K/uL (1.4-6.5); Neutrophils % (auto) 94.5 %; Platelet Count 212 K/uL (130-400); RDW Coefficient of Variation 15.7 % (11.5-14.5); White Blood Count 12.16 K/uL (4.8-10.8)
[2021-12-02 06:26] LABS: Anion Gap 10 (3-11); BUN Creatinine Ratio 32.4 (10-20); Blood Urea Nitrogen 34 mg/dl (6-23); Calcium 9.4 mg/dl (8.5-10.1); Carbon Dioxide 30 mmol/L (21-32); Chloride 98 mmol/L (98-107); Creatinine Clr Calc Pharmacy 42.4 ml/min; Est GFR (African American) 57.3 ml/min; Est GFR (Non-African American) 49.4 ml/min; Glucose 161 mg/dl (70-99(Fasting)); Magnesium 2.2 mg/dl (1.7-2.4); Potassium 4.2 mmol/L (3.5-5.1); Sodium 138 mmol/L (136-145)
[2021-12-02] MEDS ORDERED: XOPENEX/ATROVENT 1.25mg/0.5MG NEB COMBO NEB SCH (07:00)
[2021-12-02] MEDS: IPRATROPIUM BROMIDE NEB SOLN 0.02% 2.5 ML VIAL INH SCH ×3 (07:12→19:33)
[2021-12-02] MEDS: LEVALBUTEROL 1.25MG/0.5ML NEB INH SCH ×3 (07:12→19:33)
--- NOTE | 2021-12-02 07:16 | History and Physical Report ---
DATE OF ADMISSION: 12/02/2021. CHIEF COMPLAINT: Shortness of breath. HISTORY OF PRESENT ILLNESS: This is an 81-year-old female with past medical history significant for chronic respiratory failure on 3 liters of oxygen, history of multiple thyroid nodules, hyperlipidemia, history of COPD, organizing pneumonia, persistent asthma, history of multifocal pneumonia, chronic atrial fibrillation, chronic heart failure with preserved ejection fraction, hypertension, history of CAD, morbid obesity, GERD, chronic kidney disease stage III, osteoarthritis, compression deformity vertebrae, ambulatory dysfunction, anxiety. Presents with shortness of breath. The patient was recently in [facility] for 1 week for treatment for pneumonia and her CTA chest was done, there was no PE, but showing multifocal pneumonia and she was tachypneic requiring high oxygenation levels, and she received antibiotics. Pulmonary was consulted and pulmonary thinks it is organizing pneumonia and recommended a long taper of prednisone along with Bactrim for PJP prophylaxis, also recommended to stop amiodarone due to lung changes. 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 Denies any fevers. Chest pain is more when taking deep breath. No headache, no blurred visions. Has some runny nose, has some sore throat. Appetite is okay. No difficulty swallowing. No nausea, no abdominal pain. Normal bowel and bladder movements. Has swelling in the legs. Says the swelling in the legs is same, no change. ALLERGIES: RIVAROXABAN, ADHESIVE. PAST MEDICAL HISTORY: As mentioned above. PAST SURGICAL HISTORY: Bilateral knee arthroplasty, left carpal tunnel surgery, , bilateral cataract surgery, appendectomy, tonsillectomy, lumbar spinal fusion surgery, ultrasound-guided left breast biopsy. MEDICATIONS: The patient is on albuterol nebulization q. 6 hours p.r.n., aspirin 81 mg p.o. daily, calcium plus vitamin D one tablet p.o. b.i.d., Breo Ellipta 1 inhalation daily, Lasix 40 mg p.o. b.i.d., Mucinex 600 mg p.o. b.i.d. p.r.n., Ativan 0.5 mg p.o. t.i.d. p.r.n., magnesium oxide 400 mg p.o. daily, metoprolol tartrate 12.5 mg p.o. daily, potassium chloride 20 mEq p.o. b.i.d., prednisone long taper, Senokot S one tablet p.o. daily p.r.n., Bactrim one tablet p.o. a.m., Spiriva 18 mcg inhalation daily. FAMILY HISTORY: Significant for father has AAA rupture; mother has heart disease; daughter has obesity, thyroid disorder; sister has osteoarthritis; brother has osteoarthritis. SOCIAL HISTORY: , no smoking, no alcohol, no drug use. REVIEW OF SYSTEMS: As per HPI. Rest of review of systems is negative. PHYSICAL EXAMINATION: GENERAL: The patient is morbidly obese, not in acute distress. VITAL SIGNS: Temperature 36.3, pulse 100, respiratory rate 28, blood pressure 143/83, oxygen 95% on 7 liters. HEENT: Pupils equal, round and reactive to light. Oral mucosa moist. NECK: No JVD, no neck masses. CARDIOVASCULAR: S1 and S2 heard. Regular rate and rhythm. No murmur, no gallop. RESPIRATORY SYSTEM: Normal AP diameter. Tachypnea present. Mild bilateral rhonchi. No wheezing. ABDOMEN: Soft, bowel sounds present, nontender, no distention. CENTRAL NERVOUS SYSTEM: Alert and oriented. No facial droop. Speech is clear. Insight is good. Obeys simple commands. Moves extremities. EXTREMITIES: Bilateral lower extremity gross pedal edema present, no erythema seen. LABORATORY DATA: WBC 11.4, hemoglobin 15.4, hematocrit 46.8, platelets 224. Sodium 136, potassium 4.5, chloride 98, bicarbonate 30, BUN 35, creatinine 1.06, serum glucose 109, calcium 9.4, total bilirubin 0.8, AST 24, ALT 47, alkaline phosphatase 201. Troponin I less than 0.03. BNP 85. SARS-CoV-2 PCR negative. Influenza A and B PCR negative. RSV PCR negative. IMAGING DATA: Chest x-ray, possible multifocal pneumonia. Chest CT, results are pending. EKG: Sinus rhythm with sinus arrhythmia at a rate of 88, nonspecific ST changes. ASSESSMENT AND PLAN: This is an 81-year-old female who presents with shortness of breath. 1. [id number] respiratory failure:At home on 3 liters oxygen, currently requiring 6-7 liters of oxygen. Recently in the [facility], discharged in the afternoon. She was treated for multifocal pneumonia, seen by pulmonary, thought to have organizing pneumonia. Placed on long prednisone taper with Bactrim prophylaxis. Her respiratory failure could be from chronic obstructive pulmonary disease exacerbation, could be from congestive heart failure and also multifocal pneumonia. Empirically starting on Rocephin, doxycycline, IV Solu-Medrol 40 b.i.d., nebs around the clock and p.r.n. home inhalers. Will follow CT chest and consult pulmonary in the a.m. for further recommendations. Will get an ABG. 2. Chest discomfort, more on deep breath. Recently in [facility], she had CT chest with no pulmonary embolism, but the patient is also on Eliquis, so PE unlikely. Will follow serial enzymes, echocardiogram, and consult cardiology. Will keep n.p.o. until seen by cardiology. 3.Possible [id number] heart failure with preserved ejection fraction. Will give a small dose of Lasix IV 20. Will continue with home Lasix and potassium supplements. 4. Chronic atrial fibrillation, rate controlled with metoprolol. Amiodarone was stopped by pulmonary at [place] because of lung changes. 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 5. Hypertension: On diuretics and metoprolol. Will monitor the blood pressure. 6. Atherosclerotic heart disease of coronary artery: On aspirin, beta jr. 7. Morbid obesity: Needs counseling. 8. Chronic kidney disease stage III: Presently with creatinine of 1.06, will follow the labs. 9. Anxiety: On Ativan p.r.n. 10 Ambulatory dysfunction: PT, OT prior to discharge. 11. Deep venous thrombosis prophylaxis: On Eliquis. DISPOSITION: Admit to tele floor. Expect to discharge home and follow with family doctor. Level 1 full code. Job ID: [id number] MTDD
[2021-12-02 07:22] LABS: Appearance Urine Clear (Clear); Bacteria Urine Automated Negative (Negative); Bilirubin Urine Negative (Negative); Blood Urine 2+ (Negative); Color Urine Yellow; Glucose Urine UA Negative (Negative); Ketones Urine Negative (Negative); Leukocyte Esterase Urine Negative (Negative); Nitrite Urine Negative (Negative); Protein Urine Negative (Negative); Specific Gravity Urine 1.017 (1.000-1.030); Urobilinogen Urine Negative (Negative); pH Urine 5.5 (4.5-7.5)
--- NOTE | 2021-12-02 07:48 | XRay Report ---
XR chest 1V portable HISTORY: Dyspnea COMPARISON: Chest 11/13/2018. FINDINGS: No pneumothorax. No pleural effusions. The heart is mildly enlarged. There is progression o f the interstitial/vascular thickening suggestive of mild congestive change. There are few scattered patchy airspace opacities within the lungs. IMPRESSION: 1. Cardiomegaly with mild pulmonary vascular congestion. This has progressed in the interval. 2. There are few scattered patchy airspace opacities most pronounced at the lung bases. This could re present atelectasis or pneumonia. ACT 112: Negative or not required by law. Electronically signed by: Barry Lechuga M.D. 12/02/2021 7:47 AM
--- NOTE | 2021-12-02 08:13 | CT Scan Report ---
CT chest diagnostic wo con CLINICAL HISTORY: organizing pneumonia? TECHNIQUE: Multidetector row helical CT of the chest was performed. Coronal and sagittal reformations were obtained. Automated dose lowering techniques and/or adjustment according to patient size were u tilized for this exam. Comparison: Comparison is made to chest radiographs 05/27/2016 FINDINGS: Lungs and pleura: Atelectasis versus scarring is seen in the dependent portions of the lungs. Heart and pericardium: Cardiomegaly is seen. Mitral annular calcifications are noted. Vessels: The pulmonary trunk is enlarged measuring 33 mm. Mediastinum and luz: Subcentimeter lymph nodes are seen. Chest wall and lower neck: There is a 17 mm left thyroid nodule. Abdomen: Unremarkable. Bones: Compression fractures are seen at T4 and T5. Bilateral rib fractures are seen. In addition, there are likely subacute to chronic posterior rib fra ctures at the right fourth and fifth ribs as well as the left third rib. IMPRESSION: 1. Diffuse atelectasis versus scarring predominantly in the lower lobes. 2. Compression deformities in the T5 and T6 vertebral bodies, age indeterminate. Age-indeterminate r ib fractures of the posterior right fourth and fifth ribs and left third rib. Correlation with point tenderness is recommended. 3. Thyroid nodule which has been previously evaluated by ultrasound. ACT 112: Negative or not required by law. Electronically signed by: Elkin Brooks M.D. 12/02/2021 8:12 AM
[2021-12-02] MEDS ORDERED: FLUTICASONE/VILANTEROL 200/25MCG 14 PUFFS/INHALER INH SCH (09:00)
[2021-12-02] MEDS ORDERED: FUROSEMIDE 40 MG TAB PO SCH (09:00)
[2021-12-02] MEDS: ASPIRIN 81 MG ECTAB PO SCH (09:50)
[2021-12-02] MEDS: APIXABAN 5 MG TABLET PO SCH ×2 (09:50→21:40)
[2021-12-02] MEDS: MAGNESIUM OXIDE 400 MG TAB PO SCH (09:51)
[2021-12-02] MEDS: CALCIUM 600MG + VIT D 400 IU TAB PO SCH ×2 (09:51→21:40)
[2021-12-02] MEDS: POTASSIUM CHLORIDE CRTAB 20 MEQ TABCR PO SCH ×2 (09:52→17:05)
[2021-12-02] MEDS: METOPROLOL TARTRATE 25 MG TAB PO SCH ×2 (09:52→21:39)
[2021-12-02] MEDS: SULFAMETHOXAZOLE/TRIMETHOPRIM DS 800/160MG TAB PO SCH (09:53)
[2021-12-02] MEDS: ALBUTEROL 0.083% NEBU SOLN 3 ML VIAL INH PRN (10:12)
[2021-12-02] MEDS: UMECLIDINIUM BROMIDE 62.5MCG/BLISTER 7 PUFFS/INHALER INH SCH (10:52)
--- NOTE | 2021-12-02 11:28 | Cardiology Consultation ---
Date of Consultation December 02, 2021 Assessment & Plan (1) Acute respiratory failure: -likely an infectious or post infectious etiology. -may be a component of diastolic CHF. -would change Lasix to intravenous dosing. (2) Chest pain syndrome: -noncardiac chest pain. -history consistent with pleuritic chest pain. -no further cardiac evaluation necessary. (3) CHF (congestive heart failure): -may have a component of acute on chronic diastolic CHF. -as above, would change Lasix to intravenous dosing. (4) LVH (left ventricular hypertrophy): -mild to moderate LVH on prior echocardiogram. -has a dynamic LVOT obstruction (10-50 mmHg). (5) Atrial fibrillation: -tolerating rhythm control and long-term anticoagulation without difficulty. -continue Eliquis. -would restart amiodarone once her pulmonary status normalizes. History of Present Illness Attending Physician: Terry Zhang MD History of Present Illness Mrs. Frank is an 81-year-old female admitted earlier today with respiratory failure. This consultation was ordered to assist in her cardiac management. Of note, patient is well known to me from the outpatient setting. The patient was in her usual state of health until several weeks ago when she presented to the [facility] was diagnosed with hypoxia related to an organizing pneumonia. She spent over 1 week in the hospital. Her amiodarone was discontinued prior to her discharge. On return home, her pulmonary symptoms continued. She presented to our emergency room earlier today with shortness of breath at rest and complaints of pleuritic chest pain. The patient does carry history of chronic diastolic CHF. She has evidence of left ventricular hypertrophy and a dynamic left ventricular outflow tract obstruction. She was also diagnosed with paroxysmal atrial fibrillation back in October 2018. She underwent an electrical cardioversion and initiation of amiodarone therapy. Currently, patient is resting in bed complaining of shortness of breath. Past medical and surgical history 1. Hypertension 2. Hypercholesterolemia 3. Rhhp-mr-xzqaudwz left ventricle hypertrophy 4. Chronic diastolic CHF 5. Dynamic left ventricular outflow tract [id number]-49-89 mmHg 6. Paroxysmal atrial fibrillation 7. Mild mitral regurgitation 8. COPD 9. Chronic renal failure 10. GERD 11. Obesity 12. Obstructive sleep apnea 13. DJD 14. Spinal stenosis 15. Appendectomy 16. Bilateral TKR 17. Carpal tunnel release 18. L4-5 spinal fusion-April 2016 19. Tonsillectomy 20. Social history and lives with her No tobacco alcohol Family history Noncontributory Review of systems A 10 review systems was negative except that described above. Allergies Allergy/AdvReac Type Severity Reaction Status Date / Time rivaroxaban Allergy Unknown RASH Verified 08/10/21 14:23 adhesive AdvReac Mild TAPE - Verified 08/10/21 14:23 TEARS SKIN Home Medications Medication Instructions Recorded Confirmed Type Senna-S 1 tab PO DAILY PRN 12/02/21 12/02/21 History albuterol sulfate 2.5 mg INHALATION Q6 PRN 12/02/21 12/02/21 History apixaban 5 mg tablet (Eliquis) 5 mg PO BID 12/02/21 12/02/21 History aspirin 81 mg PO DAILY 12/02/21 12/02/21 History calcium carbonate 600 mg-vitamin 1 tab PO BID 12/02/21 12/02/21 History D3 5 mcg (200 unit) tablet fluticasone furoate 200 1 inh INHALATION DAILY 12/02/21 12/02/21 History mcg-vilanterol 25 mcg/dose inhalation powder (Breo Ellipta) furosemide 40 mg tablet 40 mg PO BID 12/02/21 12/02/21 History guaifenesin 600 mg tablet, 600 mg PO Q12H PRN 12/02/21 12/02/21 History extended release 12 hr (Mucinex) lorazepam 0.5 mg tablet (Ativan) 0.5 mg PO TID PRN 12/02/21 12/02/21 History magnesium oxide 400 mg PO DAILY 12/02/21 12/02/21 History metoprolol tartrate 25 mg tablet 12.5 mg PO BID 12/02/21 12/02/21 History potassium chloride 20 mEq 20 meq PO AMHS 12/02/21 12/02/21 History tablet,extended release prednisone 10 mg tablet 10 mg PO DIRECTED 12/02/21 12/02/21 History sulfamethoxazole 800 1 tab PO QAM 12/02/21 12/02/21 History mg-trimethoprim 160 mg tablet tiotropium bromide 18 mcg capsule 18 mcg INHALATION DAILY 12/02/21 12/02/21 History with inhalation device (Spiriva with HandiHaler) Patient History Medical History (Updated 12/02/21 @ 11:41 by Jas Archer MD) Asthma Atrial fibrillation CHF (congestive heart failure) Diastolic dysfunction Dyslipidemia GERD (gastroesophageal reflux disease) HTN (hypertension) LVH (left ventricular hypertrophy) Obesity Osteoarthritis Spinal stenosis at L4-L5 level Surgical History (Updated 07/12/19 @ 11:31 by Drea Mckoy) History of appendectomy History of arthroplasty of knee History of carpal tunnel surgery History of cataract extraction History of section x2 History of knee replacement, total bilateral History of spinal fusion L4-L5 Hx of tonsillectomy Family History (Updated 07/12/19 @ 11:38 by Drea Mckoy) Grandfather (Paternal) Cancer Lung cancer Father AAA (abdominal aortic aneurysm) Mother Myocardial infarction Hypertension Other Coronary heart disease No family history of bleeding disorder Thyroid disease Social History (Updated 07/12/19 @ 11:39 by Drea Cabe na Mala) Smoking Status: Never smoker Second Hand Exposure: Yes; Do You Dip or Chew Tobacco: No; Tobacco Cessation Education Requested by Patient: No Hx Alcohol Use: No Hx Substance Use: No Preferred Language: Canadian Communication Ability: Effective Merchandise Processor Required: No Beliefs That Will Affect Care: None marital status: Current Living Situation: Spouse and Family current occupational status: retired Other Information That Helps Us Care for You: No Feels Safe at Home: Yes Safety Concerns: Feels Safe At This Time Assistive Devices: Glasses and Walker Physical Exam Physical Exam: In general this is an obese white female in no acute distress. HEENT exam is negative. Neck is supple with full carotid upstrokes. There are no carotid bruits. No JVD. There is no thyromegaly. Cardiovascular exam reveals a regular rhythm with a 2/6 basal systolic ejection murmur. No S3 or S4. Lungs note coarse breath sounds throughout. Abdomen is soft and nontender without bruits. Extremities reveal intact radial artery and posterior tibial pulses bilaterally. There is trace pretibial edema Results & Data ([facility]) Vital Signs (Past 12 Hours) Vital Signs Temp Pulse Pulse Resp BP BP BP 12/02/21 10:13 93 H 22 12/02/21 07:33 36.4 C L 95 H 22 104/68 12/02/21 07:12 85 21 12/02/21 03:53 36.3 C L 100 H 28 H 143/83 H 12/02/21 03:00 98 H 19 124/100 12/02/21 02:30 99 H 24 131/89 04/06/22 02:00 97 H 25 H 129/112 H 12/02/21 01:14 106 H 22 126/76 12/02/21 01:00 12/02/21 00:30 94 H 24 116/91 12/02/21 00:10 91 H 19 12/02/21 00:00 89 16 12/01/21 23:50 96 H 23 12/01/21 23:40 91 H 19 12/01/21 23:39 88 24 12/01/21 23:30 91 H 28 H 12/01/21 23:23 36.8 C 90 24 123/83 12/01/21 23:22 88 23 123/83 12/01/21 23:21 92 H 24 12/01/21 23:20 97 H 26 H Pulse Ox 12/02/21 10:13 93 12/02/21 07:33 95 12/02/21 07:12 95 12/02/21 03:53 95 12/02/21 03:00 91 12/02/21 02:30 91 12/02/21 02:00 90 12/02/21 01:14 90 12/02/21 01:00 85 L 12/02/21 00:30 95 12/02/21 00:10 95 12/02/21 00:00 95 12/01/21 23:50 94 12/01/21 23:40 93 12/01/21 23:39 92 12/01/21 23:30 95 12/01/21 23:23 94 12/01/21 23:22 94 12/01/21 23:21 94 12/01/21 23:20 94 Laboratory Results CBC notes hemoglobin 14.9, hematocrit 44.9, white count 12.16, and platelet count 555325. Electrolytes note a sodium of 138, potassium 4.2, chloride 98, bicarb 30, BUN 34, creatinine 1.05, and glucose of 86. Troponin I levels undetectable at less than 0.03 x 2. TSH is elevated 8.5, but the free T4 is normal at 1.3. Diagnostic Findings EKG notes normal sinus rhythm with PACs and left ventricular hypertrophy. Chest x-ray notes cardiomegaly and pulmonary vascular congestion. Air space opacities at the bases may represent pneumonia. PG Care Time/CCT Total # of Minutes Spent Total Time Spent with Patient: Total time spent is greater than 50% in coordination of care (as documented) at patient's floor/unit and/or counseling patient: Coding Level of Care Code 16844 Initial Inpt Care Lvl 3 Diagnoses Acute respiratory failure J96.00 CHF (congestive heart failure) I50.9 LVH (left ventricular hypertrophy) I51.7 Atrial fibrillation I48.91 Chest pain syndrome R07.9
[2021-12-02] MEDS: ACETAMINOPHEN 325 MG TAB PO PRN (13:26)
--- NOTE | 2021-12-02 14:22 | XCELERA ---
[id number]
--- NOTE | 2021-12-02 14:35 | Hospitalist Progress Note ---
Date of Service December 02, 2021 Assessment & Plan (1) Acute diastolic heart failure: Plan: Patient is an 81 yr female who presents with shortness of breath. Wwobr-hg-rabpokp respiratory failure with Hypoxia: Acute on Chronic diastolic Heart failure Patient is on 2L at rest and 3L with activity at baseline --CXR:Cardiomegaly with mild pulmonary vascular congestion. This has progressed in the interval. There are few scattered patchy airspace opacities most pronounced at the lung bases. This could represent atelectasis or pneumonia. --ECHO: No significant valvular heart disease. Left ventricle systolic function is normal. Right ventricle systolic function is elevated at 30-40 mmHg Hold PO diuretics Start IV Lasix 40mg BID Daily weight, I/Os, fluid restriction Supplemental Oxygen as needed Monitor renal function/electrolytes Appreciate Cardiology Input Chest Pain Likely Pleuritic Origin Rib fractures of Right 4th, 5th and Left 3rd on CT Incentive Spirometry Negative Cardiac Enzymes Recently treated for Multifocal pneumonia Evaluated by Pulm at [facility] and though to have organizing pneumonia. Placed on long prednisone taper with Bactrim prophylaxis. Possible COPD Exacerbation --CT Chest:Diffuse atelectasis versus scarring predominantly in the lower lobes. Compression deformities in the T5 and T6 vertebral bodies, age indeterminate. Age-indeterminate rib fractures of the posterior right fourth and fifth ribs and left third rib. Correlation with point tenderness is recommended. --Normal Procalcitonin --Empirically started on Ceftriaxone, Doxycycline Also on Prednisone Consulted Pulmonology Continue home inhalers Chronic atrial fibrillation Continue metoprolol Amiodarone was discontinued by pulmonary at [place] because of lung changes. On Eliquis for anticoagulation Hypertension: On diuretics and metoprolol CAD On aspirin, Metoprolol Morbid obesity: BMI 43 Chronic kidney disease stage III: Monitor renal function Anxiety: On Ativan p.r.n. Ambulatory dysfunction: PT, OT prior to discharge. DVT Px: On Eliquis. Code Status Full code Admission and Anticipated Discharge Date Admission Date: December 02, 2021 Subjective Patient is seen and examined at bedside States having cough, shortness of breath Also reports having pleuritic chest pain Offers no other complaints Review of Systems Review of Systems: All systems reviewed & are unremarkable except as noted in Subjective Physical Exam Physical Exam: Physical Exam: Vitals signs as noted above General Appearance:Obese, no apparent distress Head: normocephalic, Atraumatic Eyes: normal inspection, EOMI Neck: supple, Trachea midline Respiratory/Chest: Coarse breath sounds, scattered wheezes, No accessory muscle use Cardiovascular: S1, S2, + murmur Abdomen/GI:Soft, Non tender, Bowel sounds present Extremities/Musculoskeletal:normal inspection, 2+ B/L LE edema Neurologic/Psych:AAOX3, grossly no focal neurological deficits Skin: normal color, warm Results & Data Results & Data ([facility]) Vital Signs (Past 12 Hours) Vital Signs Temp Pulse Pulse Resp BP BP BP 12/02/21 12:51 83 21 12/02/21 12:09 36.4 C L 93 H 20 121/80 12/02/21 10:13 93 H 22 12/02/21 07:33 36.4 C L 95 H 22 104/68 12/02/21 07:12 85 21 12/02/21 03:53 36.3 C L 100 H 28 H 143/83 H 12/02/21 03:00 98 H 19 124/100 Pulse Ox 12/02/21 12:51 92 12/02/21 12:09 92 12/02/21 10:13 93 12/02/21 07:33 95 12/02/21 07:12 95 12/02/21 03:53 95 12/02/21 03:00 91 Laboratory Results Short CBC 12/01/21 12/02/21 Range/Units 23:03 05:34 WBC 11.41 H 12.16 H (4.8-10.8) K/uL Hgb 15.4 14.9 (12.0-16.0) g/dL Hct 46.8 44.9 (37-47) % Plt Count 224 212 (130-400) K/uL BMP 12/01/21 12/02/21 23:03 05:34 Sodium 136 138 Potassium 4.5 4.2 Chloride 98 98 Carbon Dioxide 30 30 BUN 35 H 34 H Creatinine 1.06 1.05 Glucose 109 H 161 H Calcium 9.4 9.4 Cardiac Enzymes 12/01/21 12/02/21 12/02/21 Range/Units 23:03 05:34 10:14 Troponin I < 0.03 < 0.03 < 0.03 (0-0.04) ng/ml Liver Function 12/01/21 Range/Units 23:03 Total Bilirubin 0.8 (0.2-1.0) mg/dl AST 24 (13-39) U/L ALT 47 (7-52) U/L Alkaline Phosphatase 201 H (34-104) U/L Albumin 3.7 (3.4-5.0) gm/dl Urine 12/02/21 Range/Units 06:50 Urine Color Yellow Urine Appearance Clear (Clear) Urine pH 5.5 (4.5-7.5) Ur Specific [place] 1.017 (1.000-1.030) Urine Protein Negative (Negative) Urine Glucose (UA) Negative (Negative)
--- NOTE | 2021-12-02 14:50 | Pulmonary Consultation ---
Date of Consultation December 02, 2021 Assessment & Plan (1) Acute and chronic respiratory failure with hypoxia: (2) Atrial fibrillation with RVR: (3) CHF (congestive heart failure): (4) GERD (gastroesophageal reflux disease): (5) Obesity: Obesity classification: adult class 2 (BMI 35 - 39.9) Attending: Dr. Gunn Impression: 81-year-old female with history of hypoxia and pulmonary disease over the last 12 months. She has never had pulmonary function testing. She was however admitted for inpatient services and was seen by behavioral health professional at [facility]. He reports that she most likely has an organizing pneumonia and recommended prednisone taper as well as prophylactic treatment with Bactrim and follow-up in the outpatient clinic. Patient is scheduled for pulmonary function testing as well as outpatient pulmonary follow-up this month at [facility]. Patient has been chronically hypoxic and on supplemental oxygen for about the last 12 months. She is a lifelong non-smoker. She is vaccinated for Covid and reports never being positive for Covid. She denies any previous pulmonary disorders prior to this last 12 months. Recommendations: 1. Abnormal CT scan of the chest: * Patient empirically treated estrogens were hospital and continued on Bactrim at discharge * On admission here the patient was started on ceftriaxone as well as doxycycline and is now receiving triple antibiotic therapy * Can check sputum culture * And review of past notes, it appears as though procalcitonin is never been elevated. * Would consider de-escalation of antibiotics as patient's procalcitonin is negative here as well * Maintain negative fluid balance as tolerated. Increase activity as tolerated * Titrate supplemental oxygen as tolerated * Continue follow-up with [facility] on discharge 2. COPD/asthma: * Previously seen at [facility] pulmonary clinic 11/11/2021 with WILLAM Tapia * Lifetime non-smoker. No previous pulmonary disease prior to 12 months ago * Patient with no record of pulmonary function testing. However there was mention of spirometry with moderately reduced FVC from 11/04/2016. Only 2 of 7 pages were displayed. * Currently uses Brio Ellipta and Spiriva as prescribed over the last year. Patient also has a nebulizer and infrequently uses * Pulmonary function testing is currently scheduled in the pulmonary function lab at [facility] for 12/22/2021 * Pulmonary outpatient appointment scheduled with WILLAM Nichole with pulmonary medicine 12/22/2021 * Continue current inhaler regimen and prednisone taper as advised by [facility] pulmonology * Encourage follow-up with her appointment in [place] 3. Hypoxia: * Arterial blood gas reviewed. ABG pH 7.42, PCO2 50, PaO2 71, HCO3 32, SaO2 94.7%. * Patient appears to have compensated respiratory failure * Patient could benefit from CPAP therapy as she most likely has some aspect of obesity hypoventilation syndrome * Will start CPAP at 8 cm of water and titrate per protocol * Continue with outpatient work-up at [facility] with her pulmonary team Thank you very much for including us in the care of this patient. Please refer to Dr. Gunn's addendum for further recommendations. The pulmonary service will sign off at this time. Please have patient follow-up with [facility] pulmonary on discharge. History of Present Illness Reason for Consultation: Shortness of breath, question of organizing pneumonia Attending Physician: Terry Zhang MD History of Present Illness Attending: Dr. Gunn This is an 81-year-old female with a complicated past medical history which includes atrial fibrillation, COPD without pulmonary function testing, asthma without pulmonary function testing, hypertension, lower extremity edema, morbid obesity, osteoarthritis. She reports that she has had increasing difficulty with breathing for at least the last year. She has been placed on oxygen and is currently on 2-1/2 to 3 L/min at rest and at night. She reports that she has not seen a behavioral health professional but is scheduled to see one at [facility] in the near future. She has never had pulmonary function testing. She is vaccinated for Covid including a booster with [employer]. She has not had any Covid infection in the past. She is a lifelong non-smoker. She currently lives at home with her and her grandson who is 24 years old. No one else with similar pulmonary problems. Patient reports that she has had cardiac issues including atrial fibrillation, CAD and follows Dr. Archer from the [facility] and that is why she chose to come to [facility]. Patient seen in consultation during hospital stay via telehealth by Marquez Mann MD from the pulmonary thoracic service. Patient was just recently admitted to [facility] and discharged yesterday afternoon. The patient had worsening shortness of breath and chose to come to [place] emergency room for further evaluation. She was started on Bactrim, ceftriaxone, and doxycycline and given furosemide for diuresis. She continues to require 5 L of supplemental oxygen. Incentive spirometry has been ordered but not yet administered. Aspiration precautions are in place. Patient denies any hemoptysis. She has minimal cough. She has no sputum production. Chief complaint is chest and back pain when she coughs. She does have difficulty sitting up without abdominal and chest pain. Home medications include Breo Ellipta as well as Spiriva. Patient also has a nebulizer machine at home. She is not clear as to whether these help or not. Patient is a lifelong non-smoker. Symptoms began after having pneumonia in early 2020. CT chest 09/12/2021 IMPRESSION: 1. No pulmonary embolism. 2. Extensive multifocal pneumonia. . These imaging features are typical of, but not pathognomonic, for advanced Covid-19 infection. 3. Mediastinal lymphadenopathy, increased since prior study, may be reactive in the setting of acute pulmonary infection. Attention on follow-up imaging. 4. Dilated ascending aorta measures up to 4.4 cm. Dilated descending thoracic aorta measures up to 3.1 cm proximally. Recommend clinical assessment and follow-up. 5. Other (less critical/noncritical/incidental) findings as above; please refer to the body of report for further details. Echo 09/14/2021 Interpretation Summary The examination is limited quality but adequate for evaluation of the referral indication. The left ventricular wall motion is normal by limited analysis. All left ventricular segments are not visualized. The left ventricular systolic function is normal. The qualitative LV ejection fraction is 60-64% (normal). The right ventricular systolic function is qualitatively normal. Mild mitral regurgitation is present. The proximal ascending thoracic aorta is mildly enlarged. Allergies Allergy/AdvReac Type Severity Reaction Status Date / Time rivaroxaban Allergy Unknown RASH Verified 08/10/21 14:23 adhesive AdvReac Mild TAPE - Verified 08/10/21 14:23 TEARS SKIN Home Medications Medication Instructions Recorded Confirmed Type Senna-S 1 tab PO DAILY PRN 12/02/21 12/02/21 History albuterol sulfate 2.5 mg INHALATION Q6 PRN 12/02/21 12/02/21 History apixaban 5 mg tablet (Eliquis) 5 mg PO BID 12/02/21 12/02/21 History aspirin 81 mg PO DAILY 12/02/21 12/02/21 History calcium carbonate 600 mg-vitamin 1 tab PO BID 12/02/21 12/02/21 History D3 5 mcg (200 unit) tablet fluticasone furoate 200 1 inh INHALATION DAILY 12/02/21 12/02/21 History mcg-vilanterol 25 mcg/dose inhalation powder (Breo Ellipta) furosemide 40 mg tablet 40 mg PO BID 12/02/21 12/02/21 History guaifenesin 600 mg tablet, 600 mg PO Q12H PRN 12/02/21 12/02/21 History extended release 12 hr (Mucinex) lorazepam 0.5 mg tablet (Ativan) 0.5 mg PO TID PRN 12/02/21 12/02/21 History magnesium oxide 400 mg PO DAILY 12/02/21 12/02/21 History metoprolol tartrate 25 mg tablet 12.5 mg PO BID 12/02/21 12/02/21 History potassium chloride 20 mEq 20 meq PO AMHS 12/02/21 12/02/21 History tablet,extended release prednisone 10 mg tablet 10 mg PO DIRECTED 12/02/21 12/02/21 History sulfamethoxazole 800 1 tab PO QAM 12/02/21 12/02/21 History mg-trimethoprim 160 mg tablet tiotropium bromide 18 mcg capsule 18 mcg INHALATION DAILY 12/02/21 12/02/21 History with inhalation device (Spiriva with HandiHaler) Patient History Medical History Asthma Atrial fibrillation CHF (congestive heart failure) Diastolic dysfunction Dyslipidemia GERD (gastroesophageal reflux disease) HTN (hypertension) LVH (left ventricular hypertrophy) Obesity Osteoarthritis Spinal stenosis at L4-L5 level Surgical History History of appendectomy History of arthroplasty of knee History of carpal tunnel surgery History of cataract extraction History of section x2 History of knee replacement, total bilateral History of spinal fusion L4-L5 Hx of tonsillectomy Family History Grandfather (Paternal) Cancer Lung cancer Father AAA (abdominal aortic aneurysm) Mother Myocardial infarction Hypertension Other Coronary heart disease No family history of bleeding disorder Thyroid disease Social History Smoking Status: Never smoker Second Hand Exposure: Yes; Do You Dip or Chew Tobacco: No; Tobacco Cessation Education Requested by Patient: No Hx Alcohol Use: No Hx Substance Use: No Preferred Language: Slovenian Communication Ability: Effective Tobacco Blender Required: No Beliefs That Will Affect Care: None marital status: Current Living Situation: Spouse and Family current occupational status: retired How many Children do You have: 4 Other Information That Helps Us Care for You: No Feels Safe at Home: Yes Safety Concerns: Feels Safe At This Time Assistive Devices: Cane, Oxygen - Continuous and Walker Review of Systems Review of Systems: A total of 10 systems was reviewed and is negative other than as listed in the HPI Physical Exam Physical Exam: GENERAL : No acute distress EYES: No icterus, gaze conjugate NOSE: No evidence of epistaxis MOUTH: No lesions or candidiasis NECK: Supple LUNGS: Diffuse wheezes in all richter. Patient does have some discomfort with deep breath. Reproducible chest pain with palpation in the lower richter. HEART: Regular, rate controlled ABDOMEN: Soft, NT, ND, BS Present EXTREMITIES: Right lower extremity edema, pedal pulses intact and equal bilaterally NEURO: A&OX3 Results & Data Results & Data ([facility]) Vital Signs (Past 12 Hours) Vital Signs Temp Pulse Pulse Resp BP BP BP 12/02/21 12:51 83 21 12/02/21 12:09 36.4 C L 93 H 20 121/80 12/02/21 10:13 93 H 22 12/02/21 07:33 36.4 C L 95 H 22 104/68 12/02/21 07:12 85 21 12/02/21 03:53 36.3 C L 100 H 28 H 143/83 H 12/02/21 03:00 98 H 19 124/100 Pulse Ox 12/02/21 12:51 92 12/02/21 12:09 92 12/02/21 10:13 93 12/02/21 07:33 95 12/02/21 07:12 95 12/02/21 03:53 95 12/02/21 03:00 91 Critical Care Results & Data Vital Signs (Past 12 Hours) Vital Signs Temp Pulse Pulse Resp BP BP Pulse Ox 12/02/21 14:52 91 H 12/02/21 12:51 83 21 92 12/02/21 12:09 36.4 C L 93 H 20 121/80 92 12/02/21 10:13 93 H 22 93 12/02/21 08:00 94 H 12/02/21 07:33 36.4 C L 95 H 22 104/68 95 12/02/21 07:12 85 21 95 12/02/21 03:53 36.3 C L 100 H 28 H 143/83 H 95 Lab & Micro Results (Past 24 Hours) RBC 4.60 M/uL (4.2-5.4) 12/02/21 WBC 12.16 K/uL (4.8-10.8) H 12/02/21 Hgb 14.9 g/dL (12.0-16.0) 12/02/21 Hct 44.9 % (37-47) 12/02/21 MCV 97.6 fL (80-100) 12/02/21 MCH 32.4 pg (25-34) 12/02/21 MCHC 33.2 g/dL (32-36) 12/02/21 RDW Standard Deviation 56.0 fL (36.4-46.3) H 12/02/21 RDW Coefficient of Variation 15.7 % (11.5-14.5) H 12/02/21 Plt Count 212 K/uL (130-400) 12/02/21 MPV 11.0 fL (7.4-10.4) H 12/02/21 Neutrophils (%) (Auto) 94.5 % 12/02/21 Lymphocytes (%) (Auto) 2.5 % 12/02/21 Monocytes # (Auto) 0.32 K/uL (0.11-0.59) 12/02/21 Eosinophils # (Auto) 0.00 K/uL (0-0.5) 12/02/21 Immature Granulocyte % (Auto) 0.4 % 12/02/21 Neutrophils # (Auto) 11.48 K/uL (1.4-6.5) H 12/02/21 Lymphocytes # (Auto) 0.31 K/uL (1.2-3.4) L 12/02/21 Monocytes # (Auto) 0.32 K/uL (0.11-0.59) 12/02/21 Eosinophils # (Auto) 0.00 K/uL (0-0.5) 12/02/21 Basophils # (Auto) 0.00 K/uL (0-0.2) 12/02/21 Immature Granulocyte # (Auto) 0.05 K/uL (0.00-0.02) H 12/02/21 Na 138 mmol/L (136-145) 12/02/21 K 4.2 mmol/L (3.5-5.1) 12/02/21 Cl 98 mmol/L (98-107) 12/02/21 CO2 30 mmol/L (21-32) 12/02/21 Anion Gap 10 (3-11) 12/02/21 BUN 34 mg/dl (6-23) H 12/02/21 Creatinine 1.05 mg/dl (0.6-1.2) 12/02/21 Estimated GFR ( Amer) 57.3 ml/min 12/02/21 Estimated GFR (Non-Af Amer) 49.4 ml/min 12/02/21 BUN/Creatinine Ratio 32.4 (10-20) H 12/02/21 Glu 161 mg/dl (70-99(Fasting)) H 12/02/21 Ca 9.4 mg/dl (8.5-10.1) 12/02/21 Total Bilirubin 0.8 mg/dl (0.2-1.0) 12/01/21 AST 24 U/L (13-39) 12/01/21 ALT 47 U/L (7-52) 12/01/21 Alkaline Phosphatase 201 U/L (34-104) H 12/01/21 TP 7.3 gm/dl (6.0-8.3) 12/01/21 Albumin 3.7 gm/dl (3.4-5.0) 12/01/21 Globulin 3.6 gm/dl (2.5-4.0) 12/01/21 Albumin/Globulin Ratio 1.0 (0.9-2) 12/01/21 Mg 2.2 mg/dl (1.7-2.4) 12/02/21 05:34 12/02/21 Calcium Level 9.4 mg/dl (8.5-10.1) 12/02/21 05:34 12/02/21 Blood Gas Barometric Pressure 724.0 mm/Hg 12/02/21 05:41 12/02/21 Arterial Blood pH 7.42 (7.35-7.45) 12/02/21 05:41 12/02/21 Arterial Blood Partial Pressure CO2 50 mmHg (35-46) H 12/02/21 05:41 12/02/21 Arterial Blood Partial Pressure O2 71 mmHg (80-95) L 12/02/21 05:41 12/02/21 Arterial Blood HCO3 32 mmol/L (19-24) H 12/02/21 05:41 12/02/21 Arterial Blood Base Excess 5.6 mEq/L (-9-1.8) H 12/02/21 05:41 12/02/21 Arterial Blood Oxygen Saturation 94.7 % (90-95) 12/02/21 05:41 12/02/21 Blood Gas Oxygen Given ROOM AIR 12/02/21 05:41 12/02/21 Abbe Test Pos (Pos) 12/02/21 05:41 12/02/21 Blood Gas Barometric Pressure 724.0 mm/Hg 12/02/21 05:41 12/02/21 Diagnostic Findings (Past 24 Hours) Chest X-Ray 12/01/21 23:17 XR chest 1V portable HISTORY: Dyspnea COMPARISON: Chest 11/13/2018. FINDINGS: No pneumothorax. No pleural effusions. The heart is mildly enlarged. There is progression of the interstitial/vascular thickening suggestive of mild congestive change. There are few scattered patchy airspace opacities within the lungs. IMPRESSION: 1. Cardiomegaly with mild pulmonary vascular congestion. This has progressed in the interval. 2. There are few scattered patchy airspace opacities most pronounced at the lung bases. This could represent atelectasis or pneumonia. ACT 112: Negative or not required by law. Electronically signed by: Barry Lechuga M.D. 12/02/2021 7:[address] 12/02/21 01:57 CT chest diagnostic wo con CLINICAL HISTORY: organizing pneumonia? TECHNIQUE: Multidetector row helical CT of the chest was performed. Coronal and sagittal reformations were obtained. Automated dose lowering techniques and/or adjustment according to patient size were utilized for this exam. Comparison: Comparison is made to chest radiographs 05/27/2016 FINDINGS: Lungs and pleura: Atelectasis versus scarring is seen in the dependent portions of the lungs. Heart and pericardium: Cardiomegaly is seen. Mitral annular calcifications are noted. Vessels: The pulmonary trunk is enlarged measuring 33 mm. Mediastinum and luz: Subcentimeter lymph nodes are seen. Chest wall and lower neck: There is a 17 mm left thyroid nodule. Abdomen: Unremarkable. Bones: Compression fractures are seen at T4 and T5. Bilateral rib fractures are seen. In addition, there are likely subacute to chronic posterior rib fractures at the right fourth and fifth ribs as well as the left third rib. IMPRESSION: 1. Diffuse atelectasis versus scarring predominantly in the lower lobes. 2. Compression deformities in the T5 and T6 vertebral bodies, age indeterminate. Age-indeterminate rib fractures of the posterior right fourth and fifth ribs and left third rib. Correlation with point tenderness is recommended. 3. Thyroid nodule which has been previously evaluated by ultrasound. ACT 112: Negative or not required by law. Electronically signed by: Elkin Brooks M.D. 12/02/2021 8:12 AM I & O Totals 24 Hours 12/01/21 12/02/21 12/03/21 06:59 06:59 06:59 Intake Total 70 / 70 110 / 110 Output Total 475 / 475 350 / 350 Balance -405 / -405 -240 / -240 Cumulative 12/01/21 21:20 thru 12/02/21 14:00 Intake Total 180 Output Total 825 Balance -645 RT Ventilator Mngmt (Last Documented) Ventilator Ordered Settings Respiratory Rate 21 12/02/21 12:51 Ventilator - PT Measurements Respiratory Rate 21 PG Care Time/CCT Total # of Minutes Spent Total Time Spent with Patient: Total time spent is greater than 50% in coordination of care (as documented) at patient's floor/unit and/or counseling patient:45 minutes Coding Level of Care Code 11235 Inpt Consult Level 4 Diagnoses Acute and chronic respiratory failure with hypoxia J96.21 Atrial fibrillation with RVR I48.91 CHF (congestive heart failure) I50.9 GERD (gastroesophageal reflux disease) K21.9 Obesity E66.9 Obesity classification: adult class 2 (BMI 35 - 39.9) Time Spent (min) 45
[2021-12-02] MEDS: FUROSEMIDE 40 MG/4 ML VIAL IV SCH (21:40)
[2021-12-03] MEDS: LEVALBUTEROL 1.25MG/0.5ML NEB INH SCH ×4 (00:01→19:50)
[2021-12-03] MEDS: IPRATROPIUM BROMIDE NEB SOLN 0.02% 2.5 ML VIAL INH SCH ×4 (00:01→19:51)
[2021-12-03] MEDS: cefTRIAXone SODIUM 2,000 MG in DEXTROSE 5% 50 ML IV SCH (05:16)
[2021-12-03] MEDS: MoRPHine SULFATE 4 MG/ML 1 ML CARP\\VIAL IV PRN (05:25)
[2021-12-03] MEDS: DOXYCYCLINE HYCLATE 100 MG in DEXTROSE 5% 100 ML IV SCH (06:08)
--- NOTE | 2021-12-03 06:54 | Electrocardiogram Report ---
Test Reason : Blood Pressure : / mmHG Vent. Rate : 088 BPM Atrial Rate : 088 BPM P-R Int : 176 ms QRS Dur : 096 ms QT Int : 374 ms P-R-T Axes : 077 -08 050 degrees QTc Int : 452 ms Sinus rhythm with marked sinus arrhythmia Minimal voltage criteria for LVH, may be normal variant Borderline ECG When compared with ECG of 10-NOV-2018 06:17, ST no longer depressed in Anterior leads Nonspecific T wave abnormality no longer evident in Inferior leads T wave inversion no longer evident in Lateral leads Confirmed by Brad Prince ([id number]) on 12/03/2021 6:53:51 AM Referred By: REFERRED SELF Confirmed By:Brad Prince
[2021-12-03 07:03] LABS: Hematocrit (blood only) 44.6 % (37-47); Hemoglobin 14.6 g/dL (12.0-16.0); Mean Corpuscular Hemoglobin 32.4 pg (25-34); Mean Corpuscular Hgb Conc 32.7 g/dL (32-36); Mean Corpuscular Volume 98.9 fL (80-100); Platelet Count 204 K/uL (130-400); RDW Coefficient of Variation 15.9 % (11.5-14.5); RDW Standard Deviation 57.8 fL (36.4-46.3); Red Blood Count 4.51 M/uL (4.2-5.4); White Blood Count 11.39 K/uL (4.8-10.8)
--- NOTE | 2021-12-03 07:04 | Electrocardiogram Report ---
Test Reason : Blood Pressure : / mmHG Vent. Rate : 095 BPM Atrial Rate : 095 BPM P-R Int : 180 ms QRS Dur : 094 ms QT Int : 378 ms P-R-T Axes : 075 -05 064 degrees QTc Int : 475 ms Sinus rhythm with Premature atrial complexes Minimal voltage criteria for LVH, may be normal variant Cannot rule out Anterior infarct , age undetermined Abnormal ECG When compared with ECG of 01-DEC-2021 23:00, (unconfirmed) No significant change Confirmed by Brad Prince ([id number]) on 12/03/2021 7:04:04 AM Referred By: REFERRED SELF Confirmed By:Brad Prince
[2021-12-03 07:05] LABS: Est GFR (African American) 57.9 ml/min; Potassium 3.9 mmol/L (3.5-5.1)
[2021-12-03 07:06] LABS: BUN Creatinine Ratio 27.9 (10-20); Calcium 9.6 mg/dl (8.5-10.1); Creatinine Clr Calc Pharmacy 42.9 ml/min
--- NOTE | 2021-12-03 08:51 | Pulmonology Progress Note ---
Date of Service December 03, 2021 Assessment & Plan (1) Acute and chronic respiratory failure with hypoxia: (2) Atrial fibrillation with RVR: (3) CHF (congestive heart failure): (4) GERD (gastroesophageal reflux disease): (5) Obesity: Obesity classification: adult class 2 (BMI 35 - 39.9) Plan: Impression: 81-year-old female with history of hypoxia and pulmonary disease over the last 12 months. She has never had pulmonary function testing. She was however admitted for inpatient services and was seen by microeconomics professor at [facility]. He reports that she most likely has an organizing pneumonia and recommended prednisone taper as well as prophylactic treatment with Bactrim and follow-up in the outpatient clinic. Patient is scheduled for pulmonary function testing as well as outpatient pulmonary follow-up this month at [facility]. Patient has been chronically hypoxic and on supplemental oxygen for about the last 12 months. She is a lifelong non-smoker. She is vaccinated for Covid and reports never being positive for Covid. She denies any previous pulmonary disorders prior to this last 12 months. Recommendations: 1. Abnormal CT scan of the chest: CTs from [facility] were reviewed and her current imaging appears significantly improved from previous. The etiology is unclear and possibilities would include infectious, inflammatory etiologies. Cannot rule out component of atypical edema. Agree with empiric diuretics, currently on 40 mg of Lasix IV twice daily. We will try and target 1 to 2 L negative every 24 hours. She is about 1 L negative over the last 24 hours. If she fails to respond, addition of Aldactone or metolazone may be appropriate. Do not think this is infectious with a normal procalcitonin and Rocephin and doxycycline will be discontinued given the lack of fevers, normal procalcitonin, and normal white blood cell count as well as the fact the patient just completed an extended course of antibiotics at [facility]. She has been empirically placed on prednisone by the [facility] pulmonary group for presumptive organizing pne umonia. At this point time it seems reasonable to continue although the therapy is empiric. Will defer to [facility] long-term management of immune suppression. 2. COPD/asthma: Diagnosis is somewhat unclear. Her previous spirometry from [facility] was reviewed and demonstrated a restrictive process rather than airflow obstruction. Unclear if this could represent tracheobronchial malacia. She does have hypercarbia and requires an outpatient sleep study as she likely has obesity hypoventilation syndrome. The patient is taking both benzodiazepines and narcotics which could potentially aggravate hypercarbic respiratory failure and clinical correlation is recommended. May require bilevel. Continue nocturnal empiric CPAP at night while here in the hospital. Outpatient PFTs and follow-up with [facility]. We will transition her to Perforomist budesonide and continue her Incruse. 3. Hypoxia: Continue oxygen titrated to keep saturations at or above 89%. The patient is hypoxemic due to combinations of hypercarbia as well as structural lung disease and restrictive lung disease due to body habitus. Exercise and weight loss were recommended. 4. Out of bed to chair and ambulatory as much as possible. Incentive spirometry 10 times an hour while awake. Exercise and weight loss ultimately recommended. We will continue to follow with you Admission and Anticipated Discharge Date Admission Date: December 02, 2021 Subjective Patient seen and examined. Discussed with critical care/pulmonary SAL yesterday. Chart reviewed. The patient used CPAP/BiPAP last evening. She is unclear if it made her any better. She feels fatigued this morning. She is on nasal cannula. She is mildly tachypneic. She is not coughing or expectorating phlegm. She continues to have significant lower extremity edema. Review of Systems Review of Systems: All systems reviewed & are unremarkable except as noted in Subjective Physical Exam Physical Exam: GENERAL : No acute distress EYES: No icterus, gaze conjugate NOSE: No evidence of epistaxis MOUTH: No lesions or candidiasis NECK: Supple LUNGS: Diffuse wheezes in all richter. Patient does have some discomfort with deep breath. Reproducible chest pain with palpation in the lower richter. HEART: Regular, rate controlled ABDOMEN: Soft, NT, ND, BS Present EXTREMITIES: Right lower extremity edema, pedal pulses intact and equal bilaterally NEURO: A&OX3 Results & Data Results & Data ([facility]) Vital Signs (Past 12 Hours) Vital Signs Temp Pulse Pulse Resp BP Pulse Ox 12/03/21 08:00 36.8 C 89 16 123/64 97 12/03/21 07:04 88 22 93 12/03/21 04:00 37.1 C 87 14 126/87 94 12/03/21 00:28 36.4 C L 75 16 125/87 95 12/03/21 00:01 87 18 96 12/02/21 22:17 97 H Laboratory Results 12/03/21 06:17 12/03/21 06:17 12/02/21 05:41 ABG pH 7.42 ABG pCO2 50 H ABG pO2 71 L ABG HCO3 32 H ABG O2 Saturation 94.7 ABG Base Excess 5.6 H BNP 178 Diagnostic Findings No new imaging PG Care Time/CCT Total # of Minutes Spent Total Time Spent with Patient: Total time spent is greater than 50% in coordination of care (as documented) at patient's floor/unit and/or counseling patient: Coding Level of Care Code 71981 Subseq Hosp Care Lvl 3 Diagnoses Acute and chronic respiratory failure with hypoxia J96.21 Atrial fibrillation with RVR I48.91 CHF (congestive heart failure) I50.9 GERD (gastroesophageal reflux disease) K21.9 Obesity E66.9 Obesity classification: adult class 2 (BMI 35 - 39.9)
[2021-12-03] MEDS: SULFAMETHOXAZOLE/TRIMETHOPRIM DS 800/160MG TAB PO SCH (09:03)
[2021-12-03] MEDS: UMECLIDINIUM BROMIDE 62.5MCG/BLISTER 7 PUFFS/INHALER INH SCH (09:03)
[2021-12-03] MEDS: METOPROLOL TARTRATE 25 MG TAB PO SCH ×2 (09:03→20:33)
[2021-12-03] MEDS: POTASSIUM CHLORIDE CRTAB 20 MEQ TABCR PO SCH ×2 (09:03→17:10)
[2021-12-03] MEDS: MAGNESIUM OXIDE 400 MG TAB PO SCH (09:03)
[2021-12-03] MEDS: predniSONE 20 MG TAB PO SCH (09:03)
[2021-12-03] MEDS: CALCIUM 600MG + VIT D 400 IU TAB PO SCH ×2 (09:04→20:34)
[2021-12-03] MEDS: APIXABAN 5 MG TABLET PO SCH ×2 (09:04→20:34)
[2021-12-03] MEDS: ASPIRIN 81 MG ECTAB PO SCH (09:04)
--- NOTE | 2021-12-03 09:28 | Electrocardiogram Report ---
Test Reason : Blood Pressure : / mmHG Vent. Rate : 093 BPM Atrial Rate : 093 BPM P-R Int : 180 ms QRS Dur : 084 ms QT Int : 404 ms P-R-T Axes : -10 -11 055 degrees QTc Int : 502 ms Poor data quality, interpretation may be adversely affected Sinus rhythm with Premature atrial complexes Voltage criteria for left ventricular hypertrophy Abnormal ECG When compared with ECG of 02-DEC-2021 08:45, No significant change Confirmed by Justin Helton ([id number]) on 12/03/2021 9:27:46 AM Referred By: REFERRED SELF Confirmed By:Justin Helton
--- NOTE | 2021-12-03 09:56 | Cardiology Progress Note ---
Date of Service December 03, 2021 Assessment & Plan (1) Acute respiratory failure: Plan: -likely an infectious or post infectious etiology. -may be a component of diastolic CHF. -continue IV Lasix until BUN/creatinine increase significantly. (2) Chest pain syndrome: Plan: -noncardiac chest pain. -troponin undetectable x3. -history consistent with pleuritic chest pain. -no further cardiac evaluation necessary. (3) CHF (congestive heart failure): Plan: -may have a component of acute on chronic diastolic CHF. -as above, continue intravenous Lasix. (4) LVH (left ventricular hypertrophy): Plan: -mild to moderate LVH on current echocardiogram (by my review). -dynamic LVOT obstruction of 25 mmHg on current echocardiogram. (5) Atrial fibrillation: Plan: -tolerating rhythm control and long-term anticoagulation without difficulty. -continue Eliquis. -amiodarone currently on hold. -would restart amiodarone once her pulmonary status normalizes. Admission and Anticipated Discharge Date Admission Date: December 02, 2021 Subjective The patient is resting comfortably in bed complaints of chest pain. Her dyspnea has improved. Remains on supplemental oxygen. Physical Exam Physical Exam: In general this is an obese white female in no acute distress. HEENT exam is negative. Neck is supple with full carotid upstrokes. There are no carotid bruits. No JVD. There is no thyromegaly. Cardiovascular exam reveals a regular rhythm with a 2/6 basal systolic ejection murmur. No S3 or S4. Lungs note coarse breath sounds throughout. Abdomen is soft and nontender without bruits. Extremities reveal intact radial artery and posterior tibial pulses bilaterally. 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 No atrial fibrillation. PG Care Time/CCT Total # of Minutes Spent Total Time Spent with Patient: Total time spent is greater than 50% in coordination of care (as documented) at patient's floor/unit and/or counseling patient: Coding Level of Care Code 58373 Subseq Hosp Care Lvl 3 Diagnoses Acute respiratory failure J96.00 Chest pain syndrome R07.9 CHF (congestive heart failure) I50.9 LVH (left ventricular hypertrophy) I51.7 Atrial fibrillation I48.91
[2021-12-03] MEDS: FUROSEMIDE 40 MG/4 ML VIAL IV SCH ×2 (10:19→20:38)
--- NOTE | 2021-12-03 16:28 | Hospitalist Progress Note ---
Date of Service December 03, 2021 Assessment & Plan (1) Acute diastolic heart failure: Plan: Patient is an 81 yr female who presents with shortness of breath. [id number] respiratory failure with Hypoxia: Acute on Chronic diastolic Heart failure Patient is on 2L at rest and 3L with activity at baseline --CXR:Cardiomegaly with mild pulmonary vascular congestion. This has progressed in the interval. There are few scattered patchy airspace opacities most pronounced at the lung bases. This could represent atelectasis or pneumonia. --ECHO: No significant valvular heart disease. Left ventricle systolic function is normal. Right ventricle systolic function is elevated at 30-40 mmHg Hold PO diuretics Continue IV Lasix 40mg BID Daily weight, I/Os, fluid restriction Supplemental Oxygen as needed Monitor renal function/electrolytes Appreciate Cardiology Input Continue Diuresis Chest Pain Likely Pleuritic Origin Rib fractures of Right 4th, 5th and Left 3rd on CT Incentive Spirometry Negative Cardiac Enzymes Recently treated for Multifocal pneumonia Suspected tracheobronchial malacia/obesity hypoventilation syndrome Evaluated by Pulm at [facility] and though to have organizing pneumonia. Placed on long prednisone taper with Bactrim prophylaxis. Possible COPD Exacerbation --CT Chest:Diffuse atelectasis versus scarring predominantly in the lower lobes. Compression deformities in the T5 and T6 vertebral bodies, age indeterminate. Age-indeterminate rib fractures of the posterior right fourth and fifth ribs and left third rib. Correlation with point tenderness is recommended. --Normal Procalcitonin --Empirically started on Ceftriaxone, Doxycycline>> discontinued as per pulmonary recommendations Also on Prednisone Consulted Pulmonology Continue home inhalers Needs Outpatient Sleep Study, PFTs CPAP at bedtime. Started on Pulmicort, Perforomist Titrate oxygen to keep saturations 88-92% Chronic atrial fibrillation Continue metoprolol Amiodarone was discontinued by pulmonary at [facility] because of lung changes. On Eliquis for anticoagulation Hypertension: On diuretics and metoprolol CAD On aspirin, Metoprolol Morbid obesity: BMI 43 Chronic kidney disease stage III: Monitor renal function Anxiety: On Ativan p.r.n. Ambulatory dysfunction: PT, OT prior to discharge. DVT Px: On Eliquis. Code Status Full code Admission and Anticipated Discharge Date Admission Date: December 02, 2021 Subjective Patient is seen and examined at bedside Less dyspnea, cough today Reports chest discomfort with cough No other complaints Review of Systems Review of Systems: All systems reviewed & are unremarkable except as noted in Subjective Physical Exam Physical Exam: Physical Exam: Vitals signs as noted above General Appearance:Obese, no apparent distress Head: normocephalic, Atraumatic Eyes: normal inspection, EOMI Neck: supple, Trachea midline Respiratory/Chest: Coarse breath sounds, scattered wheezes, No accessory muscle use Cardiovascular: S1, S2, + murmur Abdomen/GI:Soft, Non tender, Bowel sounds present Extremities/Musculoskeletal:normal inspection, 2+ B/L LE edema Neurologic/Psych:AAOX3, grossly no focal neurological deficits Skin: normal color, warm Results & Data Results & Data ([facility]) Vital Signs (Past 12 Hours) Vital Signs Temp Pulse Pulse Resp BP Pulse Ox 12/03/21 16:00 92 H 12/03/21 13:01 90 16 90 12/03/21 12:44 37.0 C 76 18 105/60 98 12/03/21 11:00 93 12/03/21 08:00 36.8 C 89 16 123/64 97 12/03/21 07:58 90 12/03/21 07:04 88 22 93 Laboratory Results Short CBC 12/03/21 Range/Units 06:17 WBC 11.39 H (4.8-10.8) K/uL Hgb 14.6 (12.0-16.0) g/dL Hct 44.6 (37-47) % Plt Count 204 (130-400) K/uL BMP 12/03/21 06:17 Sodium 140 Potassium 3.9 Chloride 98 Carbon Dioxide 35 H BUN 29 H Creatinine 1.04 Glucose 111 H Calcium 9.6
[2021-12-03] MEDS: BUDESONIDE 0.5 MG/2 ML VIAL (PULMICORT) NEB SCH (19:51)
[2021-12-03] MEDS: FORMOTEROL 20 MCG/2 ML VIAL NEB SCH (19:56)
[2021-12-04] MEDS: IPRATROPIUM BROMIDE NEB SOLN 0.02% 2.5 ML VIAL INH SCH ×4 (00:17→19:39)
[2021-12-04] MEDS: LEVALBUTEROL 1.25MG/0.5ML NEB INH SCH ×4 (00:17→19:38)
[2021-12-04] MEDS: BUDESONIDE 0.5 MG/2 ML VIAL (PULMICORT) NEB SCH ×2 (06:53→19:38)
[2021-12-04] MEDS: FORMOTEROL 20 MCG/2 ML VIAL NEB SCH ×2 (06:54→19:38)
[2021-12-04 07:21] LABS: Hematocrit (blood only) 44.2 % (37-47); Hemoglobin 14.8 g/dL (12.0-16.0); Mean Corpuscular Hemoglobin 32.6 pg (25-34); Mean Corpuscular Hgb Conc 33.5 g/dL (32-36); Mean Corpuscular Volume 97.4 fL (80-100); Mean Platelet Volume 11.1 fL (7.4-10.4); Platelet Count 203 K/uL (130-400); RDW Coefficient of Variation 15.9 % (11.5-14.5); RDW Standard Deviation 57.9 fL (36.4-46.3); Red Blood Count 4.54 M/uL (4.2-5.4); White Blood Count 12.36 K/uL (4.8-10.8)
[2021-12-04 07:36] LABS: BUN Creatinine Ratio 27.9 (10-20); Calcium 9.8 mg/dl (8.5-10.1); Creatinine Clr Calc Pharmacy 38.8 ml/min; Est GFR (African American) 53.6 ml/min; Est GFR (Non-African American) 46.2 ml/min; Potassium 3.7 mmol/L (3.5-5.1)
--- NOTE | 2021-12-04 08:22 | Pulmonology Progress Note ---
Date of Service December 04, 2021 Assessment & Plan (1) Acute and chronic respiratory failure with hypoxia: (2) Atrial fibrillation with RVR: (3) CHF (congestive heart failure): (4) GERD (gastroesophageal reflux disease): (5) Obesity: Obesity classification: adult class 2 (BMI 35 - 39.9) Plan: Impression: 81-year-old female with history of hypoxia and pulmonary disease over the last 12 months. She has never had pulmonary function testing. She was however admitted for inpatient services and was seen by scrap dealer at [facility]. He reports that she most likely has an organizing pneumonia and recommended prednisone taper as well as prophylactic treatment with Bactrim and follow-up in the outpatient clinic. Patient is scheduled for pulmonary function testing as well as outpatient pulmonary follow-up this month at [facility]. Patient has been chronically hypoxic and on supplemental oxygen for about the last 12 months. She is a lifelong non-smoker. She is vaccinated for Covid and reports never being positive for Covid. She denies any previous pulmonary disorders prior to this last 12 months. Recommendations: 1. Abnormal CT scan of the chest: CTs from [facility] were reviewed and her current imaging appears significantly improved from previous. The etiology is unclear and possibilities would include infectious, inflammatory etiologies. Cannot rule out component of atypical edema. Agree with empiric diuretics, currently on 40 mg of Lasix IV twice daily. She appears to be responding with 2.5 L negative over the last 48 hours. Off antibiotics. She has been empirically placed on prednisone by the [facility] pulmonary group for presumptive organizing pneumonia. At this point time it seems reasonable to continue although the therapy is empiric. Will defer to [facility] long-term management of immune suppression. 2. COPD/asthma: Diagnosis is somewhat unclear. Her previous spirometry from [facility] was reviewed and demonstrated a restrictive process rather than airflow obstruction. May be related to body habitus. She does have hypercarbia and requires an outpatient sleep study as she likely has obesity hypoventilation syndrome. The patient is taking both benzodiazepines and narcotics which could potentially aggravate hypercarbic respiratory failure and clinical correlation is recommended. May require bilevel. Continue nocturnal empiric CPAP at night while here in the hospital although the patient is poorly tolerant. Outpatient PFTs and follow-up with [facility] pulmonary. Continue Incruse, Perforomist, and budesonide for now 3. Hypoxia: Continue oxygen titrated to keep saturations at or above 89%. The patient is hypoxemic due to combinations of hypercarbia as well as structural lung disease and restrictive lung disease due to body habitus. Exercise and weight loss were recommended. Her oxygen is down to 3 L/min which appears to be her baseline setting. 4. Patient needs to get out of bed and up to the chair or ambulate. Incentive spirometry 10 times an hour while awake. Exercise and weight loss ultimately recommended. We will continue to follow with you. Feel free to contact us with additional q uestions or concerns Admission and Anticipated Discharge Date Admission Date: December 02, 2021 Subjective Patient seen and examined. EMR reviewed. The patient states she was coughing earlier and expectorating some clear phlegm. No hemoptysis. She had difficulty tolerating positive airway pressure last night. She remains essentially bedbound. She denies any fevers chills or night sweats. She is tolerating p.o. intake reasonably well. Review of Systems Review of Systems: All systems reviewed & are unremarkable except as noted in Subjective Physical Exam Physical Exam: GENERAL : No acute distress EYES: No icterus, gaze conjugate NOSE: No evidence of epistaxis MOUTH: No lesions or candidiasis NECK: Supple LUNGS: No wheezing today HEART: Regular, rate controlled ABDOMEN: Soft, NT, ND, BS Present EXTREMITIES: Bilateral lower extremity edema, pedal pulses intact and equal bilaterally NEURO: A&OX3 Results & Data Results & Data ([facility]) Vital Signs (Past 12 Hours) Vital Signs Temp Pulse Pulse Resp BP Pulse Ox 12/04/21 08:00 36.6 C 89 21 102/70 89 L 12/04/21 06:55 86 19 90 12/04/21 04:52 36.5 C 97 H 18 120/70 91 12/03/21 23:10 37.0 C 98 H 22 119/81 95 12/03/21 22:41 95 H 20 92 Laboratory Results 12/04/21 06:49 12/04/21 06:49 Diagnostic Findings No new imaging PG Care Time/CCT Total # of Minutes Spent Total Time Spent with Patient: Total time spent is greater than 50% in coordination of care (as documented) at patient's floor/unit and/or counseling patient: Coding Level of Care Code 93880 Subseq Hosp Care Lvl 2 Diagnoses Acute and chronic respiratory failure with hypoxia J96.21 Atrial fibrillation with RVR I48.91 CHF (congestive heart failure) I50.9 GERD (gastroesophageal reflux disease) K21.9 Obesity E66.9 Obesity classification: adult class 2 (BMI 35 - 39.9)
[2021-12-04] MEDS: CALCIUM 600MG + VIT D 400 IU TAB PO SCH ×2 (08:41→20:33)
[2021-12-04] MEDS: METOPROLOL TARTRATE 25 MG TAB PO SCH ×2 (08:42→20:33)
[2021-12-04] MEDS: APIXABAN 5 MG TABLET PO SCH ×2 (08:42→20:32)
[2021-12-04] MEDS: ASPIRIN 81 MG ECTAB PO SCH (08:43)
[2021-12-04] MEDS: SULFAMETHOXAZOLE/TRIMETHOPRIM DS 800/160MG TAB PO SCH (08:43)
[2021-12-04] MEDS: MAGNESIUM OXIDE 400 MG TAB PO SCH (08:44)
[2021-12-04] MEDS: predniSONE 20 MG TAB PO SCH (08:45)
[2021-12-04] MEDS: POTASSIUM CHLORIDE CRTAB 20 MEQ TABCR PO SCH ×2 (08:45→17:34)
[2021-12-04] MEDS: UMECLIDINIUM BROMIDE 62.5MCG/BLISTER 7 PUFFS/INHALER INH SCH (08:47)
[2021-12-04] MEDS: FUROSEMIDE 40 MG/4 ML VIAL IV SCH ×2 (08:58→20:32)
--- NOTE | 2021-12-04 13:05 | Cardiology Progress Note ---
Date of Service December 04, 2021 Assessment & Plan (1) Acute respiratory failure: Plan: -likely an infectious or post infectious etiology. -has a component of diastolic CHF. -continue IV Lasix until BUN/creatinine increase significantly. (2) Chest pain syndrome: Plan: -noncardiac chest pain. -troponin undetectable x3. -likely pleuritic chest pain. -no further cardiac evaluation necessary. (3) CHF (congestive heart failure): Plan: -may have a component of acute on chronic diastolic CHF. -as above, continue intravenous Lasix. (4) LVH (left ventricular hypertrophy): Plan: -mild to moderate LVH on current echocardiogram (by my review). -dynamic LVOT obstruction of 25 mmHg on current echocardiogram. (5) Atrial fibrillation: Plan: -tolerating rhythm control and long-term anticoagulation without difficulty. -continue Eliquis. -amiodarone currently on hold. -restart amiodarone once her pulmonary status normalizes. Admission and Anticipated Discharge Date Admission Date: December 02, 2021 Subjective The patient is resting comfortably in bed without complaints of chest pain or dyspnea. Physical Exam Physical Exam: In general this is an obese white female in no acute distress. HEENT exam is negative. Neck is supple with full carotid upstrokes. There are no carotid bruits. No JVD. There is no thyromegaly. Cardiovascular exam reveals a regular rhythm with a 2/6 basal systolic ejection murmur. No S3 or S4. Lungs note coarse breath sounds throughout. Abdomen is soft and nontender without bruits. Extremities reveal intact radial artery and posterior tibial pulses bilaterally. There is trace pretibial edema Results & Data ([facility]) Vital Signs (Past 12 Hours) Vital Signs Temp Pulse Pulse Resp BP Pulse Ox 12/04/21 11:06 36.5 C 86 20 125/85 90 12/04/21 08:00 36.6 C 89 21 102/70 89 L 12/04/21 06:55 86 19 90 12/04/21 04:52 36.5 C 97 H 18 120/70 91 Diagnostic Findings cardiac monitor technician notes a heart rate in the 90-105 range. PG Care Time/CCT Total # of Minutes Spent Total Time Spent with Patient: Total time spent is greater than 50% in coordination of care (as documented) at patient's floor/unit and/or counseling patient: Coding Level of Care Code 62667 Subseq Hosp Care Lvl 3 Diagnoses Acute respiratory failure J96.00 Chest pain syndrome R07.9 CHF (congestive heart failure) I50.9 LVH (left ventricular hypertrophy) I51.7 Atrial fibrillation I48.91
--- NOTE | 2021-12-04 17:16 | Hospitalist Progress Note ---
Date of Service December 04, 2021 Assessment & Plan (1) Acute diastolic heart failure: Plan: Patient is an 81 yr female who presents with shortness of breath. [id number] respiratory failure with Hypoxia: Acute on Chronic diastolic Heart failure Patient is on 2L at rest and 3L with activity at baseline --CXR:Cardiomegaly with mild pulmonary vascular congestion. This has progressed in the interval. There are few scattered patchy airspace opacities most pronounced at the lung bases. This could represent atelectasis or pneumonia. --ECHO: No significant valvular heart disease. Left ventricle systolic function is normal. Right ventricle systolic function is elevated at 30-40 mmHg Hold PO diuretics Continue IV Lasix 40mg BID Daily weight, I/Os, fluid restriction Supplemental Oxygen as needed Monitor renal function/electrolytes Appreciate Cardiology Input Continue IV diuresis Volume status slowly improving Chest Pain Likely Pleuritic Origin Rib fractures of Right 4th, 5th and Left 3rd on CT Incentive Spirometry Negative Cardiac Enzymes Recently treated for Multifocal pneumonia Suspected tracheobronchial malacia/obesity hypoventilation syndrome Evaluated by Pulm at [facility] and though to have organizing pneumonia. Placed on long prednisone taper with Bactrim prophylaxis. Possible COPD Exacerbation --CT Chest:Diffuse atelectasis versus scarring predominantly in the lower lobes. Compression deformities in the T5 and T6 vertebral bodies, age indeterminate. Age-indeterminate rib fractures of the posterior right fourth and fifth ribs and left third rib. Correlation with point tenderness is recommended. --Normal Procalcitonin --Empirically started on Ceftriaxone, Doxycycline>> discontinued as per pulmonary recommendations Also on Prednisone Consulted Pulmonology Continue home inhalers Needs Outpatient Sleep Study, PFTs CPAP at bedtime. Started on Pulmicort, Perforomist Titrate oxygen to keep saturations 88-92% Currently on 3 L oxygen--her baseline Chronic atrial fibrillation Continue metoprolol Amiodarone was discontinued by pulmonary at [place] because of lung changes. On Eliquis for anticoagulation Hypertension: On diuretics and metoprolol CAD On aspirin, Metoprolol Morbid obesity: BMI 43 Chronic kidney disease stage III: Monitor renal function Anxiety: On Ativan p.r.n. Ambulatory dysfunction: PT, OT prior to discharge. DVT Px: On Eliquis. Code Status Full code Admission and Anticipated Discharge Date Admission Date: December 02, 2021 Subjective Patient is seen and examined at bedside Less cough, dyspnea today Leg swelling slowly improving Still has some chest discomfort with cough No other complaints Review of Systems Review of Systems: All systems reviewed & are unremarkable except as noted in Subjective Physical Exam Physical Exam: Physical Exam: Vitals signs as noted above General Appearance:Obese, no apparent distress Head: normocephalic, Atraumatic Eyes: normal inspection, EOMI Neck: supple, Trachea midline Respiratory/Chest: Coarse breath sounds, CTA, No accessory muscle use Cardiovascular: S1, S2, + murmur Abdomen/GI:Soft, Non tender, Bowel sounds present Extremities/Musculoskeletal:normal inspection, 2+ B/L LE edema Neurologic/Psych:AAOX3, grossly no focal neurological deficits Skin: normal color, warm Results & Data Results & Data ([facility]) Vital Signs (Past 12 Hours) Vital Signs Temp Pulse Pulse Pulse Resp BP Pulse Ox 12/04/21 15:46 95 H 12/04/21 15:39 36.5 C 96 H 21 107/71 88 L 12/04/21 13:39 12/04/21 13:10 79 20 90 12/04/21 11:06 36.5 C 86 20 125/85 90 12/04/21 08:45 99 H 12/04/21 08:00 36.6 C 89 21 102/70 89 L 12/04/21 06:55 86 19 90 Pulse Ox Pulse Ox Pulse Ox 12/04/21 15:46 12/04/21 15:39 12/04/21 13:39 90 86 L 88 L 12/04/21 13:10 12/04/21 11:06 12/04/21 08:45 12/04/21 08:00 12/04/21 06:55 Laboratory Results Short CBC 12/04/21 Range/Units 06:49 WBC 12.36 H (4.8-10.8) K/uL Hgb 14.8 (12.0-16.0) g/dL Hct 44.2 (37-47) % Plt Count 203 (130-400) K/uL BMP 12/04/21 06:49 Sodium 137 Potassium 3.7 Chloride 97 L Carbon Dioxide 34 H BUN 31 H Creatinine 1.11 Glucose 122 H Calcium 9.8
[2021-12-04] MEDS: DOCUSATE SODIUM/SENNA 50/8.6MG TAB PO PRN (20:32)
[2021-12-05] MEDS: LEVALBUTEROL 1.25MG/0.5ML NEB INH SCH (00:13)
[2021-12-05] MEDS: IPRATROPIUM BROMIDE NEB SOLN 0.02% 2.5 ML VIAL INH SCH ×4 (00:13→19:45)
[2021-12-05] MEDS: LEVALBUTEROL HCL 1.25 MG/3 ML NEB INH SCH ×4 (00:40→19:44)
[2021-12-05] MEDS: MoRPHine SULFATE 4 MG/ML 1 ML CARP\\VIAL IV PRN (01:18)
[2021-12-05 06:32] LABS: BUN Creatinine Ratio 33.3 (10-20); Calcium 9.5 mg/dl (8.5-10.1); Creatinine Clr Calc Pharmacy 46.5 ml/min; Est GFR (African American) 63.8 ml/min; Est GFR (Non-African American) 55.1 ml/min; Magnesium 2.3 mg/dl (1.7-2.4)
[2021-12-05] MEDS: FORMOTEROL 20 MCG/2 ML VIAL NEB SCH ×2 (06:53→19:45)
[2021-12-05] MEDS: BUDESONIDE 0.5 MG/2 ML VIAL (PULMICORT) NEB SCH ×2 (06:54→19:44)
[2021-12-05] MEDS: APIXABAN 5 MG TABLET PO SCH ×2 (08:56→20:49)
[2021-12-05] MEDS: guaiFENesin 600 MG TABCR PO PRN ×2 (08:56→20:48)
[2021-12-05] MEDS: CALCIUM 600MG + VIT D 400 IU TAB PO SCH ×2 (08:56→20:49)
[2021-12-05] MEDS: predniSONE 20 MG TAB PO SCH (08:56)
[2021-12-05] MEDS: POTASSIUM CHLORIDE CRTAB 20 MEQ TABCR PO SCH ×2 (08:57→18:28)
[2021-12-05] MEDS: ASPIRIN 81 MG ECTAB PO SCH (08:57)
[2021-12-05] MEDS: UMECLIDINIUM BROMIDE 62.5MCG/BLISTER 7 PUFFS/INHALER INH SCH (08:58)
[2021-12-05] MEDS: MAGNESIUM OXIDE 400 MG TAB PO SCH (08:58)
[2021-12-05] MEDS: SULFAMETHOXAZOLE/TRIMETHOPRIM DS 800/160MG TAB PO SCH (08:58)
[2021-12-05] MEDS: FUROSEMIDE 40 MG/4 ML VIAL IV SCH ×2 (09:03→20:56)
[2021-12-05] MEDS: METOPROLOL TARTRATE 25 MG TAB PO SCH ×2 (09:20→20:51)
--- NOTE | 2021-12-05 09:38 | Pulmonology Progress Note ---
Date of Service December 05, 2021 Assessment & Plan (1) Acute and chronic respiratory failure with hypoxia: (2) Atrial fibrillation with RVR: (3) CHF (congestive heart failure): (4) GERD (gastroesophageal reflux disease): (5) Obesity: Obesity classification: adult class 2 (BMI 35 - 39.9) Plan: Impression: 81-year-old female with history of hypoxia and pulmonary disease over the last 12 months. She has never had pulmonary function testing. She was however admitted for inpatient services and was seen by monumental stonemason at [facility]. He reports that she most likely has an organizing pneumonia and recommended prednisone taper as well as prophylactic treatment with Bactrim and follow-up in the outpatient clinic. Patient is scheduled for pulmonary function testing as well as outpatient pulmonary follow-up this month at [facility]. Patient has been chronically hypoxic and on supplemental oxygen for about the last 12 months. She is a lifelong non-smoker. She is vaccinated for Covid and reports never being positive for Covid. She denies any previous pulmonary disorders prior to this last 12 months. Recommendations: 1. Abnormal CT scan of the chest: CTs from [facility] were reviewed and her current imaging appears significantly improved from previous. The etiology is unclear and possibilities would include infectious, inflammatory etiologies. Cannot rule out component of atypical edema. Agree with empiric diuretics, currently on 40 mg of Lasix IV twice daily. She appears to be responding with no increase in serum creatinine or BUN at this point time. Off antibiotics. She has been empirically placed on prednisone by the [facility] pulmonary group for presumptive organizing pneumonia. At this point time it seems reasonable to continue although the therapy is empiric. Will defer to [facility] long-term management of immune suppression. Continue Bactrim prophylaxis until prednisone dose is below 20 mg a day. 2. COPD/asthma: Diagnosis is somewhat unclear. Her previous spirometry from [facility] was reviewed and demonstrated a restrictive process rather than airflow obstruction. May be related to body habitus. She does have hypercarbia and requires an outpatient sleep study as she likely has obesity hypoventilation syndrome. The patient is taking both benzodiazepines and narcotics which could potentially aggravate hypercarbic respiratory failure and clinical correlation is recommended. May require bilevel. Continue nocturnal empiric CPAP at night while here in the hospital. Outpatient complete PFTs and follow-up with [facility] pulmonary. If restriction is confirmed, she will require additional evaluation for restrictive lung disease. Continue Incruse, Perforomist, and budesonide for now 3. Hypoxia: Multifactorial due to combinations of pulmonary edema/diastolic dysfunction, probable restrictive lung disease due to body habitus, hypercarbia, VQ mismatch due to atelectasis and deconditioned/sedentary state. Continue oxygen titrated to keep saturations at or above 89%. Oxygen appears to be at baseline. 4. Patient needs to get out of bed and up to the chair or ambulate. Incentive spirometry 10 times an hour while awake. Exercise and weight loss ultimately recommended. Discussed with bedside nurse as well as patient at bedside. Will reassess again on Tuesday. Call if questions. Admission and Anticipated Discharge Date Admission Date: December 02, 2021 Subjective Patient seen and examined. She feels like she is back to her baseline. She remains fairly sedentary. She was able to tolerate CPAP last night. She is not coughing or expectorating phlegm. She continues to diurese. She remains on supplemental oxygen close to her baseline levels Review of Systems Review of Systems: All systems reviewed & are unremarkable except as noted in Subjective Physical Exam Physical Exam: GENERAL : No acute distress EYES: No icterus, gaze conjugate NOSE: No evidence of epistaxis MOUTH: No lesions or candidiasis NECK: Supple LUNGS: No wheezing today HEART: Regular, rate controlled ABDOMEN: Soft, NT, ND, BS Present EXTREMITIES: Bilateral lower extremity edema, pedal pulses intact and equal bilaterally NEURO: A&OX3 Results & Data Results & Data ([facility]) Vital Signs (Past 12 Hours) Vital Signs Temp Pulse Pulse Resp BP Pulse Ox 12/05/21 08:04 36.5 C 88 21 115/79 89 L 12/05/21 06:55 90 21 94 12/05/21 03:28 36.7 C 88 16 119/81 96 12/05/21 03:08 79 17 92 12/05/21 00:13 93 H 17 96 12/04/21 22:45 36.7 C 90 20 121/85 98 12/04/21 22:28 95 H 20 92 12/04/21 22:24 97 H Laboratory Results 12/04/21 06:49 12/05/21 05:45 Diagnostic Findings No new imaging PG Care Time/CCT Total # of Minutes Spent Total Time Spent with Patient: Total time spent is greater than 50% in coordination of care (as documented) at patient's floor/unit and/or counseling patient: Coding Level of Care Code 72624 Subseq Hosp Care Lvl 2 Diagnoses Acute and chronic respiratory failure with hypoxia J96.21 Atrial fibrillation with RVR I48.91 CHF (congestive heart failure) I50.9 GERD (gastroesophageal reflux disease) K21.9 Obesity E66.9 Obesity classification: adult class 2 (BMI 35 - 39.9)
--- NOTE | 2021-12-05 12:36 | Electrocardiogram Report ---
Test Reason : Blood Pressure : / mmHG Vent. Rate : 093 BPM Atrial Rate : 093 BPM P-R Int : 166 ms QRS Dur : 088 ms QT Int : 380 ms P-R-T Axes : 072 -11 074 degrees QTc Int : 472 ms Sinus rhythm with Premature atrial complexes Left ventricular hypertrophy with repolarization abnormality Abnormal ECG When compared with ECG of 03-DEC-2021 05:42, No significant change Confirmed by Brad Prince ([id number]) on 12/05/2021 12:36:02 PM Referred By: REFERRED SELF Confirmed By:Brad Prince
--- NOTE | 2021-12-05 14:44 | Hospitalist Progress Note ---
Date of Service December 05, 2021 Assessment & Plan (1) Acute diastolic heart failure: Plan: Patient is an 81 yr female who presents with shortness of breath. [id number] respiratory failure with Hypoxia: Acute on Chronic diastolic Heart failure Patient is on 2L at rest and 3L with activity at baseline --CXR:Cardiomegaly with mild pulmonary vascular congestion. This has progressed in the interval. There are few scattered patchy airspace opacities most pronounced at the lung bases. This could represent atelectasis or pneumonia. --ECHO: No significant valvular heart disease. Left ventricle systolic function is normal. Right ventricle systolic function is elevated at 30-40 mmHg Hold PO diuretics Continue IV Lasix 40mg BID Daily weight, I/Os, fluid restriction Supplemental Oxygen as needed Monitor renal function/electrolytes Appreciate Cardiology Input Continue IV diuresis Diuresing well Chest Pain Likely Pleuritic Origin Rib fractures of Right 4th, 5th and Left 3rd on CT Incentive Spirometry Negative Cardiac Enzymes Recently treated for Multifocal pneumonia Suspected tracheobronchial malacia/obesity hypoventilation syndrome Evaluated by Pulm at [facility] and though to have organizing pneumonia. Placed on long prednisone taper with Bactrim prophylaxis. Possible COPD Exacerbation --CT Chest:Diffuse atelectasis versus scarring predominantly in the lower lobes. Compression deformities in the T5 and T6 vertebral bodies, age indeterminate. Age-indeterminate rib fractures of the posterior right fourth and fifth ribs and left third rib. Correlation with point tenderness is recommended. --Normal Procalcitonin --Empirically started on Ceftriaxone, Doxycycline>> discontinued as per pulmonary recommendations Continue Prednisone course (40mg for daily for 4 days, THEN 30mg daily for 14 days, THEN 20mg daily for 21 days) Appreciate Pulmonology Input Continue home inhalers Needs Outpatient Sleep Study, PFTs CPAP at bedtime. Started on Pulmicort, Perforomist Titrate oxygen to keep saturations 88-92% Currently on 3 L oxygen--her baseline Chronic atrial fibrillation Continue metoprolol Amiodarone was discontinued by pulmonary at [place] because of lung c hanges. On Eliquis for anticoagulation Hypertension: On diuretics and metoprolol CAD On aspirin, Metoprolol Morbid obesity: BMI 43 Chronic kidney disease stage III: Monitor renal function Anxiety: On Ativan p.r.n. Ambulatory dysfunction: PT, OT prior to discharge. DVT Px: On Eliquis. Code Status Full code Admission and Anticipated Discharge Date Admission Date: December 02, 2021 Subjective Patient is seen and examined at bedside Reports dry cough Tolerated CPAP use overnight Also has dyspnea on exertion only Leg swelling continues to improve No other complaints Review of Systems Review of Systems: All systems reviewed & are unremarkable except as noted in Subjective Physical Exam Physical Exam: Physical Exam: Vitals signs as noted above General Appearance:Obese, no apparent distress Head: normocephalic, Atraumatic Eyes: normal inspection, EOMI Neck: supple, Trachea midline Respiratory/Chest: Decreased breath sounds, CTA, No accessory muscle use Cardiovascular: S1, S2, + murmur Abdomen/GI:Soft, Non tender, Bowel sounds present Extremities/Musculoskeletal:normal inspection, 2+ B/L LE edema Neurologic/Psych:AAOX3, grossly no focal neurological deficits Skin: normal color, warm Results & Data Results & Data ([facility]) Vital Signs (Past 12 Hours) Vital Signs Temp Pulse Pulse Pulse Resp BP BP 12/05/21 12:45 83 19 12/05/21 11:08 36.5 C 84 19 112/78 12/05/21 08:04 36.5 C 88 21 115/79 12/05/21 06:55 90 21 12/05/21 03:28 36.7 C 88 16 119/81 12/05/21 03:08 79 17 Pulse Ox 12/05/21 12:45 94 12/05/21 11:08 89 L 12/05/21 08:04 89 L 12/05/21 06:55 94 12/05/21 03:28 96 12/05/21 03:08 92 Laboratory Results BMP 12/05/21 05:45 Sodium 138 Potassium 4.0 Chloride 97 L Carbon Dioxide 34 H BUN 32 H Creatinine 0.96 Glucose 94 Calcium 9.5
[2021-12-05] MEDS: DOCUSATE SODIUM/SENNA 50/8.6MG TAB PO PRN (20:48)
[2021-12-06] MEDS: IPRATROPIUM BROMIDE NEB SOLN 0.02% 2.5 ML VIAL INH SCH ×4 (00:45→20:01)
[2021-12-06] MEDS: LEVALBUTEROL HCL 1.25 MG/3 ML NEB INH SCH ×4 (00:45→20:01)
[2021-12-06] MEDS: BUDESONIDE 0.5 MG/2 ML VIAL (PULMICORT) NEB SCH ×2 (06:46→20:01)
[2021-12-06] MEDS: FORMOTEROL 20 MCG/2 ML VIAL NEB SCH ×2 (06:47→20:01)
[2021-12-06 06:59] LABS: BUN Creatinine Ratio 30.9 (10-20); Calcium 9.2 mg/dl (8.5-10.1); Creatinine Clr Calc Pharmacy 40.6 ml/min; Est GFR (African American) 54.1 ml/min; Est GFR (Non-African American) 46.7 ml/min; Potassium 3.8 mmol/L (3.5-5.1)
[2021-12-06] MEDS: MAGNESIUM OXIDE 400 MG TAB PO SCH (10:04)
[2021-12-06] MEDS: CALCIUM 600MG + VIT D 400 IU TAB PO SCH ×2 (10:04→19:52)
[2021-12-06] MEDS: APIXABAN 5 MG TABLET PO SCH ×2 (10:04→19:52)
[2021-12-06] MEDS: UMECLIDINIUM BROMIDE 62.5MCG/BLISTER 7 PUFFS/INHALER INH SCH (10:05)
[2021-12-06] MEDS: POTASSIUM CHLORIDE CRTAB 20 MEQ TABCR PO SCH ×2 (10:05→17:37)
[2021-12-06] MEDS: METOPROLOL TARTRATE 25 MG TAB PO SCH ×2 (10:06→19:52)
[2021-12-06] MEDS: ASPIRIN 81 MG ECTAB PO SCH (10:07)
[2021-12-06] MEDS: DOCUSATE SODIUM/SENNA 50/8.6MG TAB PO PRN (10:33)
--- NOTE | 2021-12-06 10:45 | Pulmonology Progress Note ---
Date of Service December 06, 2021 Assessment & Plan (1) Acute and chronic respiratory failure with hypoxia: (2) Atrial fibrillation with RVR: (3) CHF (congestive heart failure): (4) GERD (gastroesophageal reflux disease): (5) Obesity: Obesity classification: adult class 2 (BMI 35 - 39.9) Plan: Impression: 81-year-old female with history of hypoxia and pulmonary disease over the last 12 months. She has never had pulmonary function testing. She was however admitted for inpatient services and was seen by research scientist at [facility]. He reports that she most likely has an organizing pneumonia and recommended prednisone taper as well as prophylactic treatment with Bactrim and follow-up in the outpatient clinic. Patient is scheduled for pulmonary function testing as well as outpatient pulmonary follow-up this month at [facility]. Patient has been chronically hypoxic and on supplemental oxygen for about the last 12 months. She is a lifelong non-smoker. She is vaccinated for Covid and reports never being positive for Covid. She denies any previous pulmonary disorders prior to this last 12 months. Recommendations: 1. Abnormal CT scan of the chest: CTs from [facility] were reviewed and her current imaging appears significantly improved from previous. The etiology is unclear and possibilities would include infectious, inflammatory etiologies. Cannot rule out component of atypical edema. Agree with empiric diuretics, currently on 40 mg of Lasix IV twice daily. She appears to be responding with no increase in serum creatinine or BUN at this point time. Off antibiotics. She has been empirically placed on prednisone by the [facility] pulmonary group for presumptive organizing pneumonia. At this point time it seems reasonable to continue although the therapy is empiric. Will defer to [facility] long-term management of immune suppression. Continue Bactrim prophylaxis until prednisone dose is below 20 mg a day. 2. COPD/asthma: Diagnosis is somewhat unclear. Her previous spirometry from [facility] was reviewed and demonstrated a restrictive process rather than airflow obstruction. May be related to body habitus. She does have hypercarbia and requires an outpatient sleep study as she likely has obesity hypoventilation syndrome. The patient is taking both benzodiazepines and narcotics which could potentially aggravate hypercarbic respiratory failure and clinical correlation is recommended. May require bilevel. Continue nocturnal empiric CPAP at night while here in the hospital. Outpatient complete PFTs and follow-up with [facility] pulmonary. If restriction is confirmed, she will require additional evaluation for restrictive lung disease. Continue Incruse, Perforomist, and budesonide for now 3. Hypoxia: Multifactorial due to combinations of pulmonary edema/diastolic dysfunction, probable restrictive lung disease due to body habitus, hypercarbia, VQ mismatch due to atelectasis and deconditioned/sedentary state. Continue oxygen titrated to keep saturations at or above 89%. Oxygen appears to be at baseline. 4. Patient needs to get out of bed and up to the chair or ambulate. Incentive spirometry 10 times an hour while awake. Exercise and weight loss ultimately recommended. Patient appears to be approaching her baseline status. Pulmonary will sign off at this point time. Feel free to contact us if additional questions or we can be of additional assistance. Admission and Anticipated Discharge Date Admission Date: December 02, 2021 Subjective Patient seen and examined. EMR reviewed. She is sitting upright in the chair. She thinks her breathing continues to show slow and steady improvement. She tolerated CPAP for a few hours last night. She does not report any cough or spu selvin production. No fevers chills or night sweats overnight. She has been eating. Review of Systems Review of Systems: All systems reviewed & are unremarkable except as noted in Subjective Physical Exam Physical Exam: GENERAL : No acute distress EYES: No icterus, gaze conjugate NOSE: No evidence of epistaxis MOUTH: No lesions or candidiasis NECK: Supple LUNGS: No wheezing today HEART: Regular, rate controlled ABDOMEN: Soft, NT, ND, BS Present EXTREMITIES: Bilateral lower extremity edema, pedal pulses intact and equal bilaterally NEURO: A&OX3 Results & Data Results & Data ([facility]) Vital Signs (Past 12 Hours) Vital Signs Temp Pulse Pulse Resp BP BP Pulse Ox 12/06/21 07:19 36.3 C L 89 20 113/74 91 12/06/21 06:47 82 18 94 12/06/21 03:33 36.5 C 79 16 119/81 94 12/05/21 23:22 36.8 C 80 18 110/78 92 Laboratory Results 12/04/21 06:49 12/06/21 05:41 Diagnostic Findings No new imaging PG Care Time/CCT Total # of Minutes Spent Total Time Spent with Patient: Total time spent is greater than 50% in coordination of care (as documented) at patient's floor/unit and/or counseling patient: Coding Level of Care Code 74488 Subseq Hosp Care Lvl 2 Diagnoses Acute and chronic respiratory failure with hypoxia J96.21 Atrial fibrillation with RVR I48.91 CHF (congestive heart failure) I50.9 GERD (gastroesophageal reflux disease) K21.9 Obesity E66.9 Obesity classification: adult class 2 (BMI 35 - 39.9)
[2021-12-06] MEDS: predniSONE 20 MG TAB PO SCH (10:47)
[2021-12-06] MEDS: FUROSEMIDE 40 MG/4 ML VIAL IV SCH ×2 (10:47→20:04)
[2021-12-06] MEDS: MoRPHine SULFATE 4 MG/ML 1 ML CARP\\VIAL IV PRN (12:26)
--- NOTE | 2021-12-06 15:46 | Hospitalist Progress Note ---
Date of Service December 06, 2021 Assessment & Plan (1) Acute diastolic heart failure: Plan: Patient is an 81 yr female who presents with shortness of breath. [id number] respiratory failure with Hypoxia: Acute on Chronic diastolic Heart failure Patient is on 2L at rest and 3L with activity at baseline --CXR:Cardiomegaly with mild pulmonary vascular congestion. This has progressed in the interval. There are few scattered patchy airspace opacities most pronounced at the lung bases. This could represent atelectasis or pneumonia. --ECHO: No significant valvular heart disease. Left ventricle systolic function is normal. Right ventricle systolic function is elevated at 30-40 mmHg Hold PO diuretics Continue IV Lasix 40mg BID Daily weight, I/Os, fluid restriction Supplemental Oxygen as needed Monitor renal function/electrolytes Appreciate Cardiology Input Continue IV diuresis Monitor renal function Check CXR tomorrow Chest Pain Likely Pleuritic Origin Rib fractures of Right 4th, 5th and Left 3rd on CT Incentive Spirometry Negative Cardiac Enzymes Recently treated for Multifocal pneumonia Suspected tracheobronchial malacia/obesity hypoventilation syndrome Evaluated by Pulm at [facility] and though to have organizing pneumonia. Placed on long prednisone taper with Bactrim prophylaxis. Possible COPD Exacerbation --CT Chest:Diffuse atelectasis versus scarring predominantly in the lower lobes. Compression deformities in the T5 and T6 vertebral bodies, age indeterminate. Age-indeterminate rib fractures of the posterior right fourth and fifth ribs and left third rib. Correlation with point tenderness is recommended. --Normal Procalcitonin --Empirically started on Ceftriaxone, Doxycycline>> discontinued as per pulmonary recommendations Continue Prednisone course--currently on 30mg daily (30mg daily for 14 days, THEN 20mg daily for 21 days as per [facility]--started during prior hospitalization) Continue Bactrim prophylaxis until prednisone dose is below 20 mg a day. Appreciate Pulmonology Input Continue home inhalers Needs Outpatient Sleep Study, PFTs CPAP at bedtime. Continue Pulmicort, Perforomist Titrate oxygen to keep saturations 88-92% Currently on 3 L oxygen--her baseline Chronic atrial fibrillation Continue metoprolol [facility]. On Eliquis for anticoagulation Hypertension: On diuretics and metoprolol CAD On aspirin, Metoprolol Morbid obesity: BMI 43 Chronic kidney disease stage III: Monitor renal function Anxiety: On Ativan p.r.n. Ambulatory dysfunction: PT, OT prior to discharge. DVT Px: On Eliquis. Code Status Full code Admission and Anticipated Discharge Date Admission Date: December 02, 2021 Subjective Patient is seen and examined at bedside No new complaints Tolerated CPAP use for about 3 1/2 hrs overnight Cough much improved Denies chest pain, dyspnea at rest, dizziness, abd pain Review of Systems Review of Systems: All systems reviewed & are unremarkable except as noted in Subjective Physical Exam Physical Exam: Physical Exam: Vitals signs as noted above General Appearance:Obese, no apparent distress Head: normocephalic, Atraumatic Eyes: normal inspection, EOMI Neck: supple, Trachea midline Respiratory/Chest: Decreased breath sounds, CTA, No accessory muscle use Cardiovascular: S1, S2, + murmur Abdomen/GI:Soft, Non tender, Bowel sounds present Extremities/Musculoskeletal:normal inspection, 1+ B/L LE edema Neurologic/Psych:AAOX3, grossly no focal neurological deficits Skin: normal color, warm Results & Data Results & Data ([facility]) Vital Signs (Past 12 Hours) Vital Signs Temp Pulse Pulse Resp BP Pulse Ox 12/06/21 15:23 36.4 C L 78 20 112/78 91 12/06/21 13:57 77 12/06/21 12:47 78 20 91 12/06/21 11:58 36.3 C L 101 H 18 113/74 94 12/06/21 07:19 36.3 C L 89 20 113/74 91 12/06/21 06:47 82 18 94 Laboratory Results [facility] 12/06/21 05:41 Sodium 138 Potassium 3.8 Chloride 97 L Carbon Dioxide 34 H BUN 34 H Creatinine 1.10 Glucose 90 Calcium 9.2
[2021-12-07] MEDS: LEVALBUTEROL HCL 1.25 MG/3 ML NEB INH SCH ×4 (00:35→19:39)
[2021-12-07] MEDS: IPRATROPIUM BROMIDE NEB SOLN 0.02% 2.5 ML VIAL INH SCH ×5 (00:36→19:39)
[2021-12-07 06:52] LABS: BUN Creatinine Ratio 28.8 (10-20); Calcium 9.1 mg/dl (8.5-10.1); Creatinine Clr Calc Pharmacy 41.8 ml/min; Est GFR (African American) 57.9 ml/min; Potassium 3.8 mmol/L (3.5-5.1)
[2021-12-07] MEDS: BUDESONIDE 0.5 MG/2 ML VIAL (PULMICORT) NEB SCH ×2 (07:00→19:36)
[2021-12-07] MEDS: FORMOTEROL 20 MCG/2 ML VIAL NEB SCH ×2 (07:00→19:35)
--- NOTE | 2021-12-07 07:48 | XRay Report ---
XR chest 1V portable CLINICAL HISTORY: CHF TECHNIQUE: Single frontal radiograph of the chest was obtained. Comparison: Comparison is made to chest one view 12/01/2021 FINDINGS: No lines and tubes are seen. Cardiomegaly is noted. A few patchy airspace opacities are minimally imp roved from prior exam. No evidence of pleural effusion or pneumothorax. IMPRESSION: Cardiomegaly is noted. Interval minimal improvement of previously noted patchy airspace opacities whi ch may represent atelectasis and/or pneumonia. ACT 112: Negative or not required by law. Electronically signed by: Elkin Brooks M.D. 12/07/2021 7:47 AM
[2021-12-07] MEDS: UMECLIDINIUM BROMIDE 62.5MCG/BLISTER 7 PUFFS/INHALER INH SCH (08:11)
[2021-12-07] MEDS: FUROSEMIDE 40 MG/4 ML VIAL IV SCH ×2 (08:11→20:51)
[2021-12-07] MEDS: CALCIUM 600MG + VIT D 400 IU TAB PO SCH ×2 (08:12→20:50)
[2021-12-07] MEDS: ASPIRIN 81 MG ECTAB PO SCH (08:12)
[2021-12-07] MEDS: APIXABAN 5 MG TABLET PO SCH ×2 (08:12→20:50)
[2021-12-07] MEDS: MAGNESIUM OXIDE 400 MG TAB PO SCH (08:13)
[2021-12-07] MEDS: predniSONE 10 MG TABLET PO SCH (08:13)
[2021-12-07] MEDS: METOPROLOL TARTRATE 25 MG TAB PO SCH ×2 (08:13→20:49)
[2021-12-07] MEDS: POTASSIUM CHLORIDE CRTAB 20 MEQ TABCR PO SCH ×2 (08:13→17:04)
[2021-12-07] MEDS: SULFAMETHOXAZOLE/TRIMETHOPRIM DS 800/160MG TAB PO SCH (09:03)
--- NOTE | 2021-12-07 14:09 | Cardiology Progress Note ---
Date of Service December 07, 2021 Assessment & Plan (1) Acute respiratory failure: Plan: -likely an infectious or post infectious etiology. -likely a component of diastolic CHF. -continue IV Lasix until BUN/creatinine increase significantly. (2) Chest pain syndrome: Plan: -noncardiac chest pain. -troponin undetectable x3. -likely pleuritic chest pain. -no further cardiac evaluation necessary. (3) CHF (congestive heart failure): Plan: -component of acute on chronic diastolic CHF. -as above, continue intravenous Lasix. (4) LVH (left ventricular hypertrophy): Plan: -mild to moderate LVH on current echocardiogram (by my review). -dynamic LVOT obstruction of 25 mmHg on current echocardiogram. (5) Atrial fibrillation: Plan: -tolerating rhythm control and long-term anticoagulation without difficulty. -continue Eliquis. -amiodarone currently on hold. -restart amiodarone once her pulmonary status improves. Admission and Anticipated Discharge Date Admission Date: December 02, 2021 Subjective The patient is resting comfortably in bed without complaints of chest pain. Dyspnea has improved. Physical Exam Physical Exam: In general this is an obese white female in no acute distress. HEENT exam is negative. Neck is supple with full carotid upstrokes. There are no carotid bruits. No JVD. There is no thyromegaly. Cardiovascular exam reveals a regular rhythm with a 2/6 basal systolic ejection murmur. No S3 or S4. Lungs note coarse breath sounds throughout. Abdomen is soft and nontender without bruits. Extremities reveal intact radial artery and posterior tibial pulses bilaterally. There is trace pretibial edema Results & Data ([facility]) Vital Signs (Past 12 Hours) Vital Signs Temp Pulse Resp BP BP Pulse Ox 12/07/21 13:14 77 18 92 12/07/21 12:00 36.7 C 74 20 114/76 98 12/07/21 07:47 36.8 C 88 16 119/62 95 12/07/21 07:00 85 19 92 12/07/21 02:36 36.3 C L 84 18 102/73 92 Diagnostic Findings child monitor notes sinus rhythm with frequent PACs. PG Care Time/CCT Total # of Minutes Spent Total Time Spent with Patient: Total time spent is greater than 50% in coordination of care (as documented) at patient's floor/unit and/or counseling patient: Coding Level of Care Code 47171 Subseq Hosp Care Lvl 3 Diagnoses Acute respiratory failure J96.00 Chest pain syndrome R07.9 CHF (congestive heart failure) I50.9 LVH (left ventricular hypertrophy) I51.7 Atrial fibrillation I48.91
--- NOTE | 2021-12-07 15:12 | Hospitalist Progress Note ---
Date of Service December 07, 2021 Assessment & Plan (1) Acute diastolic heart failure: Plan: Patient is an 81 yr female who presents with shortness of breath. [id number] respiratory failure with Hypoxia: Acute on Chronic diastolic Heart failure Patient is on 2L at rest and 3L with activity at baseline --CXR:Cardiomegaly with mild pulmonary vascular congestion. This has progressed in the interval. There are few scattered patchy airspace opacities most pronounced at the lung bases. This could represent atelectasis or pneumonia. --ECHO: No significant valvular heart disease. Left ventricle systolic function is normal. Right ventricle systolic function is elevated at 30-40 mmHg Hold PO diuretics Daily weight, I/Os, fluid restriction Supplemental Oxygen as needed Monitor renal function/electrolytes Appreciate Cardiology Input Monitor renal function CXR today showed no congestion, improved patchy airspace opacities. Continue IV Lasix 40mg BID Chest Pain Likely Pleuritic Origin Rib fractures of Right 4th, 5th and Left 3rd on CT Incentive Spirometry Negative Cardiac Enzymes Recently treated for Multifocal pneumonia Suspected tracheobronchial malacia/obesity hypoventilation syndrome Evaluated by Pulm at [facility] [address] and though to have organizing pneumonia. Placed on long prednisone taper with Bactrim prophylaxis. Possible COPD Exacerbation --CT Chest:Diffuse atelectasis versus scarring predominantly in the lower lobes. Compression deformities in the T5 and T6 vertebral bodies, age indeterminate. Age-indeterminate rib fractures of the posterior right fourth and fifth ribs and left third rib. Correlation with point tenderness is recommended. --Normal Procalcitonin --Empirically started on Ceftriaxone, Doxycycline>> discontinued as per pulmonary recommendations Continue Prednisone course--currently on 30mg daily (30mg daily for 14 days, THEN [facility] during prior [facility]) Continue Bactrim prophylaxis until prednisone dose is below 20 mg a day. Appreciate Pulmonology Input Continue home inhalers Needs Outpatient Sleep Study, PFTs CPAP at bedtime---Patient did not tolerate CPAP Continue Pulmicort, Perforomist Titrate oxygen to keep saturations 88-92% Currently on 3 L oxygen--her baseline Chronic atrial fibrillation Continue metoprolol Amiodarone was discontinued by pulmonary at [place] because of lung changes. On Eliquis for anticoagulation Hypertension: On diuretics and metoprolol CAD On aspirin, Metoprolol Morbid obesity: BMI 43 Chronic kidney disease stage III: Monitor renal function Anxiety: On Ativan p.r.n. Ambulatory dysfunction: PT, OT prior to discharge. DVT Px: On Eliquis. Code Status Full code Admission and Anticipated Discharge Date Admission Date: December 02, 2021 Subjective Patient is seen and examined at bedside Feels better today Dyspnea much improved Did not tolerate CPAP overnight Less Cough today Denies chest pain, dyspnea at rest, dizziness, abd pain Review of Systems Review of Systems: All systems reviewed & are unremarkable except as noted in Subjective Physical Exam Physical Exam: Physical Exam: Vitals signs as noted above General Appearance:Obese, no apparent distress Head: normocephalic, Atraumatic Eyes: normal inspection, EOMI Neck: supple, Trachea midline Respiratory/Chest: Decreased breath sounds, CTA, No accessory muscle use Cardiovascular: S1, S2, + murmur Abdomen/GI:Soft, Non tender, Bowel sounds present Extremities/Musculoskeletal:normal inspection, 1+ B/L LE edema Neurologic/Psych:AAOX3, grossly no focal neurological deficits Skin: normal color, warm Results & Data Results & Data ([facility]) Vital Signs (Past 12 Hours) Vital Signs Temp Pulse Pulse Resp BP Pulse Ox 12/07/21 14:42 88 12/07/21 13:14 77 18 92 12/07/21 12:00 36.7 C 74 20 114/76 98 12/07/21 07:47 36.8 C 88 16 119/62 95 12/07/21 07:00 85 19 92 Laboratory Results [facility] 12/07/21 06:13 Sodium 139 Potassium 3.8 Chloride 98 Carbon Dioxide 36 H BUN 30 H Creatinine 1.04 Glucose 93 Calcium 9.1
[2021-12-07] MEDS ORDERED: COUGH DROP (SUGAR FREE) LOZ 24 LOZ/1 BOX BUCCAL PRN (22:08)
[2021-12-08] MEDS: LEVALBUTEROL HCL 1.25 MG/3 ML NEB INH SCH ×4 (00:02→19:36)
[2021-12-08] MEDS: IPRATROPIUM BROMIDE NEB SOLN 0.02% 2.5 ML VIAL INH SCH ×4 (00:02→19:36)
[2021-12-08] MEDS: BUDESONIDE 0.5 MG/2 ML VIAL (PULMICORT) NEB SCH ×2 (06:56→19:35)
[2021-12-08] MEDS: FORMOTEROL 20 MCG/2 ML VIAL NEB SCH ×2 (06:56→19:35)
[2021-12-08 07:14] LABS: Calcium 9.2 mg/dl (8.5-10.1); Creatinine Clr Calc Pharmacy 41.8 ml/min; Est GFR (African American) 57.9 ml/min; Potassium 3.7 mmol/L (3.5-5.1)
[2021-12-08] MEDS: APIXABAN 5 MG TABLET PO SCH ×2 (08:11→20:42)
[2021-12-08] MEDS: METOPROLOL TARTRATE 25 MG TAB PO SCH ×2 (08:11→20:39)
[2021-12-08] MEDS: CALCIUM 600MG + VIT D 400 IU TAB PO SCH ×2 (08:11→20:38)
[2021-12-08] MEDS: predniSONE 10 MG TABLET PO SCH (08:12)
[2021-12-08] MEDS: ASPIRIN 81 MG ECTAB PO SCH (08:12)
[2021-12-08] MEDS: MAGNESIUM OXIDE 400 MG TAB PO SCH (08:12)
[2021-12-08] MEDS: POTASSIUM CHLORIDE CRTAB 20 MEQ TABCR PO SCH ×2 (08:12→17:00)
[2021-12-08] MEDS: UMECLIDINIUM BROMIDE 62.5MCG/BLISTER 7 PUFFS/INHALER INH SCH (08:13)
[2021-12-08] MEDS: FUROSEMIDE 40 MG/4 ML VIAL IV SCH ×2 (08:13→20:35)
--- NOTE | 2021-12-08 15:28 | Hospitalist Progress Note ---
Date of Service December 08, 2021 Assessment & Plan (1) Acute diastolic heart failure: Plan: Patient is an 81 yr female who presents with shortness of breath. [id number]-yx-nbauume respiratory failure with Hypoxia: Acute on Chronic diastolic Heart failure Patient is on 2L at rest and 3L with activity at baseline --CXR:Cardiomegaly with mild pulmonary vascular congestion. This has progressed in the interval. There are few scattered patchy airspace opacities most pronounced at the lung bases. This could represent atelectasis or pneumonia. --ECHO: No significant valvular heart disease. Left ventricle systolic function is normal. Right ventricle systolic function is elevated at 30-40 mmHg Hold PO diuretics Daily weight, I/Os, fluid restriction Supplemental Oxygen as needed Monitor renal function/electrolytes Appreciate Cardiology Input Monitor renal function Repeat CXR showed no congestion, improved patchy airspace opacities. 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 Placed on long prednisone taper with Bactrim prophylaxis. Possible COPD Exacerbation --CT Chest:Diffuse atelectasis versus scarring predominantly in the lower lobes. Compression deformities in the T5 and T6 vertebral bodies, age indeterminate. Age-indeterminate rib fractures of the posterior right fourth and fifth ribs and left third rib. Correlation with point tenderness is recommended. --Normal Procalcitonin --Empirically started on Ceftriaxone, Doxycycline>> discontinued as per pulmonary recommendations Continue Prednisone course--currently on 30mg daily (30mg daily for 14 days, THEN 20mg daily for 21 days as per [facility] Pulmonology--started during prior hospitalization) Continue Bactrim prophylaxis until prednisone dose is below 20 mg a day. Appreciate Pulmonology Input Continue home inhalers Needs Outpatient Sleep Study, PFTs CPAP at bedtime---Patient did not tolerate CPAP Continue Pulmicort, Perforomist Titrate oxygen to keep saturations 88-92% Currently on 4 L oxygen-- baseline (3L) Chronic atrial fibrillation Continue metoprolol Amiodarone was discontinued by pulmonary at [place] because of lung changes. On Eliquis for anticoagulation Hypertension: On diuretics and metoprolol CAD On aspirin, Metoprolol Morbid obesity: BMI 43 Chronic kidney disease stage III: Monitor renal function Anxiety: On Ativan p.r.n. Ambulatory dysfunction: PT, OT prior to discharge. DVT Px: On Eliquis. Code Status Full code Admission and Anticipated Discharge Date Admission Date: December 02, 2021 Subjective Patient is seen and examined at bedside Used CPAP overnight for about 3 1/2 hrs Dyspnea much improved Denies chest pain, dyspnea at rest, dizziness, abd pain No other complaints Review of Systems Review of Systems: All systems reviewed & are unremarkable except as noted in Subjective Physical Exam Physical Exam: Physical Exam: Vitals signs as noted above General Appearance:Obese, no apparent distress Head: normocephalic, Atraumatic Eyes: normal inspection, EOMI Neck: supple, Trachea midline Respiratory/Chest: Decreased breath sounds, CTA, No accessory muscle use Cardiovascular: S1, S2, + murmur Abdomen/GI:Soft, Non tender, Bowel sounds present Extremities/Musculoskeletal:normal inspection, 1+ B/L LE edema Neurologic/Psych:AAOX3, grossly no focal neurological deficits Skin: normal color, warm Results & Data Results & Data ([facility]) Vital Signs (Past 12 Hours) Vital Signs Temp Pulse Pulse Resp BP Pulse Ox 12/08/21 13:06 79 17 93 12/08/21 11:00 36.5 C 82 16 110/67 97 12/08/21 08:43 80 12/08/21 06:57 81 18 93 12/08/21 06:43 36.5 C 12/08/21 05:07 85 20 105/71 93 Laboratory Results [facility] 12/08/21 06:18 Sodium 137 Potassium 3.7 Chloride 97 L Carbon Dioxide 34 H BUN 27 H Creatinine 1.04 Glucose 97 Calcium 9.2
[2021-12-09] MEDS: LEVALBUTEROL HCL 1.25 MG/3 ML NEB INH SCH ×4 (01:51→19:16)
[2021-12-09] MEDS: IPRATROPIUM BROMIDE NEB SOLN 0.02% 2.5 ML VIAL INH SCH ×4 (01:51→19:16)
[2021-12-09 05:52] LABS: Hematocrit (blood only) 45.4 % (37-47); Hemoglobin 14.7 g/dL (12.0-16.0); Mean Corpuscular Hemoglobin 32.2 pg (25-34); Mean Corpuscular Hgb Conc 32.4 g/dL (32-36); Mean Corpuscular Volume 99.6 fL (80-100); Mean Platelet Volume 10.7 fL (7.4-10.4); Platelet Count 173 K/uL (130-400); RDW Coefficient of Variation 15.6 % (11.5-14.5); RDW Standard Deviation 57.5 fL (36.4-46.3); Red Blood Count 4.56 M/uL (4.2-5.4)
[2021-12-09 06:24] LABS: BUN Creatinine Ratio 24.5 (10-20); Calcium 9.1 mg/dl (8.5-10.1); Creatinine Clr Calc Pharmacy 40.8 ml/min; Est GFR (African American) 56.6 ml/min; Est GFR (Non-African American) 48.9 ml/min; Potassium 3.6 mmol/L (3.5-5.1)
[2021-12-09] MEDS: BUDESONIDE 0.5 MG/2 ML VIAL (PULMICORT) NEB SCH ×2 (07:03→19:16)
[2021-12-09] MEDS: FORMOTEROL 20 MCG/2 ML VIAL NEB SCH ×3 (07:03→19:45)
[2021-12-09] MEDS: CALCIUM 600MG + VIT D 400 IU TAB PO SCH ×2 (08:55→20:48)
[2021-12-09] MEDS: FUROSEMIDE 40 MG/4 ML VIAL IV SCH ×2 (08:55→20:51)
[2021-12-09] MEDS: ASPIRIN 81 MG ECTAB PO SCH (08:55)
[2021-12-09] MEDS: APIXABAN 5 MG TABLET PO SCH ×2 (08:55→20:49)
[2021-12-09] MEDS: METOPROLOL TARTRATE 25 MG TAB PO SCH ×2 (08:56→20:50)
[2021-12-09] MEDS: POTASSIUM CHLORIDE CRTAB 20 MEQ TABCR PO SCH ×2 (08:56→16:29)
[2021-12-09] MEDS: MAGNESIUM OXIDE 400 MG TAB PO SCH (08:56)
[2021-12-09] MEDS: predniSONE 10 MG TABLET PO SCH (08:56)
[2021-12-09] MEDS: UMECLIDINIUM BROMIDE 62.5MCG/BLISTER 7 PUFFS/INHALER INH SCH (08:57)
[2021-12-09] MEDS: SULFAMETHOXAZOLE/TRIMETHOPRIM DS 800/160MG TAB PO SCH (08:57)
--- NOTE | 2021-12-09 12:55 | Hospitalist Progress Note ---
Date of Service December 09, 2021 Assessment & Plan (1) Acute diastolic heart failure: Plan: 81 yr female who presents with shortness of breath. [id number] respiratory failure with Hypoxia: (likely multifactorial - cardiac and pulmonary) Acute on Chronic diastolic Heart failure Patient is on 2L at rest and 3L with activity at baseline --CXR:Cardiomegaly with mild pulmonary vascular congestion. This has progressed in the interval. There are few scattered patchy airspace opacities most pronounced at the lung bases. This could represent atelectasis or pneumonia. --ECHO: No significant valvular heart disease. Left ventricle systolic function is normal. Right ventricle systolic function is elevated at 30-40 mmHg Daily weight, I/Os, fluid restriction Supplemental Oxygen as needed Repeat CXR showed no congestion, improved patchy airspace opacities. Continue IV Lasix 40mg BID Discussed with State Editor Dr Archer today. Ok to give extra lasix. Monitor electrolytes. 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 Placed on long prednisone taper with Bactrim prophylaxis. Possible COPD Exacerbation --CT Chest:Diffuse atelectasis versus scarring predominantly in the lower lobes. Compression deformities in the T5 and T6 vertebral bodies, age indeterminate. Age-indeterminate rib fractures of the posterior right fourth and fifth ribs and left third rib. Correlation with point tenderness is recommended. --Normal Procalcitonin --Empirically started on Ceftriaxone, Doxycycline>> discontinued as per pulmonary recommendations Continue Prednisone course--currently on 30mg daily (30mg daily for 14 days ie till 12/21, THEN 20mg daily for 21 days as per [facility] Pulmonology--started during prior hospitalization) Continue Bactrim prophylaxis until prednisone dose is below 20 mg a day. Appreciate Pulmonology Input Continue home inhalers Needs Outpatient Sleep Study, PFTs CPAP at bedtime---Patient did not tolerate CPAP Continue Pulmicort, Perforomist Titrate oxygen to keep saturations 88-92% Currently on 4 L oxygen-- baseline (3L) Chronic atrial fibrillation Continue metoprolol Amiodarone was discontinued by pulmonary at [place] because of lung changes. On Eliquis for anticoagulation Hypertension: BP controlled CAD On aspirin, Metoprolol Morbid obesity: BMI 41 Chronic kidney disease stage III: Monitor renal function Anxiety: On Ativan p.r.n. Ambulatory dysfunction: Continue PT/OT. Will need SNF on dc DVT Px: On Eliquis. Code Status Full code Admission and Anticipated Discharge Date Admission Date: December 02, 2021 Subjective Patient seen and examined. Reports some shortness of breath with minimal activity, cough occasionally productive of small sputum. Denies any chest pain, palpitations Denies any nausea, vomiting, abdominal pain, diarrhea Denies any fevers or chills Physical Exam Constitutional: + well hydrated and + obese; no acute distress Eyes: PERRL, conjunctivae normal, anicteric sclerae ENMT: external ear and nose normal, oropharynx normal Respiratory: On nasal cannula. Not in respiratory distress Diminished breath sounds Cardiovascular: Rate/Rhythm: regular rate and regular rhythm Heart Sounds: + murmur S1 S2 Gastrointestinal (Abdomen): normal bowel sounds, soft, nontender, no hepatosplenomegaly Musculoskeletal: Trace pedal edema Neurologic: PERRL, EOMI, accommodation nl, no face palsy, no dysarthria Psychiatric: A+Ox3, euthymic affect Results & Data Results & Data ([facility]) Vital Signs (Past 12 Hours) Vital Signs Temp Pulse Pulse Pulse Resp BP BP 12/09/21 11:25 36.4 C L 75 16 107/73 12/09/21 07:42 36.6 C 76 20 104/72 12/09/21 07:25 76 12/09/21 07:04 77 18 12/09/21 04:01 36.4 C L 83 18 110/76 12/09/21 01:53 79 18 Pulse Ox 12/09/21 11:25 92 12/09/21 07:42 92 12/09/21 07:25 12/09/21 07:04 92 12/09/21 04:01 91 12/09/21 01:53 95 Laboratory Results Abnormal lab results 12/09/21 12/09/21 Range/Units 05:33 05:33 RDW Std Deviation 57.5 H (36.4-46.3) fL RDW Coeff of Allen 15.6 H (11.5-14.5) % MPV 10.7 H (7.4-10.4) fL Chloride 97 L (98-107) mmol/L Carbon Dioxide 34 H (21-32) mmol/L BUN 26 H (6-23) mg/dl BUN/Creatinine Ratio 24.5 H (10-20)
[2021-12-09] MEDS ORDERED: FUROSEMIDE INJ 20 MG/2 ML VIAL IV ONE (14:57)
[2021-12-10] MEDS: LEVALBUTEROL HCL 1.25 MG/3 ML NEB INH SCH ×4 (00:55→19:23)
[2021-12-10] MEDS: IPRATROPIUM BROMIDE NEB SOLN 0.02% 2.5 ML VIAL INH SCH ×4 (00:55→19:23)
[2021-12-10 06:38] LABS: Hematocrit (blood only) 45.9 % (37-47); Hemoglobin 15.1 g/dL (12.0-16.0); Mean Corpuscular Hemoglobin 32.5 pg (25-34); Mean Corpuscular Hgb Conc 32.9 g/dL (32-36); Mean Corpuscular Volume 98.9 fL (80-100); Mean Platelet Volume 10.9 fL (7.4-10.4); Platelet Count 178 K/uL (130-400); RDW Coefficient of Variation 15.5 % (11.5-14.5); RDW Standard Deviation 56.5 fL (36.4-46.3); Red Blood Count 4.64 M/uL (4.2-5.4); White Blood Count 8.47 K/uL (4.8-10.8)
[2021-12-10] MEDS: BUDESONIDE 0.5 MG/2 ML VIAL (PULMICORT) NEB SCH ×2 (06:58→19:23)
[2021-12-10] MEDS: FORMOTEROL 20 MCG/2 ML VIAL NEB SCH ×2 (06:58→19:24)
[2021-12-10 07:02] LABS: BUN Creatinine Ratio 23.7 (10-20); Calcium 9.1 mg/dl (8.5-10.1); Creatinine Clr Calc Pharmacy 37.8 ml/min; Est GFR (African American) 51.9 ml/min; Est GFR (Non-African American) 44.7 ml/min; Magnesium 2.2 mg/dl (1.7-2.4); Phosphorus 3.2 mg/dl (2.5-4.9); Potassium 3.7 mmol/L (3.5-5.1)
[2021-12-10] MEDS: CALCIUM 600MG + VIT D 400 IU TAB PO SCH ×2 (08:56→20:04)
[2021-12-10] MEDS: UMECLIDINIUM BROMIDE 62.5MCG/BLISTER 7 PUFFS/INHALER INH SCH (08:56)
[2021-12-10] MEDS: METOPROLOL TARTRATE 25 MG TAB PO SCH ×2 (08:57→20:04)
[2021-12-10] MEDS: MAGNESIUM OXIDE 400 MG TAB PO SCH (08:58)
[2021-12-10] MEDS: predniSONE 10 MG TABLET PO SCH (08:58)
[2021-12-10] MEDS: APIXABAN 5 MG TABLET PO SCH ×2 (08:58→20:03)
[2021-12-10] MEDS: FUROSEMIDE 40 MG/4 ML VIAL IV SCH ×2 (08:59→20:06)
[2021-12-10] MEDS: POTASSIUM CHLORIDE CRTAB 20 MEQ TABCR PO SCH ×2 (08:59→17:24)
[2021-12-10] MEDS: ASPIRIN 81 MG ECTAB PO SCH (09:00)
--- NOTE | 2021-12-10 10:19 | Hospitalist Progress Note ---
Date of Service December 10, 2021 Assessment & Plan (1) Acute diastolic heart failure: Plan: 81 yr female who presents with shortness of breath. Jfvno-fk-juvysxi respiratory failure with Hypoxia: (likely multifactorial - cardiac and pulmonary) Acute on Chronic diastolic Heart failure Patient is on 2L at rest and 3L with activity at baseline --CXR:Cardiomegaly with mild pulmonary vascular congestion. This has progressed in the interval. There are few scattered patchy airspace opacities most pronounced at the lung bases. This could represent atelectasis or pneumonia. --ECHO: No significant valvular heart disease. Left ventricle systolic function is normal. Right ventricle systolic function is elevated at 30-40 mmHg Daily weight, I/Os, fluid restriction Supplemental Oxygen as needed Repeat CXR showed no congestion, improved patchy airspace opacities. Has lost about 6kg since admission Continue IV Lasix 40mg BID Had discussed patient with [employer] Project Manager Dr Archer on 12/09/21 Will give extra lasix iv today. Monitor electrolytes. 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 Placed on long prednisone taper with Bactrim prophylaxis. Possible COPD Exacerbation --CT Chest:Diffuse atelectasis versus scarring predominantly in the lower lobes. Compression deformities in the T5 and T6 vertebral bodies, age indeterminate. Age-indeterminate rib fractures of the posterior right fourth and fifth ribs and left third rib. Correlation with point tenderness is recommended. --Normal Procalcitonin --Empirically started on Ceftriaxone, Doxycycline>> discontinued as per pulmonary recommendations Continue Prednisone course--currently on 30mg daily (30mg daily for 14 days ie till 12/21, THEN 20mg daily for 21 days as per [facility] Pulmonology--started during prior hospitalization) Continue Bactrim prophylaxis until prednisone dose is below 20 mg a day. Appreciate Pulmonology Input Continue home inhalers Needs Outpatient Sleep Study, PFTs CPAP at bedtime---Patient did not tolerate CPAP Continue Pulmicort, Perforomist Titrate oxygen to keep saturations 88-92% Currently on 4 L oxygen-- baseline (3L) Chronic atrial fibrillation Continue metoprolol Amiodarone was discontinued by pulmonary at [place] because of lung lilli nges. On Eliquis for anticoagulation Hypertension: BP controlled CAD On aspirin, Metoprolol Morbid obesity: BMI 41 Chronic kidney disease stage III: Monitor renal function Anxiety: On Ativan p.r.n. Ambulatory dysfunction: Continue PT/OT. Will need SNF on dc DVT Px: On Eliquis. Code Status Full code Discussed with RN to jacob ford Dc tele Admission and Anticipated Discharge Date Admission Date: December 02, 2021 Subjective Patient seen and examined. Reports some shortness of breath with activity, Still has cough occasionally productive of small sputum. Denies any chest pain, palpitations Denies any nausea, vomiting, abdominal pain, diarrhea Denies any fevers or chills Physical Exam Constitutional: + well hydrated and + obese; no acute distress Eyes: PERRL, conjunctivae normal, anicteric sclerae ENMT: external ear and nose normal, oropharynx normal Respiratory: Not in respiratory distress. on nasal cannula at 4l/min. Diminished breath sounds Cardiovascular: Rate/Rhythm: regular rate and regular rhythm Heart Sounds: + murmur Gastrointestinal (Abdomen): normal bowel sounds, soft, nontender, no hepatosplenomegaly Musculoskeletal: Trace pedal edema Neurologic: PERRL, EOMI, accommodation nl, no face palsy, no dysarthria Psychiatric: A+Ox3, euthymic affect Results & Data Results & Data ([facility]) Vital Signs (Past 12 Hours) Vital Signs Temp Pulse Pulse Resp BP Pulse Ox 12/10/21 08:00 36.4 C L 76 18 105/72 92 12/10/21 06:58 78 20 93 12/10/21 03:02 36.4 C L 83 18 111/75 93 12/10/21 00:56 81 20 93 12/09/21 23:44 85 12/09/21 23:02 36.7 C 84 20 121/78 93 Laboratory Results Abnormal lab results 12/10/21 12/10/21 Range/Units 05:57 05:57 RDW Std Deviation 56.5 H (36.4-46.3) fL RDW Coeff of Allen 15.5 H (11.5-14.5) % MPV 10.9 H (7.4-10.4) fL Chloride 97 L (98-107) mmol/L Carbon Dioxide 33 H (21-32) mmol/L BUN 27 H (6-23) mg/dl BUN/Creatinine Ratio 23.7 H (10-20)
[2021-12-10] MEDS ORDERED: FUROSEMIDE 40 MG/4 ML VIAL IV ONE (12:56)
[2021-12-11] MEDS: IPRATROPIUM BROMIDE NEB SOLN 0.02% 2.5 ML VIAL INH SCH ×4 (00:27→19:00)
[2021-12-11] MEDS: LEVALBUTEROL HCL 1.25 MG/3 ML NEB INH SCH ×4 (00:27→19:00)
[2021-12-11] MEDS: BUDESONIDE 0.5 MG/2 ML VIAL (PULMICORT) NEB SCH ×2 (07:03→19:00)
[2021-12-11] MEDS: FORMOTEROL 20 MCG/2 ML VIAL NEB SCH ×2 (07:03→19:00)
[2021-12-11 07:12] LABS: Calcium 9.3 mg/dl (8.5-10.1); Creatinine Clr Calc Pharmacy 39.6 ml/min; Est GFR (African American) 55.4 ml/min; Est GFR (Non-African American) 47.8 ml/min; Magnesium 2.2 mg/dl (1.7-2.4); Phosphorus 3.1 mg/dl (2.5-4.9); Potassium 3.5 mmol/L (3.5-5.1)
[2021-12-11] MEDS: FUROSEMIDE 40 MG/4 ML VIAL IV SCH ×3 (08:15→22:20)
[2021-12-11] MEDS: METOPROLOL TARTRATE 25 MG TAB PO SCH ×2 (08:16→20:17)
[2021-12-11] MEDS: MAGNESIUM OXIDE 400 MG TAB PO SCH (08:16)
[2021-12-11] MEDS: CALCIUM 600MG + VIT D 400 IU TAB PO SCH ×2 (08:16→20:17)
[2021-12-11] MEDS: POTASSIUM CHLORIDE CRTAB 20 MEQ TABCR PO SCH ×2 (08:17→16:51)
[2021-12-11] MEDS: guaiFENesin 600 MG TABCR PO PRN (08:17)
[2021-12-11] MEDS: APIXABAN 5 MG TABLET PO SCH ×2 (08:17→20:17)
[2021-12-11] MEDS: predniSONE 10 MG TABLET PO SCH (08:17)
[2021-12-11] MEDS: ASPIRIN 81 MG ECTAB PO SCH (08:17)
[2021-12-11] MEDS: UMECLIDINIUM BROMIDE 62.5MCG/BLISTER 7 PUFFS/INHALER INH SCH (08:18)
[2021-12-11] MEDS: SULFAMETHOXAZOLE/TRIMETHOPRIM DS 800/160MG TAB PO SCH (08:19)
--- NOTE | 2021-12-11 11:19 | Hospitalist Progress Note ---
Date of Service December 11, 2021 Assessment & Plan (1) Acute diastolic heart failure: Plan: 81 yr female who presents with shortness of breath. [id number] respiratory failure with Hypoxia: (likely multifactorial - cardiac and pulmonary) Acute on Chronic diastolic Heart failure Patient is on 2L at rest and 3L with activity at baseline --CXR:Cardiomegaly with mild pulmonary vascular congestion. This has progressed in the interval. There are few scattered patchy airspace opacities most pronounced at the lung bases. This could represent atelectasis or pneumonia. --ECHO: No significant valvular heart disease. Left ventricle systolic function is normal. Right ventricle systolic function is elevated at 30-40 mmHg Daily weight, I/Os, fluid restriction Supplemental Oxygen as needed Repeat CXR showed no congestion, improved patchy airspace opacities. Has lost about 7kg since admission Continue IV Lasix 40mg BID Had discussed patient with Guest Relations Associate Dr Archer on 12/09/21 Will give extra lasix iv prn. Monitor electrolytes. 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 Placed on long prednisone taper with Bactrim prophylaxis. Possible COPD Exacerbation --CT Chest:Diffuse atelectasis versus scarring predominantly in the lower lobes. Compression deformities in the T5 and T6 vertebral bodies, age indeterminate. Age-indeterminate rib fractures of the posterior right fourth and fifth ribs and left third rib. Correlation with point tenderness is recommended. --Normal Procalcitonin --Empirically started on Ceftriaxone, Doxycycline>> discontinued as per pulmonary recommendations Continue Prednisone course--currently on 30mg daily (30mg daily for 14 days ie till 12/21, THEN 20mg daily for 21 days as per [facility] Pulmonology--started during prior hospitalization) Continue Bactrim prophylaxis until prednisone dose is below 20 mg a day. Appreciate Pulmonology Input Continue home inhalers Needs Outpatient Sleep Study, PFTs CPAP at bedtime---Patient did not tolerate CPAP Continue Pulmicort, Perforomist Titrate oxygen to keep saturations 88-92% Currently on 3-4 L oxygen-- baseline (3L) Chronic atrial fibrillation Continue metoprolol Amiodarone was discontinued by pulmonary at [place] because of lung lilli nges. On Eliquis for anticoagulation Hypertension: BP controlled CAD On aspirin, Metoprolol Morbid obesity: BMI 41 Chronic kidney disease stage III: Monitor renal function Anxiety: On Ativan p.r.n. Ambulatory dysfunction: Continue PT/OT. Will need SNF on dc DVT Px: On Eliquis. Code Status Full code Admission and Anticipated Discharge Date Admission Date: December 02, 2021 Subjective Patient seen and examined. Reports exertional dyspnea, Still has cough occasionally productive of small sputum. Denies any chest pain, palpitations Denies any nausea, vomiting, abdominal pain, diarrhea Denies any fevers or chills Physical Exam Constitutional: + well hydrated and + obese; no acute distress Eyes: PERRL, conjunctivae normal, anicteric sclerae ENMT: external ear and nose normal, oropharynx normal Cardiovascular: Rate/Rhythm: regular rate and regular rhythm Heart Sounds: + murmur S1 S2 Gastrointestinal (Abdomen): normal bowel sounds, soft, nontender, no hepatosplenomegaly Musculoskeletal: +pedal edema Neurologic: PERRL, EOMI, accommodation nl, no face palsy, no dysarthria Psychiatric: A+Ox3, euthymic affect Results & Data Results & Data ([facility]) Vital Signs (Past 12 Hours) Vital Signs Temp Pulse Pulse Resp BP BP Pulse Ox 12/11/21 10:41 36.8 C 77 20 102/70 90 12/11/21 07:27 82 12/11/21 07:07 82 22 92 12/11/21 03:30 36.4 C L 84 22 109/75 93 12/11/21 00:28 86 18 94 12/10/21 23:25 36.6 C 89 20 102/68 94 Laboratory Results Abnormal lab results 12/11/21 Range/Units 06:15 Chloride 97 L (98-107) mmol/L Carbon Dioxide 33 H (21-32) mmol/L BUN 27 H (6-23) mg/dl BUN/Creatinine Ratio 25.0 H (10-20)
[2021-12-11] MEDS ORDERED: FUROSEMIDE 40 MG/4 ML VIAL IV ONE (11:24)
[2021-12-12] MEDS: IPRATROPIUM BROMIDE NEB SOLN 0.02% 2.5 ML VIAL INH SCH ×4 (00:10→19:13)
[2021-12-12] MEDS: LEVALBUTEROL HCL 1.25 MG/3 ML NEB INH SCH ×4 (00:10→19:14)
[2021-12-12] MEDS: BUDESONIDE 0.5 MG/2 ML VIAL (PULMICORT) NEB SCH ×2 (07:12→19:13)
[2021-12-12] MEDS: FORMOTEROL 20 MCG/2 ML VIAL NEB SCH ×2 (07:12→19:13)
[2021-12-12 07:52] LABS: BUN Creatinine Ratio 24.5 (10-20); Calcium 9.6 mg/dl (8.5-10.1); Creatinine Clr Calc Pharmacy 41.9 ml/min; Est GFR (African American) 59.3 ml/min; Est GFR (Non-African American) 51.2 ml/min; Magnesium 2.3 mg/dl (1.7-2.4); Phosphorus 3.1 mg/dl (2.5-4.9); Potassium 3.8 mmol/L (3.5-5.1)
[2021-12-12] MEDS: APIXABAN 5 MG TABLET PO SCH ×2 (09:26→20:11)
[2021-12-12] MEDS: POTASSIUM CHLORIDE CRTAB 20 MEQ TABCR PO SCH ×2 (09:27→16:10)
[2021-12-12] MEDS: METOPROLOL TARTRATE 25 MG TAB PO SCH ×2 (09:27→20:11)
[2021-12-12] MEDS: predniSONE 10 MG TABLET PO SCH (09:27)
[2021-12-12] MEDS: FUROSEMIDE 40 MG/4 ML VIAL IV SCH ×2 (09:27→20:11)
[2021-12-12] MEDS: ASPIRIN 81 MG ECTAB PO SCH (09:27)
[2021-12-12] MEDS: CALCIUM 600MG + VIT D 400 IU TAB PO SCH ×2 (09:28→20:10)
[2021-12-12] MEDS: UMECLIDINIUM BROMIDE 62.5MCG/BLISTER 7 PUFFS/INHALER INH SCH (09:28)
[2021-12-12] MEDS: MAGNESIUM OXIDE 400 MG TAB PO SCH (09:28)
--- NOTE | 2021-12-12 15:02 | Hospitalist Progress Note ---
Date of Service December 12, 2021 Assessment & Plan (1) Acute diastolic heart failure: Plan: 81 yr female who presents with shortness of breath. [id number] respiratory failure with Hypoxia: (likely multifactorial - cardiac and pulmonary) Acute on Chronic diastolic Heart failure Patient is on 2L at rest and 3L with activity at baseline --CXR:Cardiomegaly with mild pulmonary vascular congestion. This has progressed in the interval. There are few scattered patchy airspace opacities most pronounced at the lung bases. This could represent atelectasis or pneumonia. --ECHO: No significant valvular heart disease. Left ventricle systolic function is normal. Right ventricle systolic function is elevated at 30-40 mmHg Daily weight, I/Os, fluid restriction Supplemental Oxygen as needed Repeat CXR showed no congestion, improved patchy airspace opacities. Has lost about 7kg since admission Continue IV Lasix 40mg BID Monitor electrolytes. 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 Placed on long prednisone taper with Bactrim prophylaxis. Possible COPD Exacerbation --CT Chest:Diffuse atelectasis versus scarring predominantly in the lower lobes. Compression deformities in the T5 and T6 vertebral bodies, age indeterminate. Age-indeterminate rib fractures of the posterior right fourth and fifth ribs and left third rib. Correlation with point tenderness is recommended. --Normal Procalcitonin --Empirically started on Ceftriaxone, Doxycycline>> discontinued as per pulmonary recommendations Continue Prednisone course--currently on 30mg daily (30mg daily for 14 days ie till 12/21, THEN 20mg daily for 21 days as per [facility] Pulmonology--started during prior hospitalization) Continue Bactrim prophylaxis until prednisone dose is below 20 mg a day. Appreciate Pulmonology Input Continue home inhalers Needs Outpatient Sleep Study, PFTs CPAP at bedtime---Patient did not tolerate CPAP Continue Pulmicort, Perforomist Titrate oxygen to keep saturations 88-92% Currently on 3-4 L oxygen-- baseline (3L) Chronic atrial fibrillation Continue metoprolol Amiodarone was discontinued by pulmonary at [place] because of lung changes. On Eliquis for anticoagulation Hypertension: BP controlled CAD On aspirin, Metoprolol Morbid obesity: BMI 41 Chronic kidney disease stage III: Monitor renal function Anxiety: On Ativan p.r.n. Ambulatory dysfunction: Continue PT/OT. Will need SNF on dc DVT Px: On Eliquis. Code Status Full code Admission and Anticipated Discharge Date Admission Date: December 02, 2021 Subjective Patient seen and examined. Reports some improvement in exertional dyspnea, Still has cough Denies any chest pain, palpitations Denies any nausea, vomiting, abdominal pain, diarrhea Denies any fevers or chills Physical Exam Constitutional: + well hydrated and + obese; no acute distress Eyes: PERRL, conjunctivae normal, anicteric sclerae ENMT: external ear and nose normal, oropharynx normal Respiratory: Not in resp distress, diminished breath sounds Cardiovascular: Rate/Rhythm: regular rate and regular rhythm S1 S2 Gastrointestinal (Abdomen): normal bowel sounds, soft, nontender, no hepatosplenomegaly Musculoskeletal: Trace pedal edema Neurologic: PERRL, EOMI, accommodation nl, no face palsy, no dysarthria Psychiatric: A+Ox3, euthymic affect Results & Data Results & Data ([facility]) Vital Signs (Past 12 Hours) Vital Signs Temp Pulse Pulse Resp BP Pulse Ox 12/12/21 13:19 83 20 94 12/12/21 11:37 36.3 C L 77 17 110/76 93 12/12/21 07:42 36.4 C L 81 19 107/73 94 12/12/21 07:30 87 12/12/21 07:13 80 18 91 Laboratory Results Abnormal lab results 12/12/21 Range/Units 07:06 Chloride 97 L (98-107) mmol/L Carbon Dioxide 34 H (21-32) mmol/L BUN 25 H (6-23) mg/dl BUN/Creatinine Ratio 24.5 H (10-20)
[2021-12-12] MEDS ORDERED: FUROSEMIDE 40 MG/4 ML VIAL IV ONE (15:11)
[2021-12-13] MEDS: IPRATROPIUM BROMIDE NEB SOLN 0.02% 2.5 ML VIAL INH SCH ×2 (00:08→07:19)
[2021-12-13] MEDS: LEVALBUTEROL HCL 1.25 MG/3 ML NEB INH SCH ×2 (00:08→07:19)
[2021-12-13 06:43] LABS: BUN Creatinine Ratio 23.5 (10-20); Calcium 9.5 mg/dl (8.5-10.1); Creatinine Clr Calc Pharmacy 41.8 ml/min; Est GFR (African American) 59.3 ml/min; Est GFR (Non-African American) 51.2 ml/min; Magnesium 2.2 mg/dl (1.7-2.4); Phosphorus 3.3 mg/dl (2.5-4.9); Potassium 3.5 mmol/L (3.5-5.1)
[2021-12-13] MEDS: FORMOTEROL 20 MCG/2 ML VIAL NEB SCH ×2 (07:18→19:13)
[2021-12-13] MEDS: BUDESONIDE 0.5 MG/2 ML VIAL (PULMICORT) NEB SCH ×2 (07:18→19:13)
[2021-12-13] MEDS: METOPROLOL TARTRATE 25 MG TAB PO SCH ×2 (09:30→20:15)
[2021-12-13] MEDS: APIXABAN 5 MG TABLET PO SCH ×2 (09:31→20:16)
[2021-12-13] MEDS: CALCIUM 600MG + VIT D 400 IU TAB PO SCH ×2 (09:31→20:16)
[2021-12-13] MEDS: ASPIRIN 81 MG ECTAB PO SCH (09:31)
[2021-12-13] MEDS: FUROSEMIDE 40 MG/4 ML VIAL IV SCH ×2 (09:31→20:17)
[2021-12-13] MEDS: UMECLIDINIUM BROMIDE 62.5MCG/BLISTER 7 PUFFS/INHALER INH SCH (09:32)
[2021-12-13] MEDS: predniSONE 10 MG TABLET PO SCH (09:32)
[2021-12-13] MEDS: MAGNESIUM OXIDE 400 MG TAB PO SCH (09:32)
[2021-12-13] MEDS: POTASSIUM CHLORIDE CRTAB 20 MEQ TABCR PO SCH ×2 (09:36→17:06)
[2021-12-13] MEDS ORDERED: FUROSEMIDE 40 MG/4 ML VIAL IV ONE (12:02)
--- NOTE | 2021-12-13 12:02 | Hospitalist Progress Note ---
Date of Service December 13, 2021 Assessment & Plan (1) Acute diastolic heart failure: Plan: 81 yr female who presents with shortness of breath. [id number] respiratory failure with Hypoxia: (likely multifactorial - cardiac and pulmonary) Acute on Chronic diastolic Heart failure Patient is on 2L at rest and 3L with activity at baseline --CXR:Cardiomegaly with mild pulmonary vascular congestion. This has progressed in the interval. There are few scattered patchy airspace opacities most pronounced at the lung bases. This could represent atelectasis or pneumonia. --ECHO: No significant valvular heart disease. Left ventricle systolic function is normal. Right ventricle systolic function is elevated at 30-40 mmHg Daily weight, I/Os, fluid restriction Supplemental Oxygen as needed Repeat CXR showed no congestion, improved patchy airspace opacities. Has lost over 7kg since admission Continue IV Lasix 40mg BID Monitor electrolytes. 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 Placed on long prednisone taper with Bactrim prophylaxis. Possible COPD Exacerbation --CT Chest:Diffuse atelectasis versus scarring predominantly in the lower lobes. Compression deformities in the T5 and T6 vertebral bodies, age indeterminate. Age-indeterminate rib fractures of the posterior right fourth and fifth ribs and left third rib. Correlation with point tenderness is recommended. --Normal Procalcitonin --Empirically started on Ceftriaxone, Doxycycline>> discontinued as per pulmonary recommendations Continue Prednisone course--currently on 30mg daily (30mg daily for 14 days ie till 12/21, THEN 20mg daily for 21 days as per [facility] Pulmonology--started during prior hospitalization) Continue Bactrim prophylaxis until prednisone dose is below 20 mg a day. Appreciate Pulmonology Input Continue home inhalers Needs Outpatient Sleep Study, PFTs CPAP at bedtime---Patient did not tolerate CPAP Continue Pulmicort, Perforomist Titrate oxygen to keep saturations 88-92% Currently on 3 L oxygen-- baseline (3L) Chronic atrial fibrillation Continue metoprolol Amiodarone was discontinued by pulmonary at [place] because of lung changes. On Eliquis for anticoagulation Hypertension: BP controlled CAD On aspirin, Metoprolol Morbid obesity: BMI 41 Chronic kidney disease stage III: Monitor renal function Anxiety: On Ativan p.r.n. Ambulatory dysfunction: Continue PT/OT. Will need SNF on dc DVT Px: On Eliquis. Code Status Full code Plan to transition to po diuretic within 24-48h and dc to SNF Admission and Anticipated Discharge Date Admission Date: December 02, 2021 Subjective Patient seen and examined. Reports cough is much improved today Still has some KITCHEN Denies any chest pain, palpitations Denies any nausea, vomiting, abdominal pain, diarrhea Denies any fevers or chills Physical Exam Constitutional: + well hydrated and + obese; no acute distress Eyes: PERRL, conjunctivae normal, anicteric sclerae ENMT: external ear and nose normal, oropharynx normal Respiratory: Not in respiratory distress, on nasal cannula Diminished breath sounds Cardiovascular: Rate/Rhythm: regular rate and regular rhythm S1 S2 Gastrointestinal (Abdomen): normal bowel sounds, soft, nontender, no hepatosplenomegaly Musculoskeletal: pedal edema much improved Neurologic: PERRL, EOMI, accommodation nl, no face palsy, no dysarthria Psychiatric: A+Ox3, euthymic affect Results & Data Results & Data ([facility]) Vital Signs (Past 12 Hours) Vital Signs Temp Pulse Pulse Resp BP Pulse Ox 12/13/21 11:58 36.4 C L 81 16 102/71 94 12/13/21 08:00 77 12/13/21 07:21 36.3 C L 81 20 106/72 89 L 12/13/21 07:19 80 19 91 12/13/21 03:35 36.5 C 80 16 102/70 91 12/13/21 00:10 68 18 94 Laboratory Results Abnormal lab results 12/13/21 Range/Units 05:52 Carbon Dioxide 33 H (21-32) mmol/L BUN 24 H (6-23) mg/dl BUN/Creatinine Ratio 23.5 H (10-20)
[2021-12-14] MEDS: ALBUTEROL 0.083% NEBU SOLN 3 ML VIAL INH PRN (03:04)
[2021-12-14] MEDS: BUDESONIDE 0.5 MG/2 ML VIAL (PULMICORT) NEB SCH ×2 (07:08→19:16)
[2021-12-14] MEDS: FORMOTEROL 20 MCG/2 ML VIAL NEB SCH ×2 (07:12→19:16)
[2021-12-14 08:08] LABS: BUN Creatinine Ratio 21.6 (10-20); Calcium 9.7 mg/dl (8.5-10.1); Creatinine Clr Calc Pharmacy 38.4 ml/min; Est GFR (African American) 53.6 ml/min; Est GFR (Non-African American) 46.2 ml/min; Magnesium 2.2 mg/dl (1.7-2.4)
[2021-12-14] MEDS: POTASSIUM CHLORIDE CRTAB 20 MEQ TABCR PO SCH ×2 (09:35→17:31)
[2021-12-14] MEDS: METOPROLOL TARTRATE 25 MG TAB PO SCH ×2 (09:35→21:18)
[2021-12-14] MEDS: APIXABAN 5 MG TABLET PO SCH ×2 (09:35→21:18)
[2021-12-14] MEDS: MAGNESIUM OXIDE 400 MG TAB PO SCH (09:36)
[2021-12-14] MEDS: CALCIUM 600MG + VIT D 400 IU TAB PO SCH ×2 (09:36→21:18)
[2021-12-14] MEDS: predniSONE 10 MG TABLET PO SCH (09:36)
[2021-12-14] MEDS: FUROSEMIDE 40 MG/4 ML VIAL IV SCH ×2 (09:36→21:18)
[2021-12-14] MEDS: guaiFENesin 600 MG TABCR PO PRN (09:36)
[2021-12-14] MEDS: ASPIRIN 81 MG ECTAB PO SCH (09:36)
[2021-12-14] MEDS: SULFAMETHOXAZOLE/TRIMETHOPRIM DS 800/160MG TAB PO SCH (09:36)
[2021-12-14] MEDS: UMECLIDINIUM BROMIDE 62.5MCG/BLISTER 7 PUFFS/INHALER INH SCH (09:37)
[2021-12-14] MEDS ORDERED: COVID-19 VACC, TRIS(PFIZER)/PF 30 MCG/0.3 ML VIAL IM ONE (12:33)
--- NOTE | 2021-12-14 15:12 | Hospitalist Progress Note ---
Date of Service December 14, 2021 Assessment & Plan (1) Acute diastolic heart failure: Plan: 81 yr female who presents with shortness of breath. [id number] respiratory failure with Hypoxia: (likely multifactorial - cardiac and pulmonary) Acute on Chronic diastolic Heart failure Patient is on 2L at rest and 3L with activity at baseline --CXR:Cardiomegaly with mild pulmonary vascular congestion. This has progressed in the interval. There are few scattered patchy airspace opacities most pronounced at the lung bases. This could represent atelectasis or pneumonia. --ECHO: No significant valvular heart disease. Left ventricle systolic function is normal. Right ventricle systolic function is elevated at 30-40 mmHg Daily weight, I/Os, fluid restriction Supplemental Oxygen as needed Repeat CXR showed no congestion, improved patchy airspace opacities. Has lost over 7kg since admission Patient is stable for discharge to SNF. 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 Placed on long prednisone taper with Bactrim prophylaxis. Possible COPD Exacerbation --CT Chest:Diffuse atelectasis versus scarring predominantly in the lower lobes. Compression deformities in the T5 and T6 vertebral bodies, age indeterminate. Age-indeterminate rib fractures of the posterior right fourth and fifth ribs and left third rib. Correlation with point tenderness is recommended. --Normal Procalcitonin --Empirically started on Ceftriaxone, Doxycycline>> discontinued as per pulmonary recommendations Continue Prednisone course--currently on 30mg daily (30mg daily for 14 days ie till 12/21, THEN 20mg daily for 21 days as per [facility] Pulmonology--started during prior hospitalization) Continue Bactrim prophylaxis until prednisone dose is below 20 mg a day. Appreciate Pulmonology Input Continue home inhalers Needs Outpatient Sleep Study, PFTs CPAP at bedtime---Patient did not tolerate CPAP Continue Pulmicort, Perforomist Titrate oxygen to keep saturations 88-92% Currently on 3 L oxygen-- baseline (3L) Chronic atrial fibrillation Continue metoprolol Amiodarone was discontinued by pulmonary at [place] because of lung changes. On Eliquis for anticoagulation Hypertension: BP controlled CAD On aspirin, Metoprolol Morbid obesity: BMI 40 Chronic kidney disease stage III: Monitor renal function Anxiety: On Ativan p.r.n. Ambulatory dysfunction: Continue PT/OT. Will need SNF on dc DVT Px: On Eliquis. Code Status Full code CM working on SNF Patient will like to get COVID booster. Ordered Admission and Anticipated Discharge Date Admission Date: December 02, 2021 Subjective Patient seen and examined. Reports some improvement in exertional dyspnea and cough Denies any chest pain, palpitations Denies any nausea, vomiting, abdominal pain, diarrhea Denies any fevers or chills Reports some back pain Physical Exam Constitutional: + well hydrated and + obese; no acute distress Eyes: PERRL, conjunctivae normal, anicteric sclerae ENMT: external ear and nose normal, oropharynx normal Respiratory: Normal resp effort, diminished breath sounds Cardiovascular: Rate/Rhythm: regular rate and regular rhythm Heart Sounds: + murmur S1 S2 Gastrointestinal (Abdomen): normal bowel sounds, soft, nontender, no hepatosplenomegaly Musculoskeletal: Pedal edema improved Neurologic: PERRL, EOMI, accommodation nl, no face palsy, no dysarthria Psychiatric: A+Ox3, euthymic affect Results & Data Results & Data ([facility]) Vital Signs (Past 12 Hours) Vital Signs Temp Pulse Pulse Resp BP BP Pulse Ox 12/14/21 12:24 36.8 C 83 19 103/72 97 12/14/21 08:00 85 12/14/21 07:51 36.3 C L 85 93 H 112/77 93 12/14/21 07:09 80 20 95 12/14/21 03:48 36.4 C L 71 18 103/72 92 Laboratory Results Abnormal lab results 12/14/21 Range/Units 07:24 Chloride 97 L (98-107) mmol/L Carbon Dioxide 34 H (21-32) mmol/L BUN 24 H (6-23) mg/dl BUN/Creatinine Ratio 21.6 H (10-20)
[2021-12-15] MEDS: FORMOTEROL 20 MCG/2 ML VIAL NEB SCH ×2 (07:09→20:03)
[2021-12-15] MEDS: BUDESONIDE 0.5 MG/2 ML VIAL (PULMICORT) NEB SCH ×2 (07:09→19:18)
[2021-12-15 07:54] LABS: BUN Creatinine Ratio 21.5 (10-20); Calcium 9.5 mg/dl (8.5-10.1); Est GFR (Non-African American) 48.3 ml/min; Potassium 3.9 mmol/L (3.5-5.1)
[2021-12-15] MEDS ORDERED: FUROSEMIDE 40 MG/4 ML VIAL IV SCH (09:00)
[2021-12-15] MEDS: predniSONE 10 MG TABLET PO SCH (09:54)
[2021-12-15] MEDS: METOPROLOL TARTRATE 25 MG TAB PO SCH ×2 (09:54→19:50)
[2021-12-15] MEDS: CALCIUM 600MG + VIT D 400 IU TAB PO SCH ×2 (09:54→19:49)
[2021-12-15] MEDS: APIXABAN 5 MG TABLET PO SCH ×2 (09:54→19:49)
[2021-12-15] MEDS: guaiFENesin 600 MG TABCR PO PRN (09:55)
[2021-12-15] MEDS: MAGNESIUM OXIDE 400 MG TAB PO SCH (09:55)
[2021-12-15] MEDS: ASPIRIN 81 MG ECTAB PO SCH (09:56)
[2021-12-15] MEDS: POTASSIUM CHLORIDE CRTAB 20 MEQ TABCR PO SCH ×2 (09:56→17:14)
[2021-12-15] MEDS: UMECLIDINIUM BROMIDE 62.5MCG/BLISTER 7 PUFFS/INHALER INH SCH (09:56)
--- NOTE | 2021-12-15 11:57 | Hospitalist Progress Note ---
Date of Service December 15, 2021 Assessment & Plan (1) Acute diastolic heart failure: Plan: 81 yr female who presented with shortness of breath. [id number] respiratory failure with Hypoxia: (likely multifactorial - cardiac and pulmonary) Acute on Chronic diastolic Heart failure Patient is on 2L at rest and 3L with activity at baseline --CXR:Cardiomegaly with mild pulmonary vascular congestion. This has progressed in the interval. There are few scattered patchy airspace opacities most pronounced at the lung bases. This could represent atelectasis or pneumonia. --ECHO: No significant valvular heart disease. Left ventricle systolic function is normal. Right ventricle systolic function is elevated at 30-40 mmHg Daily weight, I/Os, fluid restriction Supplemental Oxygen as needed Repeat CXR showed no congestion, improved patchy airspace opacities. Has had good diuresis since admission Lasix changed to po Patient is stable for discharge to SNF. 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 Placed on long prednisone taper with Bactrim prophylaxis. Possible COPD Exacerbation --CT Chest:Diffuse atelectasis versus scarring predominantly in the lower lobes. Compression deformities in the T5 and T6 vertebral bodies, age indeterminate. Age-indeterminate rib fractures of the posterior right fourth and fifth ribs and left third rib. Correlation with point tenderness is recommended. --Normal Procalcitonin --Empirically started on Ceftriaxone, Doxycycline>> discontinued as per pulmonary recommendations Continue Prednisone course--currently on 30mg daily (30mg daily for 14 days ie till 12/21, THEN 20mg daily for 21 days as per [facility] Pulmonology--started during prior hospitalization) Continue Bactrim prophylaxis until prednisone dose is below 20 mg a day. Appreciate Pulmonology Input Continue home inhalers Needs Outpatient Sleep Study, PFTs CPAP at bedtime---Patient did not tolerate CPAP Continue Pulmicort, Perforomist Titrate oxygen to keep saturations 88-92% Currently on 3 L oxygen-- baseline (3L) Chronic atrial fibrillation Continue metoprolol Amiodarone was discontinued by pulmonary at [place] because of lung changes. On Eliquis for anticoagulation Hypertension: BP controlled CAD On aspirin, Metoprolol Morbid obesity: BMI 40 Chronic kidney disease stage III: Monitor renal function Anxiety: On Ativan p.r.n. Ambulatory dysfunction: Continue PT/OT. Will need SNF on dc DVT Px: On Eliquis. Code Status - Full code CM working on SNF Patient got COVID booster yesterday Can dc tele while waiting on SNF Admission and Anticipated Discharge Date Admission Date: December 02, 2021 Subjective Patient seen and examined. Reports occasional exertional dyspnea and cough Denies any chest pain, palpitations Denies any nausea, vomiting, abdominal pain, diarrhea Denies any fevers or chills Physical Exam Constitutional: + well hydrated and + obese; no acute distress Eyes: PERRL, conjunctivae normal, anicteric sclerae ENMT: external ear and nose normal, oropharynx normal Respiratory: normal respiratory effort; no respiratory distress Improved air entry Cardiovascular: Rate/Rhythm: regular rate and regular rhythm Heart Sounds: + murmur S1 S2 Gastrointestinal (Abdomen): normal bowel sounds, soft, nontender, no hepatosplenomegaly Musculoskeletal: Improved pedal edema Neurologic: PERRL, EOMI, accommodation nl, no face palsy, no dysarthria Psychiatric: A+Ox3, euthymic affect Results & Data Results & Data ([facility]) Vital Signs (Past 12 Hours) Vital Signs Temp Pulse Pulse Resp BP BP Pulse Ox 12/15/21 11:42 36.4 C L 91 H 19 95/72 L 91 12/15/21 07:38 74 12/15/21 07:37 36.7 C 77 19 96/69 L 92 12/15/21 07:11 78 16 93 12/15/21 03:13 36.6 C 59 L 18 145/82 H 96 Laboratory Results Abnormal lab results 12/15/21 Range/Units 06:58 Carbon Dioxide 34 H (21-32) mmol/L BUN/Creatinine Ratio 21.5 H (10-20)
[2021-12-15] MEDS: FUROSEMIDE 40 MG TAB PO SCH (17:14)
[2021-12-15] MEDS: ALBUTEROL 0.083% NEBU SOLN 3 ML VIAL INH PRN (19:18)
[2021-12-16] MEDS: FORMOTEROL 20 MCG/2 ML VIAL NEB SCH (07:12)
[2021-12-16] MEDS: ALBUTEROL 0.083% NEBU SOLN 3 ML VIAL INH PRN (07:14)
[2021-12-16] MEDS: BUDESONIDE 0.5 MG/2 ML VIAL (PULMICORT) NEB SCH (07:14)
[2021-12-16 09:30] LABS: BUN Creatinine Ratio 22.7 (10-20); Calcium 9.4 mg/dl (8.5-10.1); Creatinine Clr Calc Pharmacy 37.9 ml/min; Est GFR (African American) 54.1 ml/min; Est GFR (Non-African American) 46.7 ml/min; Potassium 4.2 mmol/L (3.5-5.1)
[2021-12-16] MEDS: CALCIUM 600MG + VIT D 400 IU TAB PO SCH (09:56)
[2021-12-16] MEDS: METOPROLOL TARTRATE 25 MG TAB PO SCH (09:56)
[2021-12-16] MEDS: guaiFENesin 600 MG TABCR PO PRN (09:56)
[2021-12-16] MEDS: APIXABAN 5 MG TABLET PO SCH (09:56)
[2021-12-16] MEDS: predniSONE 10 MG TABLET PO SCH (09:57)
[2021-12-16] MEDS: ASPIRIN 81 MG ECTAB PO SCH (09:57)
[2021-12-16] MEDS: MAGNESIUM OXIDE 400 MG TAB PO SCH (09:58)
[2021-12-16] MEDS: POTASSIUM CHLORIDE CRTAB 20 MEQ TABCR PO SCH (09:58)
[2021-12-16] MEDS: SULFAMETHOXAZOLE/TRIMETHOPRIM DS 800/160MG TAB PO SCH (09:58)
[2021-12-16] MEDS: FUROSEMIDE 40 MG TAB PO SCH (09:59)
[2021-12-16] MEDS: UMECLIDINIUM BROMIDE 62.5MCG/BLISTER 7 PUFFS/INHALER INH SCH (10:51)
--- NOTE | 2021-12-16 13:15 | Hospitalist Progress Note ---
Date of Service December 16, 2021 Assessment & Plan (1) Acute diastolic heart failure: Plan: Patient is an 81 yr female who presented with shortness of breath. Lzkwo-eq-[id number] respiratory failure with Hypoxia: (likely multifactorial) Acute on Chronic diastolic Heart failure Patient is on 2L at rest and 3L with activity at baseline --CXR:Cardiomegaly with mild pulmonary vascular congestion. This has progressed in the interval. There are few scattered patchy airspace opacities most pronounced at the lung bases. This could represent atelectasis or pneumonia. --ECHO: No significant valvular heart disease. Left ventricle systolic function is normal. Right ventricle systolic function is elevated at 30-40 mmHg Repeat CXR showed no congestion, improved patchy airspace opacities. 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 Placed on long prednisone taper with Bactrim prophylaxis. Possible COPD Exacerbation --CT Chest:Diffuse atelectasis versus scarring predominantly in the lower lobes. Compression deformities in the T5 and T6 vertebral bodies, age indeterminate. Age-indeterminate rib fractures of the posterior right fourth and fifth ribs and left third rib. Correlation with point tenderness is recommended. --Normal Procalcitonin --Empirically started on Ceftriaxone, Doxycycline>> discontinued as per pulmonary recommendations Continue Prednisone course--currently on 30mg daily (30mg daily for 14 days--till 12/21, THEN 20mg daily for 21 days as per [facility] Pulmonology--started during prior hospitalization) Continue Bactrim prophylaxis until prednisone dose is below 20 mg a day. Appreciate Pulmonology Input Continue home inhalers Needs Outpatient Sleep Study, PFTs CPAP at bedtime---Patient did not tolerate CPAP Continue Pulmicort, Perforomist Titrate oxygen to keep saturations 88-92% Currently on 3 L oxygen-- baseline (3L) Respiratory status seems to be back to baseline Chronic atrial fibrillation Continue metoprolol Amiodarone was discontinued by pulmonary at [place] because of lung changes. On Eliquis for anticoagulation Hypertension: BP Stable CAD On aspirin, Metoprolol Morbid obesity: BMI 40 Chronic kidney disease stage III: Monitor renal function Anxiety: On Ativan p.r.n. Ambulatory dysfunction: Continue PT/OT: Needs SNF DVT Px: On Eliquis. Code Status Full code Disposition SNF Admission and Anticipated Discharge Date Admission Date: December 02, 2021 Subjective Patient is seen and examined bedside States having mild back discomfort Otherwise feels well Denies any shortness of breath, chest pain, dizziness, nausea, abdominal pain Offers no other complaints Neck swelling much improved Review of Systems Review of Systems: All systems reviewed & are unremarkable except as noted in Subjective Physical Exam Physical Exam: Physical Exam: Vitals signs as noted above General Appearance:Obese, no apparent distress Head: normocephalic, Atraumatic Eyes: normal inspection, EOMI Neck: supple, Trachea midline Respiratory/Chest: Decreased breath sounds, CTA, No accessory muscle use Cardiovascular: S1, S2, + murmur Abdomen/GI:Soft, Non tender, Bowel sounds present Extremities/Musculoskeletal:normal inspection, 1+ B/L LE edema improved Neurologic/Psych:AAOX3, grossly no focal neurological deficits Skin: normal color, warm Results & Data Results & Data ([facility]) Vital Signs (Past 12 Hours) Vital Signs Temp Pulse Resp BP Pulse Ox 12/16/21 08:00 36.5 C 83 18 98/66 L 90 12/16/21 07:14 81 18 96 Laboratory Results [facility] 12/16/21 08:28 Sodium 136 Potassium 4.2 Chloride 98 Carbon Dioxide 33 H BUN 25 H Creatinine 1.10 Glucose 96 Calcium 9.4
--- NOTE | 2021-12-16 13:28 | Discharge Summary ---
Date of Service December 16, 2021 Admission HPI Per Admitting Provider CHIEF COMPLAINT: Shortness of breath. HISTORY OF PRESENT ILLNESS: This is an 81-year-old female with past medical history significant for chronic respiratory failure on 3 liters of oxygen, history of multiple thyroid nodules, hyperlipidemia, history of COPD, organizing pneumonia, persistent asthma, history of multifocal pneumonia, chronic atrial fibrillation, chronic heart failure with preserved ejection fraction, hypertension, history of CAD, morbid obesity, GERD, chronic kidney disease stage III, osteoarthritis, compression deformity vertebrae, ambulatory dysfunction, anxiety. Presents with shortness of breath. The patient was recently in [facility] for 1 week for treatment for pneumonia and her CTA chest was done, there was no PE, but showing multifocal pneumonia and she was tachypneic requiring high oxygenation levels, and she received antibiotics. Pulmonary was consulted and pulmonary thinks it is organizing pneumonia and recommended a long taper of prednisone along with Bactrim for PJP prophylaxis, also recommended to stop amiodarone due to lung changes. 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 Denies any fevers. Chest pain is more when taking deep breath. No headache, no blurred visions. Has some runny nose, has some sore throat. Appetite is okay. No difficulty swallowing. No nausea, no abdominal pain. Normal bowel and bladder movements. Has swelling in the legs. Says the swelling in the legs is same, no change. Admission Exam Per Admitting Provider PHYSICAL EXAMINATION: GENERAL: The patient is morbidly obese, not in acute distress. VITAL SIGNS: Temperature 36.3, pulse 100, respiratory rate 28, blood pressure 143/83, oxygen 95% on 7 liters. HEENT: Pupils equal, round and reactive to light. Oral mucosa moist. NECK: No JVD, no neck masses. CARDIOVASCULAR: S1 and S2 heard. Regular rate and rhythm. No murmur, no gallop. RESPIRATORY SYSTEM: Normal AP diameter. Tachypnea present. Mild bilateral rhonchi. No wheezing. ABDOMEN: Soft, bowel sounds present, nontender, no distention. CENTRAL NERVOUS SYSTEM: Alert and oriented. No facial droop. Speech is clear. Insight is good. Obeys simple commands. Moves extremities. EXTREMITIES: Bilateral lower extremity gross pedal edema present, no erythema seen. Principal Diagnosis Acute diastolic heart failure Pzdlo-pd-cbbstse respiratory failure with Hypoxia Chronic atrial fibrillation Rib fractures Discharge Data Allergies Allergy/AdvReac Type Severity Reaction Status Date / Time rivaroxaban Allergy Unknown RASH Verified 08/10/21 14:23 adhesive AdvReac Mild TAPE - Verified 08/10/21 14:23 TEARS SKIN Consultations 12/02/21 01:11 ED Decision to Admit Stat 12/02/21 08:00 Consult Cardiology Routine Consult Pulmonology Routine 12/02/21 14:27 Consult Health Information Management Stat Ordered Studies 12/02/21 01:57 CT chest diagnostic wo con Urgent Hospital Course (1) Acute diastolic heart failure: Patient is an 81 yr female who presented with shortness of breath. Srcih-ri-nbghbej respiratory failure with Hypoxia: (likely multifactorial) Acute on Chronic diastolic Heart failure Patient is on 2L at rest and 3L with activity at baseline --CXR:Cardiomegaly with mild pulmonary vascular congestion. This has progressed in the interval. There are few scattered patchy airspace opacities most pronounced at the lung bases. This could represent atelectasis or pneumonia. --ECHO: No significant valvular heart disease. Left ventricle systolic function is normal. Right ventricle systolic function is elevated at 30-40 mmHg Repeat CXR showed no congestion, improved patchy airspace opacities. 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 Placed on long prednisone taper with Bactrim prophylaxis. Possible COPD Exacerbation --CT Chest:Diffuse atelectasis versus scarring predominantly in the lower lobes. Compression deformities in the T5 and T6 vertebral bodies, age indeterminate. Age-indeterminate rib fractures of the posterior right fourth and fifth ribs and left third rib. Correlation with point tenderness is recommended. --Normal Procalcitonin --Empirically started on Ceftriaxone, Doxycycline>> discontinued as per pulmonary recommendations Continue Prednisone course--currently on 30mg daily (30mg daily for 14 days--till 12/21, THEN 20mg daily for 21 days as per [facility] Pulmonology--started during prior hospitalization) Continue Bactrim prophylaxis until prednisone dose is below 20 mg a day. Appreciate Pulmonology Input Continue home inhalers Needs Outpatient Sleep Study, PFTs CPAP at bedtime---Patient did not tolerate CPAP Continue Pulmicort, Perforomist Titrate oxygen to keep saturations 88-92% Currently on 3 L oxygen-- baseline (3L) Respiratory status seems to be back to baseline Chronic atrial fibrillation Continue metoprolol Amiodarone was discontinued by pulmonary at [place] because of lung changes. On Eliquis for anticoagulation Hypertension: BP Stable CAD On aspirin, Metoprolol Morbid obesity: BMI 40 Chronic kidney disease stage III: Monitor renal function Anxiety: On Ativan p.r.n. Ambulatory dysfunction: Continue PT/OT: Needs SNF DVT Px: On Eliquis. Code Status Full code Disposition SNF Total Time Total Time Spent Total Time Spent (In Minutes): 48 minutes Discharge Plan Discharge Items Patient Disposition: Transfer Assisted Fac Reason For Visit: SOB Discharge Diagnosis: Acute diastolic heart failure Yavhk-vn-ytszees respiratory failure with Hypoxia Chronic atrial fibrillation Rib fractures Activity: Per Instructions section Exercise/Sports: Gradually increase as tolerated Non-emergency contact: Primary Care Provider, Medical Assistant Instructor and Sole Molder Call non-emergency contact if: you have any medication questions, your symptoms worsen, your pain is concerning for you and you have a fever Follow-up/Referrals: Neto Martinez MD [Primary Care Provider] - Diet: Heart Healthy Fluids: 1800ml (7 cups) Addtl Attending Provider Instructions: Follow up with your PCP Dr.Joseph aMrtinez in 1 week upon discharge from rehab facility Follow-up with your compounder flavorings at [facility] in 2 to 3 weeks as advised Follow-up with your oil bay technician in 2-4 weeks --- Continue Bactrim DS on Tuesday and Fridays till 10/23/21 and STOP --- Continue prednisone 30 mg daily till 10/23/21 and then start taking 20mg daily for 3 weeks----further recommendations as per your compounder flavorings. Seek immediate medical attention if your symptoms reoccur or worsen Please take all medications as instructed on discharge list below. Please call if you have any questions or problems. You can reach a [facility] hospitalist on duty at [facility] 24 hours a day by calling [phone] Call your Primary Care doctor if any of the following symptoms or problems start or get worse: * Shortness of breath or difficulty breathing * Wake up at night short of breath * Chest pain * Cough * Swelling of your hands, feet, or legs * More fatigued or tired with your normal activity * Palpitations - sudden fast heart beats WEIGHT * Weigh yourself every morning after using the bathroom. * Use the same scale. * Wear the same amount of clothing. * Write your weight down on a chart. * Call your Primary Care doctor if you gain more than 2-3 pounds in 1-2 days. MEDICATIONS * Use this discharge instruction sheet for medication instructions. * Take your medications at the time your doctor ordered. * Do not skip a dose of your medicines. * If you miss a dose of medicine, take it as soon as possible, but DO NOT DOUBLE A DOSE. * Read your medicine information when you get home. * Know all of the side effects of your medicine. If in doubt, ask your pharmacist * Call your Primary Care doctor's office if you have any side effects. * Be sure all of your doctors know what medicine and herbs you take (including cold, flu, and herbal medicine). Take the following with you to your follow-up doctor appointments: * Weight Chart * Medication List * List of questions Do not drink excessive alcohol, beer or wine. Pending Studies at Discharge: No Stand-Alone Forms: My [facility] Skilled Items Patient informed of condition?: Yes DNR: No Discharge Level of Care: Skilled Communicable Disease: No Discharge Prognosis: Stable Lines: None Urinary Catheter: No Medications and DC Order Prescriptions: Continued potassium chloride 20 mEq tablet extended release 20 meq PO AMHS Qty: 90 RF: 3 prednisone 10 mg Tablet 10 mg PO DIRECTED RF: 0 albuterol sulfate 2.5 mg /3 mL (0.083 %) solution for nebulization 2.5 mg inhalation Q6 PRN (Reason: Shortness Of Breath Or Wheezing) RF: 0 metoprolol tartrate 25 mg tablet 12.5 mg PO BID RF: 0 furosemide 40 mg tablet 40 mg PO BID RF: 0 calcium carbonate-vitamin D3 [Calcium + D] 600 mg-5 mcg (200 unit) Tablet 1 tab PO BID RF: 0 lorazepam [Ativan] 0.5 mg Tablet 0.5 mg PO TID PRN (Reason: Anxiety) RF: 0 Spiriva with HandiHaler 18 mcg capsule, w/inhalation device 18 mcg INHALATION DAILY RF: 0 guaifenesin [Mucinex] 600 mg Tablet Extended Release 12hr 600 mg PO Q12H PRN (Reason: Cough) RF: 0 Breo Ellipta 200-25 mcg/dose blister with device 1 inh INHALATION DAILY RF: 0 magnesium oxide 400 mg magnesium Tablet 400 mg PO DAILY RF: 0 Senna-S 1 tab 1 tab PO DAILY PRN (Reason: Constipation) RF: 0 aspirin 81 mg 81 mg PO DAILY RF: 0 Eliquis 5 mg tablet 5 mg PO BID RF: 0 Changed sulfamethoxazole-trimethoprim 800-160 mg tablet 1 tab PO Q72H Qty: 0 RF: 0 Discharge Orders: Discharge Order (Routine); Ordered 12/16/21 Ordered By: Terry Zhang Admission Data Admit Date/Time: 12/02/21 01:57 Attending Provider: Terry Zhang Admit Provider: Burke Douglas Primary Care Provider: Neto Martinez Other Providers: [facility] ; Terry Zhang ; Burke Douglas ; Jas Archer ; Uriah Lobato
[2021-12-16] MEDS: ACETAMINOPHEN 325 MG TAB PO PRN (15:56)
--- NOTE | 2021-12-21 13:20 | Coding Query ---
To promote full compliance with coding requirements relating to patient care, provider participation is requested in all cases of feeder tender uncertainty. Please assist us with the question(s) below: Coding Question(s): The diagnosis below was documented in the H&P, then subsequently fell off all further documentation. Please indicate if it is still a possible diagnosis or ruled out. Physician's Response(s): POSSIBLE MULTIFOCAL PNEUMONIA - (documented on H&P with, "Her respiratory failure could be from chronic obstructive pulmonary disease exacerbation, could be from congestive heart failure and also multifocal pneumonia. Empirically starting on Rocephin, doxycycline, IV Solu-Medrol 40 b.i.d., nebs around the clock and p.r.n. home inhalers", and with documentation through the record of a history of Pneumonia, and the rest of the chart only documents chest x-ray finding of possible pneumonia) ( ) Diagnosed and POA. Please specify further below, in your clinical opinion regarding Pneumonia: (x ) likely ongoing acute organizing Pneumonia ( ) Multifocal Pneumonia, Unspecified ( ) Other Pneumonia: Please Specify ( ) Diagnosed and not POA. Please specify further below, in your clinical opinion regarding Pneumonia: ( ) likely ongoing acute organizing Pneumonia ( ) Multifocal Pneumonia, Unspecified ( ) Other Pneumonia: Please Specify ( ) Ruled out ( ) Other (please specify) MTDD
--- NOTE | 2021-12-21 13:28 | Coding Query ---
CODING QUERY To promote full compliance with coding requirements relating to patient care, provider participation is requested in all cases of hand rounder uncertainty. Please assist us with the question(s) below: Coding Question(s): Acute on Chronic Respiratory Failure is documented through the record with documentation on the H&P of, "Her respiratory failure could be from chronic obstructive pulmonary disease exacerbation, could be from congestive heart failure and also multifocal pneumonia", and upon Discharge Summary, "Pevye-ht-garoamz respiratory failure with Hypoxia: (likely multifactorial)". Please Specify below, in your clinical opinion, regarding the multifactorial causes of the Acute Respiratory Failure, in your clinical opinion. Acute Respiratory Failure is likely caused by: Please choose the diagnosis(es) that are most likely causing the Acute Respiratory Failure, in your opinion. ( x) Acute on Chronic Diastolic Heart Failure ( x ) COPD Exacerbation ( x ) Pneumonia ( ) Obesity Hypoventilation Syndrome ( ) Other: Please Specify ( ) Unknown Physician's Response(s): Thank you Kely Ferrara Principal Diagnosis: "that condition established after study, to be chiefly responsible for occasioning the admission of the patient to the hospital for care." Co-Existing Principal Diagnosis: "when two or more diagnoses equally meet the criteria for principal diagnosis as determined by the circumstances of admission, diagnostic work up, and/or therapy provided, and the Alphabetic Index, Tabular List, or another coding guideline does not provide sequencing direction, any one of the diagnoses may be sequenced first." "When the physician has documented what appears to be a current diagnosis in the body of the record, but has not included the diagnosis in the final diagnostic statement, the physician should be asked whether the diagnosis should be added." (Source Coding [facility] 2 QTR90. p3-4) KATHYA
== END 2021-12-16 16:04 | DRG 196 ==
LOC: ED 22:51 → 2S 12-02 01:57 → SUATTDRO 12-02 01:57 → 2S 12-02 02:55 → 3W 12-15 16:05